=== PATIENT | female | born 1970 | race Caucasian/White ===

== ENCOUNTER → 2016-10-28 | Outpatient (CLI) | payer BC ==
[~2016-10-28] MED LIST: GLC500 PO; RIZA10TA18 PO; SUMA100T16 PO; TOPI50TA16 PO
== END | disposition home or self-care (01) ==
LOC: C.PAPS 09:52
PROVIDERS: ATTEND Physician Assistant
DX: Z01.419 Encounter for gynecological examination (general) (routine) without abnormal findings (principal)

== ENCOUNTER 2018-03-24 22:08 | Emergency (ER) | payer BC ==
[~2018-03-24] VITALS: Ht 157.5 cm; Wt 76.6 kg
[2018-03-24 22:13] VITALS: TEMP 37; Ht 157.5 cm; Wt 76.6 kg
[2018-03-24] MEDS ORDERED: KETOROLAC TROMETHAMINE 30 MG/ML VIAL IV STA (22:35)
--- NOTE | 2018-03-24 23:03 | DIAGNOSTIC IMAGING REPORT ---
L PELVIS/UNILATERAL HIP 2-3VIEWS CLINICAL HISTORY: 48 years-old Female presenting with severe left hip pain. TECHNIQUE: Single frontal view of the pelvis and frontal and frog-leg lateral views of the left hip were obtained. COMPARISON: None. FINDINGS: Sacroiliac joints, pubic symphysis, and hip joints congruent. Bony pelvis intact. No acute fracture or malalignment. No advanced degenerative change. The left femoral head is normal-appearing and symmetric. IMPRESSION: No acute osseous injury. Electronically signed by: Bk Billingsley M.D. 03/24/2018 11:02 PM Dictated Date/Time: 03/24/2018 11:00 PM
[2018-03-24 23:05] LABS: BASO % 0.6 %; BASO ABS # 0.07 K/uL (0-0.2); EOS % 5.1 %; HEMATOCRIT 43.8 % (37-47); HEMOGLOBIN 14.3 g/dL (12.0-16.0); IG# 0.04 K/uL (0.00-0.02); LYMPH % 27.2 %; LYMPH ABS # 3.19 K/uL (1.2-3.4); MEAN CELL VOLUME 84.6 fL (80-100); MEAN CORPUSCULAR HEMOGLOBIN 27.6 pg (25-34); MEAN CORPUSCULAR HGB CONC 32.6 g/dl (32-36); MEAN PLATELET VOLUME 10.5 fL (7.4-10.4); MONO % 9.5 %; MONO ABS # 1.12 K/uL (0.11-0.59); NEUT % 57.3 %; NEUT ABS # 6.71 K/uL (1.4-6.5); PLATELET COUNT 379 K/uL (130-400); RED CELL DISTRIBUTION WIDTH CV 13.5 % (11.5-14.5); RED CELL DISTRIBUTION WIDTH SD 41.1 fL (36.4-46.3); WHITE BLOOD COUNT 11.73 K/uL (4.8-10.8)
[2018-03-24 23:24] LABS: CALCIUM 9.1 mg/dl (8.5-10.1); CREATININE 0.91 mg/dl (0.60-1.20)
[2018-03-24 23:29] LABS: POTASSIUM 3.8 mmol/L (3.5-5.1)
[2018-03-24] MEDS ORDERED: PANT40TA PO (23:34)
[2018-03-24] MEDS ORDERED: SUCR1TAB29 PO (23:39)
[2018-03-24] MEDS ORDERED: DICY10CA55 PO (23:41)
[2018-03-25] MEDS ORDERED: OPTIRAY 320 IV PRN
[2018-03-25] MEDS ORDERED: MoRPHine SULFATE 4 MG/ML 1 ML CARP\\VIAL IV STA (01:12)
[2018-03-25] MEDS ORDERED: ONDANSETRON INJ 2 MG/ML 2 ML VIAL IV STA (01:12)
[2018-03-25] MEDS ORDERED: OXYCODONE IR HOME PACK PO ONE (01:15)
[2018-03-25] MEDS ORDERED: ONDANSETRON HOME PACK 4MG OD TAB PO ONE (01:15)
[2018-03-25 01:38] VITALS: BP 145/90; PULSE 78; O2SAT 98
--- NOTE | 2018-03-25 04:19 | EMERGENCY ROOM VISIT NOTE ---
History First contact with patient: 22:21 Chief Complaint: HIP PAIN Stated Complaint: LEFT HIP PAIN History of Present Illness The patient is a 48 year old female who presents to the Emergency Room with complaints of severe left hip pain getting progressively worse over the past 4 days. She states she feels like it might be swollen. No injury to the area. Pain described as aching, ranging in severity 6 out of 10 worse with movement and better with rest. It does not radiate. Patient denies chest pain, dyspnea , fever, chills, nausea, vomiting, diarrhea, back pain, urinary symptoms, numbness, tingling, localized weakness. Review of Systems An 10 system review of systems was completed with positives and pertinent negatives listed in the HPI. Past Medical/Surgical History IBS, PCO S, GERD, migraines Social History Smoking Status: Never Smoker Alcohol Use: none Drug Use: none Marital Status: Housing Status: lives with family Current/Historical Medications Scheduled Pantoprazole (Protonix), 40 MG PO DAILY Rizatriptan Benzoate (Maxalt), 10 MG PO PRN Sucralfate (Carafate), 1 GM PO QID Sumatriptan Succinate (Imitrex), 100 MG PO PRN Scheduled PRN Dicyclomine Hcl (Bentyl), 10 MG PO TID PRN for CRAMPING Physical Exam Vital Signs Date Time Temp Pulse Resp B/P (MAP) Pulse Ox O2 Delivery O2 Flow Rate FiO2 03/25/18 01:38 78 20 145/90 98 Room Air 03/25/18 00:17 82 22 136/85 98 Room Air 03/24/18 22:13 37.0 106 20 163/96 97 Room Air Physical Exam VITALS: Vitals are noted on the nurse's note and reviewed by myself. Vital signs reviewed. GENERAL: Pleasant female, in no acute distress, nondiaphoretic, well-developed well-nourished. SKIN: The skin was without rashes, erythema, edema, or bruising. There is no tenting of the skin. Capillary reflex less than 2 seconds. HEAD: Normocephalic atraumatic. EARS: External auditory canals clear, tympanic membranes pearly rodriguez without erythema or effusion bilaterally. EYES: Pupils equal round and reactive to light and accommodation. Conjunctivae without injection, sclerae without icterus. Extraocular movements intact. NOSE: Patent, turbinates without inflammation or discharge. MOUTH: Mucous membranes moist. Pharynx without erythema or exudate. Uvula midline. Airway patent. Tongue does not deviate. NECK: Supple without nuchal rigidity. No lymphadenopathy. No thyromegaly. Cervical spine is nontender. No JVD. HEART: Regular rate and rhythm without murmurs gallops or rubs. LUNGS: Clear to auscultation bilaterally without wheezes, rales or rhonchi. No retractions or accessory muscle use. ABDOMEN: Positive bowel sounds x 4. Normal tympanic percussion. Soft, nontender, without masses or organomegaly. Mcbride sign negative. No guarding or rebound tenderness. No CVA tenderness MUSCULOSKELETAL: No muscle atrophy, erythema, or edema noted. Pelvis stable. Left hip tender to palpation with increased pain with range of motion, right hip nontender to palpation. No thoracic or lumbar tenderness on exam. Patient can ambulate. She can plantarflex and dorsiflex. Patellar reflexes +2 equal and present bilaterally. NEURO: Patient was alert and oriented to person place and time. Normal sensation to light and sharp touch. No focal neurological deficits. Medical Decision & Procedures Laboratory Results 03/24/18 22:50 Red Blood Count 5.18, Mean Corpuscular Volume 84.6, Mean Corpuscular Hemoglobin 27.6, Mean Corpuscular Hemoglobin Concent 32.6, Mean Platelet Volume 10.5, Neutrophils (%) (Auto) 57.3, Lymphocytes (%) (Auto) 27.2, Monocytes (%) (Auto) 9.5, Eosinophils (%) (Auto) 5.1, Basophils (%) (Auto) 0.6, Neutrophils # (Auto) 6.71, Lymphocytes # (Auto) 3.19, Monocytes # (Auto) 1.12, Eosinophils # (Auto) 0.60, Basophils # (Auto) 0.07 03/24/18 22:50 Test 03/24/18 22:50 White Blood Count 11.73 K/uL (4.8-10.8) Red Blood Count 5.18 M/uL (4.2-5.4) Hemoglobin 14.3 g/dL (12.0-16.0) Hematocrit 43.8 % (37-47) Mean Corpuscular Volume 84.6 fL (80-100) Mean Corpuscular Hemoglobin 27.6 pg (25-34) Mean Corpuscular Hemoglobin Concent 32.6 g/dl (32-36) Platelet Count 379 K/uL (130-400) Mean Platelet Volume 10.5 fL (7.4-10.4) Neutrophils (%) (Auto) 57.3 % Lymphocytes (%) (Auto) 27.2 % Monocytes (%) (Auto) 9.5 % Eosinophils (%) (Auto) 5.1 % Basophils (%) (Auto) 0.6 % Neutrophils # (Auto) 6.71 K/uL (1.4-6.5) Lymphocytes # (Auto) 3.19 K/uL (1.2-3.4) Monocytes # (Auto) 1.12 K/uL (0.11-0.59) Eosinophils # (Auto) 0.60 K/uL (0-0.5) Basophils # (Auto) 0.07 K/uL (0-0.2) RDW Standard Deviation 41.1 fL (36.4-46.3) RDW Coefficient of Variation 13.5 % (11.5-14.5) Immature Granulocyte % (Auto) 0.3 % Immature Granulocyte # (Auto) 0.04 K/uL (0.00-0.02) Erythrocyte Sedimentation Rate 36 mm/hr (0-21) Anion Gap 8.0 mmol/L (3-11) Est Creatinine Clear Calc Drug Dose 72.5 ml/min Estimated GFR () 86.5 Estimated GFR (Non- 74.6 BUN/Creatinine Ratio 12.2 (10-20) Calcium Level 9.1 mg/dl (8.5-10.1) C-Reactive Protein 0.63 mg/dl (0-0.29) Lyme Disease IgG Antibody NEG (NEG) Lyme Disease IgM Antibody NEG (NEG) Medications Administered Medications (Trade) Dose Ordered Sig/Steven Route Start Time Stop Time Status Last Admin Dose Admin Ketorolac Tromethamine (Toradol Inj) 10 mg NOW STAT IV 03/24/18 22:35 03/24/18 22:41 DC 03/24/18 22:35 10 MG Morphine Sulfate (MoRPHine SULFATE INJ) 4 mg NOW STAT IV 03/25/18 01:12 03/25/18 01:14 DC 03/25/18 01:32 4 MG Ondansetron HCl (Zofran Inj) 4 mg NOW STAT IV 03/25/18 01:12 03/25/18 01:14 DC 03/25/18 01:32 4 MG Ondansetron HCl (ZOFRAN ODT 4MG Home Pack) 1 homepack UD ONCE PO 03/25/18 01:15 03/25/18 01:16 DC 03/25/18 01:32 1 HOMEPACK Oxycodone HCl (Roxicodone Immediate Rel 5MG Home Pack) 1 homepack UD ONCE PO 03/25/18 01:15 03/25/18 01:16 DC 03/25/18 01:32 1 HOMEPACK ED Course Prior records/ancillary studies reviewed. Triage Nursing notes reviewed. Additional history obtained from family The patient's history was concerning for left hip pain. Differential diagnosis: Etiologies such as musculoskeletal, disc herniation, fracture, aortic disease, metastatic disease, cord compression, discitis, infection, renal colic, gastrointestinal, acute exacerbation of chronic hip pain, sciatica, cauda equina , as well as others were entertained. Physical findings: As above. No focal neurologic findings noted. ER treatment provided: Toradol On reassessment the patient felt better. Diagnostics interpreted by me: The labs revealed mild leukocytosis. Patient states her white blood count normally hovers around here. Slightly elevated inflammatory markers. Imaging studies: CT LEFT HIP: Prior from 07/06/2009 CT abdomen and pelvis. No acute fracture or dislocation. No significant soft tissue abnormality visualized Radiologist: Mariposa Prajapati M.D. This appears to be consistent with left hip pain most likely muscle skeletal in nature. Patient had no signs of a septic hip. She was able to ambulate. She had full range of motion with minimal pain. She chronically states she has a white count 11,000 and no acute findings on CT imaging. She is advised to stretch the area around follow-up with orthopedics in a few days or here in the ER sooner for severe pain, numbness, tingling, fevers, worsening signs or symptoms or as needed. By the evaluation outlined above emergent etiologies such as fracture, aortic disease, metastatic disease, infection, renal colic, gastrointestinal, cord compression, cauda equina, as well as others were deemed relatively unlikely. The pt informed about the findings as listed above. All questions were answered and pleased with the treatment. Return instructions were outlined and the patient was discharged in stable condition. Referral: The patient was referred back to orthopedics and primary care physician for follow-up in 2 to 3 days for a recheck of the current condition. Medical Decision As above Medication Reconcilliation Current Medication List: was personally reviewed by me Blood Pressure Screening Patient's blood pressure: Elevated blood pressure Blood pressure disposition: Elevated BP felt to be situational Impression Primary Impression: Left hip pain Departure Information Dispostion Home / Self-Care Condition GOOD Referrals Bishop Cueto MD Forms WORK / SCHOOL INSTRUCTIONS, HOME CARE DOCUMENTATION FORM, IMPORTANT VISIT INFORMATION Patient Instructions My [facility] Additional Instructions DO NOT drive, drink alcohol, operate machinery, or perform dangerous activities today. You were given medications in the ER that can affect your ability to safely function or operate a vehicle. Oxycodone (OxyIR) 5mg: Take 1-2 pills every four hours for breakthrough pain. Avoid alcohol, operating machinery or dangerous equipment, working on ladders or roofs, DRIVING, or situations where being under the influence may be dangerous. It is recommended to use an [id number] stool softener such as Colace, 100mg twice daily while taking this medication to avoid constipation. Ibuprofen(Motrin, Advil) may be used for fever or pain. Use 600mg every six hours as needed. Take with food. Avoid using more than 2400mg in a 24 hour period. Do not use 2400mg per day for more than three consecutive days without physician direction. Prolonged inappropriate use can lead to stomach upset or ulcers. This medication can be taken if you need to drive, work, or perform activities which may be dangerous when taking narcotic pain medication. (AND/OR) Acetaminophen(Tylenol) may be used for fever or pain. Use 1000mg every six hours as needed. Avoid using more than 3000mg in a 24 hour period. This medication can be taken if you need to drive, work, or perform activities which may be dangerous when taking narcotic pain medication. Continue current medications. Return to the ER immediately for any numbness, tingling, severe pain, extreme swelling in the extremity or as needed. Call Orthopedics tomorrow to arrange follow up for your ongoing hip problem.
--- NOTE | 2018-03-25 08:02 | DIAGNOSTIC IMAGING REPORT ---
CT OF THE LEFT HIP WITH CONTRAST CLINICAL HISTORY: Severe left hip pain. No recent trauma. Evaluate for fluid collection or infectious process. COMPARISON STUDY: CT of the abdomen and pelvis July 06, 2009 and pelvis and left hip radiograph March 24, 2018. TECHNIQUE: Axial images of the left hip were obtained following intravenous injection of 93 cc Optiray 320 IV. Sagittal and coronal reconstructions were reviewed. FINDINGS: Visualized portions of the left hemipelvis are within normal limits. There is no left inguinal lymphadenopathy. No mass or fluid collection is identified by CT. Alignment of the left hip is anatomic. There is no fracture or osseous lesion. There is no evidence for avascular necrosis. Left hip joint space is preserved. Sacroiliac joints are intact. IMPRESSION: Unremarkable CT of the left hip. Electronically signed by: José Miguel Wallace M.D. 03/25/2018 8:01 AM Dictated Date/Time: 03/25/2018 7:57 AM
== END 2018-03-25 01:52 | disposition home or self-care (01) ==
LOC: C.EDB 22:09 → C.EDA 03-25 01:52
DX: M25.552 Pain in left hip (principal); K58.9 Irritable bowel syndrome, unspecified; K21.9 Gastro-esophageal reflux disease without esophagitis; E28.2 Polycystic ovarian syndrome; Z79.899 Other long term (current) drug therapy

== ENCOUNTER 2021-02-24 18:25 | Observation (INO) ==
[2021-02-24 20:34] LABS: Basophils # (auto) 0.06 K/uL (0-0.2); Basophils % (auto) 0.5 %; Eosinophils # (auto) 0.35 K/uL (0-0.5); Eosinophils % (auto) 2.7 %; Hematocrit (blood only) 39.9 % (37-47); Hemoglobin 12.8 g/dL (12.0-16.0); Immature Granulocytes # (auto) 0.11 K/uL (0.00-0.02); Immature Granulocytes % (auto) 0.8 %; Lymphocytes # (auto) 3.12 K/uL (1.2-3.4); Lymphocytes % (auto) 23.8 %; Mean Corpuscular Hemoglobin 26.8 pg (25-34); Mean Corpuscular Hgb Conc 32.1 g/dL (32-36); Mean Corpuscular Volume 83.5 fL (80-100); Mean Platelet Volume 10.2 fL (7.4-10.4); Monocytes # (auto) 1.24 K/uL (0.11-0.59); Monocytes % (auto) 9.5 %; Neutrophils # (auto) 8.22 K/uL (1.4-6.5); Neutrophils % (auto) 62.7 %; Platelet Count 411 K/uL (130-400); RDW Coefficient of Variation 16.4 % (11.5-14.5); RDW Standard Deviation 47.6 fL (36.4-46.3); Red Blood Count 4.78 M/uL (4.2-5.4)
[2021-02-24 20:44] LABS: Partial Thromboplastin Ratio 0.9; Partial Thromboplastin Time 23.9 Seconds (21.0-31.0); Prothrombin Time 9.8 Seconds (9.0-12.0)
[2021-02-24 20:51] LABS: BUN Creatinine Ratio 18.7 (10-20); Blood Urea Nitrogen 10 mg/dl (7-18); Calcium 9.2 mg/dl (8.5-10.1); Carbon Dioxide 27 mmol/L (21-32); Chloride 107 mmol/L (98-107); Creatinine Clr Calc Pharmacy 118.4 ml/min; Est GFR (African American) 125.1 ml/min; Glucose 110 mg/dl (70-99); Lipase 226 U/L (73-393); Magnesium 2.1 mg/dl (1.8-2.4); Potassium 3.9 mmol/L (3.5-5.1); Sodium 138 mmol/L (136-145)
[2021-02-24 20:55] LABS: Troponin I < 0.015 ng/ml (0-0.045)
[2021-02-24 21:34] LABS: Alanine Aminotransferase 73 U/L (12-78); Albumin Level 3.5 gm/dl (3.4-5.0); Alkaline Phosphatase 109 U/L (45-117); Aspartate Aminotransferase 35 U/L (15-37); Bilirubin Direct < 0.1 mg/dl (0-0.2); Bilirubin,Total 0.1 mg/dl (0.2-1); Total Protein 8.2 gm/dl (6.4-8.2)
--- NOTE | 2021-02-24 22:03 | Emergency Department Note ---
History of Present Illness General Chief Complaint: Illness Stated Complaint: DIZZY, NAUSEA, VERTIGO Time Seen by Provider: 02/24/21 19:42 History of Present Illness Provider Complaint: + palpitations Onset (ago): week(s) (1) Duration: + Intermittent Severity: moderate Maximum Pain Intensity: 5 Context: + occurred during rest Associated symptoms: + shortness of breath, + near-syncope and + nausea; no chest pain, no vomiting, no cough, no paresthesias or no muscle cramps Home Medications Medication Instructions Recorded Confirmed Type dicyclomine 10 mg capsule 10 mg PO TID PRN 07/17/18 02/24/21 History multivitamin 1 tab PO QAM 07/17/18 02/24/21 History rizatriptan 10 mg tablet (Maxalt) 1 tab PO UD PRN 07/17/18 02/24/21 History sumatriptan succinate 100 mg 1 tab PO UD PRN 07/17/18 02/24/21 History tablet (Imitrex) omeprazole 40 mg capsule,delayed 40 mg PO QAM cap 04/03/19 02/24/21 History release diclofenac sodium 1 % topical gel 2 g TOPICAL QID 03/20/20 02/24/21 History (Voltaren) meloxicam 7.5 mg tablet 7.5 mg PO DAILY PRN 11/05/20 02/24/21 History metoprolol succinate 50 mg 50 mg PO BID 11/05/20 02/24/21 History tablet,extended release 24 hr sucralfate 1 gram tablet 1 g PO QID tab 01/26/21 02/24/21 History cholecalciferol (vitamin D3) 50 50 mcg PO QAM 02/01/21 02/24/21 History mcg (2,000 unit) capsule acetaminophen 500 mg tablet 1,000 mg PO QID PRN 02/22/21 02/24/21 History (Tylenol Extra Strength) ascorbic acid (vitamin C) 500 mg 500 mg PO QAM 02/22/21 02/24/21 History tablet (Vitamin C) ibuprofen 200 mg tablet (Advil) 400 mg PO Q6H PRN 02/22/21 02/24/21 History ibuprofen-diphenhydramine citrate 1 cap PO HS PRN 02/22/21 02/24/21 History 200 mg-38 mg tablet (Advil PM) Allergies Allergy/AdvReac Type Severity Reaction Status Date / Time erythromycin base Allergy Intermediate VOMITTING Verified 02/24/21 22:55 lamotrigine [From Lamictal] Allergy Mild Rash Verified 02/24/21 22:55 Penicillins Allergy Mild Rash Verified 02/24/21 22:55 nitrofurantoin Allergy hives Verified 02/24/21 22:55 [From Macrobid] Past Med/Surg History Medical History GERD (gastroesophageal reflux disease) Hiatal hernia History of IBS Hyperlipidemia BORDERLINE HIGH Migraine Nephrolithiasis Polycystic ovarian syndrome Proteinuria Temporomandibular joint disorder Surgical History History of colonoscopy History of cystoscopy History of esophagogastroduodenoscopy (EGD) History of tooth extraction Hx of laparoscopy Diagnostic with normal findings 07/26/2018. Nausea and vomiting after administration of anesthetic agent S/P hemorrhoidectomy S/P wrist surgery RT WRIST SURGERY Family History Mother Suicide Depression Aunt Uterine cancer great aunt Father Dyslipidemia Heart disease Denies family history of Ovarian cancer Prostate cancer Breast cancer FH: pancreatic cancer Colorectal cancer Social History Smoking Status: Never smoker Second Hand Exposure: No; Hx Alcohol Use: Yes Alcohol type: wine Hx Substance Use: No Preferred Language: Haitian Communication Ability: Effective Visual Impairment: No Limitations Hearing Ability: Normal Copyman Required: No Beliefs That Will Affect Care: None Current Living Situation: Spouse current occupational status: employed 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 Feels Safe at Home: Yes Assistive Devices: Contacts and Glasses Review of Systems A total of 10 systems reviewed and were otherwise negative Physical Exam Vital Signs: Vital Signs - 24 hr 02/24/21 18:27 02/24/21 20:21 02/24/21 20:30 Temperature 37.2 C Temperature Source Temporal Artery Sc an Pulse Rate 109 H 100 H Pulse Rate [Apical ] 108 H Pulse Rate from Sp O2 Sensor Respiratory Rate 18 22 26 H Respiratory Effort / Characteristics Non-Labored Sponta neous Respiratory Depth Normal Blood Pressure 150/88 H 112/66 Blood Pressure [Le ft Arm] 128/77 Blood Pressure Heather n 108 81 Blood Pressure Heather n [Left Arm] 94 Blood Pressure Pos ition Sitting Pulse Oximetry 100 100 Oxygen Delivery Me thod Room Air Room Air Sepsis Recent Feve r Within 48 Hours No Sepsis New/Unexpla ined Change in Men leah Status N/A Sepsis Action Take n by Nursing No Action Required 02/24/21 21:01 02/24/21 21:30 02/24/21 22:00 Temperature Temperature Source Pulse Rate 98 H 98 H Pulse Rate [Apical ] Pulse Rate from Sp O2 Sensor 97 H 98 H Respiratory Rate 20 24 Respiratory Effort / Characteristics Respiratory Depth Blood Pressure 132/81 119/86 127/83 Blood Pressure [Le ft Arm] Blood Pressure Heather n 98 97 97 Blood Pressure Heather n [Left Arm] Blood Pressure Pos ition Pulse Oximetry 94 98 Oxygen Delivery Me thod Room Air Room Air Sepsis Recent Feve r Within 48 Hours Sepsis New/Unexpla ined Change in Men leah Status Sepsis Action Take n by Nursing 02/24/21 22:30 02/24/21 23:00 02/24/21 23:30 Temperature Temperature Source Pulse Rate 92 H 86 91 H Pulse Rate [Apical ] Pulse Rate from Sp O2 Sensor 95 H 86 Respiratory Rate 17 15 16 Respiratory Effort / Characteristics Respiratory Depth Blood Pressure 126/76 131/96 109/78 Blood Pressure [Le ft Arm] Blood Pressure Heather n 92 107 88 Blood Pressure Heather n [Left Arm] Blood Pressure Pos ition Pulse Oximetry 99 99 98 Oxygen Delivery Me thod Room Air Sepsis Recent Feve r Within 48 Hours Sepsis New/Unexpla ined Change in Men leah Status Sepsis Action Take n by Nursing 02/25/21 00:00 02/25/21 00:30 Temperature Temperature Source Pulse Rate 88 90 Pulse Rate [Apical ] Pulse Rate from Sp O2 Sensor 90 92 H Respiratory Rate 20 22 Respiratory Effort / Characteristics Respiratory Depth Blood Pressure 119/74 136/92 Blood Pressure [Le ft Arm] Blood Pressure Heather n 89 106 Blood Pressure Heather n [Left Arm] Blood Pressure Pos ition Pulse Oximetry 96 99 Oxygen Delivery Me thod Sepsis Recent Feve r Within 48 Hours Sepsis New/Unexpla ined Change in Men leah Status Sepsis Action Take n by Nursing Physical Exam: Physical Exam GENERAL: She is oriented to person, place, and time. She appears well-developed and well-nourished. She does not appear distressed. Patient is stammering. Patient states she has a history of stammering over the last 3 months and is scheduled to see a specialist at [facility] because she states her doctors thinks it is a combination between a neurological and psychiatric problem in addition to her polypharmacy. HENT: Exam performed. -Head: Normocephalic and atraumatic. -Right Ear: External ear normal. No mastoid tenderness. -Left Ear: External ear normal. No mastoid tenderness. -Mouth/Throat: The oropharynx is clear and moist. No trismus in the jaw. No dental abscesses or uvula swelling. No oropharyngeal exudate or tonsillar abscesses. EYES: Conjunctivae and EOM are normal. Pupils are equal, round, and reactive to light. Right eye exhibits no discharge. Left eye exhibits no discharge. No scleral icterus. NECK: Normal range of motion. Neck supple. No JVD present. No spinous process tenderness present. No carotid bruit present. No rigidity. No tracheal deviation and normal range of motion present. No Brudzinski's sign and no Kernig's sign noted. CV: Normal rate, regular rhythm, normal heart sounds and intact distal pulses. There is no peripheral edema. Palpable radial pulses bue. PULM/CHEST: Effort normal and breath sounds normal. No respiratory distress. No stridor. She has no wheezes. She has no rales. -Chest Wall: She exhibits no tenderness. ABD: The abdomen is soft. Bowel sounds are normal. She has no distension. No mass is present. There is no tenderness. There is no rebound, no guarding, no Mcbride's sign and no tenderness at McBurney's point. Rovsig negative MUSC/SKEL: Normal range of motion. There is no peripheral edema, tenderness or deformity. LYMPH: No cervical adenopathy. NEURO: She is alert and oriented to person, place, and time. She has normal strength. No cranial nerve deficit or sensory deficit. Coordination and gait normal. GCS eye subscore is 4. GCS verbal subscore is 5. GCS motor subscore is 6. Cerebellar tests wnl. SKIN: Skin is warm and dry. She is not diaphoretic. PSYCH: She has a normal mood and affect. Behavior is normal. Judgment and thought content normal. Course Course 1941: The patient was evaluated in room B12. A complete history and physical exam was performed Cardiac monitoring: An order was placed for continuous cardiac monitoring. The monitor shows a rate of 90 with sinus rhythm EMR reviewed. Patient was seen in the emergency department 2 days ago on February 22, 2021. At that time she had blood work done which showed an elevated white blood cell count of 16 and elevated liver enzymes. Patient had an elevated D- dimer and a CTA of the chest which was negative for PE. Patient was discharged with follow-up PCP. 2200: Vital signs stable. Labs within normal limits with the exception of an improving white blood cell count of 13. Liver enzymes have normalized. Troponin negative. I did discuss these results with the patient. Both the patient and her at bedside state they did not feel comfortable leaving and they state they feel like something is wrong with her given her continuing palpitations and exertional dyspnea. Patient was offered inpatient observation which she exuberantly accepted. [facility] hospitalist Dr. Weeks will be notified. Administered Medications Discontinued Medications Acetaminophen (Acetaminophen 325 Mg Tab) 650 mg PO NOW STA Stop: 02/24/21 23:53 Last Admin: 02/24/21 23:57 Dose: 650 mg Documented by: [id number] Medical Decision Making Laboratory Data Result diagrams: 02/24/21 20:23 02/24/21 20:23 Lab Results 02/24/21 02/24/21 02/24/21 Range/Units 20:23 20:23 20:23 WBC 13.10 H (4.8-10.8) K/uL RBC 4.78 (4.2-5.4) M/uL Hgb 12.8 (12.0-16.0) g/dL Hct 39.9 (37-47) % MCV 83.5 (80-100) fL MCH 26.8 (25-34) pg MCHC 32.1 (32-36) g/dL RDW Std Deviation 47.6 H (36.4-46.3) fL RDW Coeff of Alba 16.4 H (11.5-14.5) % Plt Count 411 H (130-400) K/uL MPV 10.2 (7.4-10.4) fL Immature Gran % (Auto) 0.8 % Neut % (Auto) 62.7 % Lymph % (Auto) 23.8 % Luce % (Auto) 9.5 % Eos % (Auto) 2.7 % Baso % (Auto) 0.5 % Neut # (Auto) 8.22 H (1.4-6.5) K/uL Lymph # (Auto) 3.12 (1.2-3.4) K/uL Luce # (Auto) 1.24 H (0.11-0.59) K/uL Eos # (Auto) 0.35 (0-0.5) K/uL Baso # (Auto) 0.06 (0-0.2) K/uL Immature Gran # (Auto) 0.11 H (0.00-0.02) K/uL PT 9.8 (9.0-12.0) Seconds INR 1.0 (0.9-1.1) APTT 23.9 (21.0-31.0) Seconds PTT Ratio 0.9 Sodium 138 (136-145) mmol/L Potassium 3.9 (3.5-5.1) mmol/L Chloride 107 (98-107) mmol/L Carbon Dioxide 27 (21-32) mmol/L Anion Gap 5.0 (3-11) BUN 10 (7-18) mg/dl Creatinine 0.56 L (0.6-1.2) mg/dl Est Cr Clr Drug Dosing 118.4 ml/min Est GFR ( Amer) 125.1 ml/min Est GFR (Non-Af Amer) 108.0 ml/min BUN/Creatinine Ratio 18.7 (10-20) Glucose 110 H (70-99) mg/dl Calcium 9.2 (8.5-10.1) mg/dl Magnesium 2.1 (1.8-2.4) mg/dl Total Bilirubin 0.1 L (0.2-1) mg/dl Direct Bilirubin < 0.1 (0-0.2) mg/dl AST 35 (15-37) U/L ALT 73 (12-78) U/L Alkaline Phosphatase 109 (45-117) U/L Troponin I < 0.015 (0-0.045) ng/ml Total Protein 8.2 (6.4-8.2) gm/dl Albumin 3.5 (3.4-5.0) gm/dl Lipase 226 (73-393) U/L COVID-19 Eval Order SARS-CoV-2 (PCR) (Negative) 07/21/21 07/21/21 Range/Units 22:07 22:07 WBC (4.8-10.8) K/uL RBC (4.2-5.4) M/uL Hgb (12.0-16.0) g/dL Hct (37-47) % MCV (80-100) fL MCH (25-34) pg MCHC (32-36) g/dL RDW Std Deviation (36.4-46.3) fL RDW Coeff of Alba (11.5-14.5) % Plt Count (130-400) K/uL MPV (7.4-10.4) fL Immature Gran % (Auto) % Neut % (Auto) % Lymph % (Auto) % Luce % (Auto) % Eos % (Auto) % Baso % (Auto) % Neut # (Auto) (1.4-6.5) K/uL Lymph # (Auto) (1.2-3.4) K/uL Luce # (Auto) (0.11-0.59) K/uL Eos # (Auto) (0-0.5) K/uL Baso # (Auto) (0-0.2) K/uL Immature Gran # (Auto) (0.00-0.02) K/uL PT (9.0-12.0) Seconds INR (0.9-1.1) APTT (21.0-31.0) Seconds PTT Ratio Sodium (136-145) mmol/L Potassium (3.5-5.1) mmol/L Chloride (98-107) mmol/L Carbon Dioxide (21-32) mmol/L Anion Gap (3-11) BUN (7-18) mg/dl Creatinine (0.6-1.2) mg/dl Est Cr Clr Drug Dosing ml/min Est GFR ( Amer) ml/min Est GFR (Non-Af Amer) ml/min BUN/Creatinine Ratio (10-20) Glucose (70-99) mg/dl Calcium (8.5-10.1) mg/dl Magnesium (1.8-2.4) mg/dl Total Bilirubin (0.2-1) mg/dl Direct Bilirubin (0-0.2) mg/dl AST (15-37) U/L ALT (12-78) U/L Alkaline Phosphatase (45-117) U/L Troponin I (0-0.045) ng/ml Total Protein (6.4-8.2) gm/dl Albumin (3.4-5.0) gm/dl Lipase (73-393) U/L COVID-19 Eval Order Cov[address] [facility] SARS-CoV-2 (PCR) NEGATIVE (Negative) Imaging Data My Impression: Chest x-ray: No significant change from the chest x-ray done 2 days ago. ECG Data Indication: palpitations and SOB/dyspnea Rate (beats per minute): 96 Rhythm: normal sinus Findings: no ST depression, no ST elevation or no prolonged QT Additional Comments: QRS 62 MDM Narrative 1941: The patient was evaluated in room B12. A complete history and physical e xam was performed Cardiac monitoring: An order was placed for continuous cardiac monitoring. The monitor shows a rate of 90 with sinus rhythm EMR reviewed. Patient was seen in the emergency department 2 days ago on February 22, 2021. At that time she had blood work done which showed an elevated white blood cell count of 16 and elevated liver enzymes. Patient had an elevated D- dimer and a CTA of the chest which was negative for PE. Patient was discharged with follow-up PCP. 2200: Vital signs stable. Labs within normal limits with the exception of an improving white blood cell count of 13. Liver enzymes have normalized. Troponin negative. I did discuss these results with the patient. Both the patient and her at bedside state they did not feel comfortable leaving and they state they feel like something is wrong with her given her continuing palpitations and exertional dyspnea. Patient was offered inpatient observation which she exuberantly accepted. [facility] hospitalist Dr. Weeks will be notified. Impression & Plan Palpitations, Exertional dyspnea Discharge Plan Visit Data Chief Complaint: Illness Stated Complaint: DIZZY, NAUSEA, VERTIGO ED Provider: Teodoro Mendieta Discharge Problem: Palpitations, Exertional dyspnea Patient Disposition: Being Evaluated by Hospitalist Forms Stand Alone Forms: My [facility] Prescriptions Prescriptions: No Action diclofenac sodium [Voltaren] 1 % gel 2 g topical QID RF: 0 cholecalciferol (vitamin D3) 50 mcg (2,000 unit) capsule 50 mcg PO QAM RF: 0 sucralfate 1 gram tablet 1 g PO QID RF: 0 metoprolol succinate 50 mg tablet extended release 24 hr 50 mg PO BID RF: 0 meloxicam 7.5 mg tablet 7.5 mg PO DAILY PRN (Reason: Pain) RF: 0 multivitamin Tablet 1 tab PO QAM RF: 0 sumatriptan succinate [Imitrex] 100 mg Tablet 1 tab PO UD PRN (Reason: Migraine Headache) RF: 0 rizatriptan [Maxalt] 10 mg Tablet 1 tab PO UD PRN (Reason: Migraine Headache) RF: 0 dicyclomine 10 mg Capsule 10 mg PO TID PRN (Reason: NEEDED) RF: 0 omeprazole 40 mg capsule,delayed release(DR/EC) 40 mg PO QAM RF: 0 acetaminophen [Tylenol Extra Strength] 500 mg Tablet 1,000 mg PO QID PRN (Reason: Pain) RF: 0 ascorbic acid (vitamin C) [Vitamin C] 500 mg Tablet 500 mg PO QAM RF: 0 ibuprofen [Advil] 200 mg Tablet 400 mg PO Q6H PRN (Reason: Pain) RF: 0 Advil PM 200-38 mg Tablet 1 cap PO HS PRN (Reason: Sleep) RF: 0 Referrals Referrals: Sarmad Ashley DO [Primary Care Provider] -
[2021-02-24] MEDS ORDERED: ACETAMINOPHEN 325 MG TAB PO STA (23:52)
--- NOTE | 2021-02-25 01:46 | History & Physical Report ---
Date of Service February 25, 2021 Assessment & Plan (1) Right upper quadrant abdominal pain: Plan: Right upper quadrant abdominal pain/previously abnormal LFTs- She reports having had a normal ultrasound at another facility, and was told that she would need a HIDA scan, which is scheduled for 2 weeks Order HIDA scan. NPO Famotidine 20 mg IV every 12 hours Zofran 4 mg IV every 6 hours as needed Repeat laboratories in a.m. (2) Abnormal LFTs: Plan: Repeat laboratories in a.m. (3) GERD (gastroesophageal reflux disease): Plan: Famotidine IV as noted above (4) Migraine: Plan: Continue with usual migraine treatments (5) Palpitations: (6) Heart palpitations: Plan: Continue metoprolol succinate History of Present Illness Chief Complaint: The patient presents to the emergency department with complaint of epigastric discomfort, nausea, dizziness, blurred vision and vertigo, along with several other of her chronic somatic complaints Primary Care Provider: Sarmad Ashley DO The patient is a 51-year-old female with a past medical history including abnormal LFTs, dizziness, palpitations, exertional dyspnea, proteinuria, dysfunctional uterine bleeding, myelopathy, ilioinguinal neuralgia of left side, hyperlipidemia, migraine, TMJ, GERD, IBS, hiatal hernia, and PCOS. Her main concern today is that regarding epigastric discomfort and recently abnormal LFTs, and a discussion with her outpatient physician about possibly getting a HIDA scan which is scheduled for 2 weeks. Allergies Allergy/AdvReac Type Severity Reaction Status Date / Time erythromycin base Allergy Intermediate VOMITTING Verified 02/24/21 22:55 lamotrigine [From Lamictal] Allergy Mild Rash Verified 02/24/21 22:55 Penicillins Allergy Mild Rash Verified 02/24/21 22:55 nitrofurantoin Allergy hives Verified 02/24/21 22:55 [From Macrobid] Home Medications Medication Instructions Recorded Confirmed Type dicyclomine 10 mg capsule 10 mg PO TID PRN 07/17/18 02/24/21 History multivitamin 1 tab PO QAM 07/17/18 02/24/21 History rizatriptan 10 mg tablet (Maxalt) 1 tab PO UD PRN 07/17/18 02/24/21 History sumatriptan succinate 100 mg 1 tab PO UD PRN 07/17/18 02/24/21 History tablet (Imitrex) omeprazole 40 mg capsule,delayed 40 mg PO QAM cap 04/03/19 02/24/21 History release diclofenac sodium 1 % topical gel 2 g TOPICAL QID 03/20/20 02/24/21 History (Voltaren) meloxicam 7.5 mg tablet 7.5 mg PO DAILY PRN 11/05/20 02/24/21 History metoprolol succinate 50 mg 50 mg PO BID 11/05/20 02/24/21 History tablet,extended release 24 hr sucralfate 1 gram tablet 1 g PO QID tab 01/26/21 02/24/21 History cholecalciferol (vitamin D3) 50 50 mcg PO QAM 02/01/21 02/24/21 History mcg (2,000 unit) capsule acetaminophen 500 mg tablet 1,000 mg PO QID PRN 02/22/21 02/24/21 History (Tylenol Extra Strength) ascorbic acid (vitamin C) 500 mg 500 mg PO QAM 02/22/21 02/24/21 History tablet (Vitamin C) ibuprofen 200 mg tablet (Advil) 400 mg PO Q6H PRN 02/22/21 02/24/21 History ibuprofen-diphenhydramine citrate 1 cap PO HS PRN 02/22/21 02/24/21 History 200 mg-38 mg tablet (Advil PM) Past Med/Surg History Medical History GERD (gastroesophageal reflux disease) Hiatal hernia History of IBS Hyperlipidemia BORDERLINE HIGH Migraine Nephrolithiasis Polycystic ovarian syndrome Proteinuria Temporomandibular joint disorder Surgical History History of colonoscopy History of cystoscopy History of esophagogastroduodenoscopy (EGD) History of tooth extraction Hx of laparoscopy Diagnostic with normal findings 07/26/2018. 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 Beliefs That Will Affect Care: None Current Living Situation: Spouse current occupational status: employed 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 The review of systems is otherwise negative other than for that already noted above, and at least 10 systems have been reviewed. Physical Exam Physical Exam: The patient is awake, alert and oriented 3, well developed and well nourished, normocephalic and atraumatic, lying in bed and in no acute distress. HEENT--PERRL, EOMI, mucous membranes and oropharynx normal. Neck--supple. No JVD. No bruits. Thyroid normal, trachea midline, no adenopathy. Heart--normal S1 and S2. No murmurs, rubs or gallops. Lungs--clear bilaterally, no respiratory distress, no accessory muscle use. Abdomen--normal bowel sounds and soft. Mild tenderness epigastric and right upper quadrant Extremities--no cyanosis or clubbing. No edema. Dermatologic--normal skin turgor, normal color, no abnormal lymph nodes, no rash. Neurologic--cranial nerves II through XII grossly intact. Rheumatologic--normal range of motion. Psychiatric--normal affect. Results & Data Results & Data ([facility]) Vital Signs (Past 12 Hours) Vital Signs Temp Pulse Pulse Resp BP BP Pulse Ox 02/25/21 01:01 95 H 10 L 134/81 97 02/25/21 00:30 90 22 136/92 99 02/25/21 00:00 88 20 119/74 96 02/24/21 23:30 91 H 16 109/78 98 02/24/21 23:00 86 15 131/96 99 02/24/21 22:30 92 H 17 126/76 99 02/24/21 22:00 127/83 02/24/21 21:30 98 H 24 119/86 98 02/24/21 21:01 98 H 20 132/81 94 02/24/21 20:30 100 H 26 H 112/66 02/24/21 20:21 108 H 22 128/77 100 02/24/21 18:27 99.0 F 109 H 18 150/88 H 100 Laboratory Results Laboratory Results WBC 13.10 K/uL (4.8-10.8) H 02/24/21 20:23 RBC 4.78 M/uL (4.2-5.4) 02/24/21 20:23 Hgb 12.8 g/dL (12.0-16.0) 02/24/21 20:23 Hct 39.9 % (37-47) 02/24/21 20:23 MCV 83.5 fL (80-100) 02/24/21 20:23 MCH 26.8 pg (25-34) 02/24/21 20:23 MCHC 32.1 g/dL (32-36) 02/24/21 20:23 RDW Std Deviation 47.6 fL (36.4-46.3) H 02/24/21 20:23 RDW Coeff of Alba 16.4 % (11.5-14.5) H 02/24/21 20:23 Plt Count 411 K/uL (130-400) H 02/24/21 20:23 MPV 10.2 fL (7.4-10.4) 02/24/21 20:23 Immature Gran % (Auto) 0.8 % 02/24/21 20:23 Neut % (Auto) 62.7 % 02/24/21 20:23 Lymph % (Auto) 23.8 % 02/24/21 20:23 Dickens % (Auto) 9.5 % 02/24/21 20:23 Eos % (Auto) 2.7 % 02/24/21 20:23 Baso % (Auto) 0.5 % 02/24/21 20:23 Neut # (Auto) 8.22 K/uL (1.4-6.5) H 02/24/21 20:23 Lymph # (Auto) 3.12 K/uL (1.2-3.4) 02/24/21 20:23 Dickens # (Auto) 1.24 K/uL (0.11-0.59) H 02/24/21 20:23 Eos # (Auto) 0.35 K/uL (0-0.5) 02/24/21 20:23 Baso # (Auto) 0.06 K/uL (0-0.2) 02/24/21 20:23 Immature Gran # (Auto) 0.11 K/uL (0.00-0.02) H 02/24/21 20:23 PT 9.8 Seconds (9.0-12.0) 02/24/21 20: INR 1.0 (0.9-1.1) 02/24/21 20:23 APTT 23.9 Seconds (21.0-31.0) 02/24/21 20: PTT Ratio 0.9 02/24/21 20:23 Sodium 138 mmol/L (136-145) 02/24/21 20:23 Potassium 3.9 mmol/L (3.5-5.1) 02/24/21 20:23 Chloride 107 mmol/L (98-107) 02/24/21 20:23 Carbon Dioxide 27 mmol/L (21-32) 02/24/21 20: Anion Gap 5.0 (3-11) 02/24/21 20:23 BUN 10 mg/dl (7-18) 02/24/21 20: Creatinine 0.56 mg/dl (0.6-1.2) L 02/24/21 20: Est Cr Clr Drug Dosing 118.4 ml/min 02/24/21 20:23 Est GFR ( Amer) 125.1 ml/min 02/24/21 20:23 Est GFR (Non-Af Amer) 108.0 ml/min 02/24/21 20:23 BUN/Creatinine Ratio 18.7 (10-20) 02/24/21 20: Glucose 110 mg/dl (70-99) H 02/24/21 20:23 Calcium 9.2 mg/dl (8.5-10.1) 02/24/21 20: Magnesium 2.1 mg/dl (1.8-2.4) 02/24/21 20:23 Total Bilirubin 0.1 mg/dl (0.2-1) L 02/24/21 20:23 Direct Bilirubin < 0.1 mg/dl (0-0.2) 02/24/21 20:23 AST 35 U/L (15-37) 02/24/21 20:23 ALT 73 U/L (12-78) 02/24/21 20:23 Alkaline Phosphatase 109 U/L (45-117) 02/24/21 20:23 Troponin I < 0.015 ng/ml (0-0.045) 02/24/21 20:23 Total Protein 8.2 gm/dl (6.4-8.2) 02/24/21 20:23 Albumin 3.5 gm/dl (3.4-5.0) 02/24/21 20:23 Lipase 226 U/L (73-393) 02/24/21 20:23 COVID-19 Eval Order Covid19 at [facility] 02/24/21 22:07 SARS-CoV-2 (PCR) NEGATIVE (Negative) 02/24/21 22:07 Code Status & VTE Plan Code Status Full code PG Care Time/CCT Total # of Minutes Spent Total Time Spent with Patient: Total time spent is greater than 50% in coordination of care (as documented) at patient's floor/unit and/or counseling patient: Coding Level of Care Code INT OBSERVATION CARE 70M LVL 3 Diagnoses Abnormal LFTs R94.5 Right upper quadrant abdominal pain R10.11 GERD (gastroesophageal reflux disease) K21.9 Migraine G43.909 Palpitations R00.2 Heart palpitations R00.2
[2021-02-25] MEDS ORDERED: MELOXICAM 7.5 MG TAB PO PRN (03:00)
[2021-02-25] MEDS ORDERED: RIZATRIPTAN BENZOATE 10 MG TAB PO PRN (03:00)
[2021-02-25] MEDS ORDERED: DICYCLOMINE HCL 10 MG CAP PO PRN (03:00)
[2021-02-25] MEDS ORDERED: SUMAtriptan succinate 100 MG TAB PO PRN (03:00)
[2021-02-25] MEDS ORDERED: ACETAMINOPHEN 500 MG TAB PO PRN (03:15)
[2021-02-25] MEDS ORDERED: NSS + 20MEQ KCL 20 MEQ/1,000 ML BAG IV SCH (03:30)
[2021-02-25] MEDS ORDERED: FAMOTIDINE 20 MG in SYRINGE 3 ML IV SCH (04:00)
--- NOTE | 2021-02-25 06:36 | XRay Report ---
XR chest 2V PA/lateral CLINICAL HISTORY: Chest Pain COMPARISON STUDY: Chest radiograph and chest CT February 22, 2021. FINDINGS: Lung volumes are at the lower limits of normal. Lungs are clear. There is no pneumothorax o r pleural effusion. Cardiac size is normal. Mediastinal contours are normal. There is no evidence for pulmonary edema. IMPRESSION: No acute cardiopulmonary findings. ACT 112: Negative or not required by law. Electronically signed by: José Miguel Wallace M.D. 02/25/2021 6:35 AM
[2021-02-25 07:15] LABS: Basophils # (auto) 0.08 K/uL (0-0.2); Basophils % (auto) 0.6 %; Eosinophils # (auto) 0.31 K/uL (0-0.5); Eosinophils % (auto) 2.4 %; Hematocrit (blood only) 40.4 % (37-47); Hemoglobin 12.9 g/dL (12.0-16.0); Immature Granulocytes # (auto) 0.12 K/uL (0.00-0.02); Immature Granulocytes % (auto) 0.9 %; Lymphocytes # (auto) 2.66 K/uL (1.2-3.4); Lymphocytes % (auto) 20.6 %; Mean Corpuscular Hemoglobin 26.3 pg (25-34); Mean Corpuscular Hgb Conc 31.9 g/dL (32-36); Mean Corpuscular Volume 82.4 fL (80-100); Mean Platelet Volume 10.2 fL (7.4-10.4); Monocytes # (auto) 0.98 K/uL (0.11-0.59); Monocytes % (auto) 7.6 %; Neutrophils # (auto) 8.78 K/uL (1.4-6.5); Neutrophils % (auto) 67.9 %; Platelet Count 397 K/uL (130-400); RDW Coefficient of Variation 16.6 % (11.5-14.5); RDW Standard Deviation 47.3 fL (36.4-46.3); White Blood Count 12.93 K/uL (4.8-10.8)
[2021-02-25 07:56] LABS: Albumin Level 3.8 gm/dl (3.4-5.0); BUN Creatinine Ratio 14.7 (10-20); Calcium 9.1 mg/dl (8.5-10.1); Creatinine Clr Calc Pharmacy 112.2 ml/min; Est GFR (Non-African American) 106.1 ml/min; Potassium 3.9 mmol/L (3.5-5.1)
[2021-02-25 07:59] LABS: Albumin Globulin Ratio 0.8 (0.9-2); Bilirubin,Total 0.4 mg/dl (0.2-1); Globulin 4.8 gm/dl (2.5-4.0); Total Protein 8.6 gm/dl (6.4-8.2)
[2021-02-25] MEDS: METOPROLOL SUCC 50MG EXT REL TAB PO SCH ×2 (08:45→22:10)
[2021-02-25] MEDS: ASCORBIC ACID 500 MG TAB PO SCH (08:45)
[2021-02-25] MEDS: MULTIVITAMIN TAB PO SCH (08:45)
[2021-02-25] MEDS: CHOLECALCIFEROL 1,000 UNITS 25 MCG TAB PO SCH (08:45)
[2021-02-25] MEDS: PANTOprazole 40 MG TAB PO SCH (08:46)
[2021-02-25] MEDS: SUCRALFATE 1 GM TAB PO SCH ×4 (08:46→22:07)
[2021-02-25] MEDS: DICLOFENAC SOD 1% GEL 100 GM TUBE EXT SCH ×4 (08:47→22:10)
--- NOTE | 2021-02-25 08:49 | Electrocardiogram Report ---
Test Reason : Blood Pressure : / mmHG Vent. Rate : 096 BPM Atrial Rate : 096 BPM P-R Int : 114 ms QRS Dur : 062 ms QT Int : 340 ms P-R-T Axes : 025 002 011 degrees QTc Int : 429 ms Poor data quality, interpretation may be adversely affected Normal sinus rhythm Nonspecific T wave abnormality Abnormal ECG When compared with ECG of 22-FEB-2021 16:16, No significant change was found Confirmed by Bryan Carolina ([id number]) on 02/25/2021 8:48:48 AM Referred By: REFERRED SELF Confirmed By:Bryan Carolina
[2021-02-25] MEDS: ONDANSETRON INJ 2 MG/ML 2 ML VIAL IV PRN ×2 (11:04→16:54)
[2021-02-25] MEDS: MECLIZINE 12.5 MG TAB PO PRN ×2 (13:09→22:08)
--- NOTE | 2021-02-25 14:35 | History & Physical Bridge Note ---
Date of Service February 25, 2021 History & Physical Bridge Note I have examined the patient, reviewed the History & Physical and in the interval since the performance of the History & Physical I have noted the following changes of clinical significance: spoke with nuc med, cannot do the HIDA scan today, will get it done tomorrow pt c/o dizziness, will try Meclizine
[2021-02-25] MEDS: FAMOTIDINE 20 MG TAB PO SCH (22:08)
[2021-02-26 07:29] LABS: Basophils # (auto) 0.06 K/uL (0-0.2); Basophils % (auto) 0.5 %; Eosinophils # (auto) 0.38 K/uL (0-0.5); Eosinophils % (auto) 2.9 %; Hematocrit (blood only) 40.4 % (37-47); Hemoglobin 12.7 g/dL (12.0-16.0); Immature Granulocytes # (auto) 0.08 K/uL (0.00-0.02); Immature Granulocytes % (auto) 0.6 %; Lymphocytes # (auto) 3.26 K/uL (1.2-3.4); Lymphocytes % (auto) 25.1 %; Mean Corpuscular Hemoglobin 26.3 pg (25-34); Mean Corpuscular Hgb Conc 31.4 g/dL (32-36); Mean Corpuscular Volume 83.8 fL (80-100); Mean Platelet Volume 10.2 fL (7.4-10.4); Monocytes # (auto) 1.05 K/uL (0.11-0.59); Monocytes % (auto) 8.1 %; Neutrophils # (auto) 8.15 K/uL (1.4-6.5); Neutrophils % (auto) 62.8 %; Platelet Count 369 K/uL (130-400); RDW Coefficient of Variation 17.2 % (11.5-14.5); RDW Standard Deviation 50.6 fL (36.4-46.3); Red Blood Count 4.82 M/uL (4.2-5.4); White Blood Count 12.98 K/uL (4.8-10.8)
[2021-02-26 07:52] LABS: Albumin Level 3.3 gm/dl (3.4-5.0); BUN Creatinine Ratio 18.6 (10-20); Calcium 8.6 mg/dl (8.5-10.1); Creatinine Clr Calc Pharmacy 102.7 ml/min; Est GFR (African American) 119.1 ml/min; Est GFR (Non-African American) 102.8 ml/min; Magnesium 2.1 mg/dl (1.8-2.4); Potassium 3.7 mmol/L (3.5-5.1)
[2021-02-26 07:54] LABS: Albumin Globulin Ratio 0.7 (0.9-2); Bilirubin,Total 0.4 mg/dl (0.2-1); Globulin 4.4 gm/dl (2.5-4.0); Total Protein 7.7 gm/dl (6.4-8.2)
[2021-02-26] MEDS: DICLOFENAC SOD 1% GEL 100 GM TUBE EXT SCH ×2 (09:25→15:10)
[2021-02-26 11:40] VITALS: TEMP 99.1; O2SAT 99
[2021-02-26] MEDS ORDERED: SINCALIDE 1.6 MCG in 0.9 % SODIUM CHLORIDE 100 ML IV SCH (13:00)
--- NOTE | 2021-02-26 14:45 | Nuclear Medicine Report ---
NM hepatobiliary EF CLINICAL HISTORY: N/V, abdominal pain, diarrhea COMPARISON STUDY: CT of the abdomen and pelvis July 06, 2009. TECHNIQUE: 5.4 uCi of technetium 99m Choletec was injected IV at 12:30 PM on February 26, 2021. Following injection, imaging of the abdomen was carried out in the anterior projection for 60 minutes. At this time, 1.6 mcg of sincalide was injected IV as per protocol and imaging was carried out for an additi onal 50 minutes to estimate gallbladder ejection fraction. FINDINGS: Hepatic uptake of radiotracer is prompt and homogeneous. Activity is identified within the common bile duct and small bowel at 10 minutes. Gallbladder activity is noted at 15 minutes. Followin g injection of sincalide, there was normal gallbladder emptying with an ejection fraction of 84%. Nor mal is greater than 30-35%. IMPRESSION: 1. Normal hepatobiliary scan. No evidence for acute or chronic cholecystitis. 2. Normal gallbladder ejection fraction of 84%. ACT 112: Negative or not required by law. Electronically signed by: José Miguel Wallace M.D. 02/26/2021 2:44 PM
[2021-02-26] MEDS: PANTOprazole 40 MG TAB PO SCH (15:09)
[2021-02-26] MEDS: FAMOTIDINE 20 MG TAB PO SCH (15:09)
[2021-02-26] MEDS: SUCRALFATE 1 GM TAB PO SCH ×2 (15:10)
[2021-02-26] MEDS: METOPROLOL SUCC 50MG EXT REL TAB PO SCH (15:10)
[2021-02-26] MEDS: ASCORBIC ACID 500 MG TAB PO SCH (15:11)
[2021-02-26] MEDS: CHOLECALCIFEROL 1,000 UNITS 25 MCG TAB PO SCH (15:11)
[2021-02-26] MEDS: MULTIVITAMIN TAB PO SCH (15:11)
--- NOTE | 2021-02-26 15:19 | Discharge Summary ---
Date of Service February 26, 2021 Admission HPI Per Admitting Provider The patient is a 51-year-old female with a past medical history including abnormal LFTs, dizziness, palpitations, exertional dyspnea, proteinuria, dysfunctional uterine bleeding, myelopathy, ilioinguinal neuralgia of left side, hyperlipidemia, migraine, TMJ, GERD, IBS, hiatal hernia, and PCOS. Her main concern today is that regarding epigastric discomfort and recently abnormal LFTs, and a discussion with her outpatient physician about possibly getting a HIDA scan which is scheduled for 2 weeks. Principal Diagnosis RUQ pain Vertigo Discharge Exam Constitutional WD/WN, vitals as above + obese Neck trachea midline, no thyromegaly Respiratory normal respiratory effort, lungs clear to auscultation Cardiovascular RRR, no murmur, no edema Gastrointestinal (Abdomen) normal bowel sounds, soft, nontender, no hepatosplenomegaly Musculoskeletal no cyanosis or clubbing, extremities motor strength 5/5 Skin no rashes, warm and dry Discharge Data Allergies Allergy/AdvReac Type Severity Reaction Status Date / Time erythromycin base Allergy Intermediate VOMITTING Verified 02/24/21 22:55 lamotrigine [From Lamictal] Allergy Mild Rash Verified 02/24/21 22:55 Penicillins Allergy Mild Rash Verified 02/24/21 22:55 nitrofurantoin Allergy hives Verified 02/24/21 22:55 [From Macrobid] Consultations 02/24/21 21:59 ED Decision to Admit Stat Hospital Course (1) Right upper quadrant abdominal pain: Right upper quadrant abdominal pain/previously abnormal LFTs- She reports having had a normal ultrasound at another facility LFT normal here, WBC slightly high at 12k but PMN 65% HIDA: normal filling time, normal EF suspect pain is muscular, more pain over ribs follow up with PCP (2) Abnormal LFTs: normal (3) GERD (gastroesophageal reflux disease): Famotidine IV as noted above (4) Migraine: Continue with usual migraine treatments (5) Palpitations: (6) Vertigo: good response to Meclizine give 12.5mg q8 PRN Total Time Total Time Spent Total Time Spent (In Minutes): 20 Discharge Plan Discharge Items Patient Disposition: Home - Self-Care Reason For Visit: DIZZYNESS, BLURRED VISION, NAUSEA, DIARRHEA Discharge Diagnosis: Epigastric pain Vertigo Condition on Discharge: Good Goals: follow up with PCP about pain Activity: Resume your previous activity Driving/Machine Use: No limitations Weightbearing: Full weightbearing Non-emergency contact: Primary Care Provider Call non-emergency contact if: you have any medication questions Follow-up/Referrals: Sarmad Ashley DO [Primary Care Provider] - (one week) Diet: Regular Addtl Attending Provider Instructions: Medications: - MECLIZINE: 12.5mg every 8 hours as needed for dizziness RUQ pain, prior elevation in liver enzymes HIDA scan is completely normal normal liver enzymes here pain seems to be on ribs follow up with PCP Pending Studies at Discharge: No Stand-Alone Forms: My [facility] [employer], Smoking Cessation Medications and DC Order Prescriptions: New meclizine 12.5 mg Tablet 12.5 mg PO Q8 PRN (Reason: dizziness) 10 Days Qty: 30 RF: 0 Continued diclofenac sodium [Voltaren] 1 % gel 2 g topical QID RF: 0 cholecalciferol (vitamin D3) 50 mcg (2,000 unit) capsule 50 mcg PO QAM RF: 0 sucralfate 1 gram tablet 1 g PO QID RF: 0 metoprolol succinate 50 mg tablet extended release 24 hr 50 mg PO BID RF: 0 meloxicam 7.5 mg tablet 7.5 mg PO DAILY PRN (Reason: Pain) RF: 0 multivitamin Tablet 1 tab PO QAM RF: 0 sumatriptan succinate [Imitrex] 100 mg Tablet 1 tab PO UD PRN (Reason: Migraine Headache) RF: 0 rizatriptan [Maxalt] 10 mg Tablet 1 tab PO UD PRN (Reason: Migraine Headache) RF: 0 dicyclomine 10 mg Capsule 10 mg PO TID PRN (Reason: NEEDED) RF: 0 omeprazole 40 mg capsule,delayed release(DR/EC) 40 mg PO QAM RF: 0 acetaminophen [Tylenol Extra Strength] 500 mg Tablet 1,000 mg PO QID PRN (Reason: Pain) RF: 0 ascorbic acid (vitamin C) [Vitamin C] 500 mg Tablet 500 mg PO QAM RF: 0 ibuprofen [Advil] 200 mg Tablet 400 mg PO Q6H PRN (Reason: Pain) RF: 0 Advil PM 200-38 mg Tablet 1 cap PO HS PRN (Reason: Sleep) RF: 0 Discharge Orders: Discharge Order (Routine); Ordered 02/26/21 Ordered By: Mark Hamilton Admission Data Admit Date/Time: 02/25/21 01:45 Attending Provider: Mark Hamilton Admit Provider: Kar Aceves Primary Care Provider: Sarmad Ashley Other Providers: Kar Aceves Other Interventions: Discharge Summary Assessment (RN) Last Done: 02/26/21 15:51 Coding Level of Care Code 88552 OBS Care - Discharge Diagnoses Right upper quadrant abdominal pain R10.11 Abnormal LFTs R94.5 GERD (gastroesophageal reflux disease) K21.9 Migraine G43.909 Palpitations R00.2 Vertigo R42
[2021-02-26 15:53] VITALS: BP 99/69
[2021-02-26 16:02] VITALS: PULSE 76
== END 2021-02-26 16:12 | disposition home or self-care (01) ==
LOC: 2S 18:25 → ED 18:25 → SUATTDRO 02-25 01:45 → 2S 02-25 02:41 → 2E 02-25 03:39

== ENCOUNTER 2021-10-29 14:57 | Inpatient (IN) ==
[2021-10-29] MEDS ORDERED: ONDANSETRON INJ 2 MG/ML 2 ML VIAL IV STA (15:18)
[2021-10-29] MEDS ORDERED: SODIUM CHLORIDE 0.9% 500 ML IV STA (15:18)
[2021-10-29] MEDS ORDERED: MoRPHine SULFATE 4 MG/ML 1 ML CARP\\VIAL IV STA (15:18)
[2021-10-29] MEDS ORDERED: KETOROLAC TROMETHAMINE 15 MG/ML VIAL IV STA (15:18)
--- NOTE | 2021-10-29 15:23 | Emergency Department Note ---
Impression & Plan Kidney stone on right side, Nausea & vomiting ED Provider Note Provider: Antonio Hicks MD DATE OF SERVICE: 10/29/2021 CHIEF COMPLAINT: Right flank pain HISTORY OF PRESENT ILLNESS: Patient is a 51-year-old female past medical history of fibromyalgia grains, GERD, IBS, kidney stones presenting here today complaining of significant worsened right flank and right low back pain developing overnight. She was seen here on the and diagnosed with a small right-sided kidney stone. Did see urology outpatient setting. Has been using some [id number]'s at home as well as Zofran, Flomax, oxycodone. Yesterday she states she was actually feeling fairly good and thought things would move along. Does report she had a little bit of spotting a few days earlier than normal I significant cramping. Patient [place] any radiation of pain down the legs or the left side of the abdomen or to the chest. States this afternoon even taking home medications she did start vomiting and felt so much worse and thus came here. No trauma reported or syncope. REVIEW OF SYSTEMS: A total of 10 review of systems was obtained and negative except as stated above in the HPI. PAST MEDICAL HISTORY: As noted above MEDICATIONS: Reviewed home medication list SOCIAL HISTORY: , lives at home PHYSICAL EXAM: GENERAL: alert and oriented seated on the stretcher appears somewhat uncomfortable and fatigued Head: normocephalic and atraumatic EYES: No injection, discharge or icterus. NECK: Trachea midline. LUNGS: Airway patent. No retractions. Breath sounds clear HEART: Regular rate and rhythm. No chest wall tenderness ABDOMEN: Soft and non-tender, without guarding or rebound. BACK: Minimal right flank and lower back tenderness. No midline tenderness. SKIN: Acyanotic, warm, dry, without rashes EXTREMITIES: Without swelling, tenderness or deformity NEUROLOGICAL: No focal deficits. No aphasia. No facial droop or slurred speech. Ambulatory. EK beats. Normal sinus rhythm. No PVC or PAC. No acute ST segment elevation or depression with inferior T wave changes. QTc 431. CONTINUOUS CARDIAC MONITORING: was ordered and showed a heart rate of 60s-90s bpm in normal sinus rhythm Patient's laboratory studies and imaging reviewed. Differential includes Renal colic, UTI, appendicitis, diverticulitis, mesenteric ischemia, aortic pathology, infections, inflammatory bowel disease, PUD, biliary pathology, as well as other pathologies. IMPRESSION/MEDICAL DECISION MAKING: Patient with recent kidney stone but improvement of symptoms. Has seen urology. Still significant symptoms with the stone. Now reports significant worsening pain as well as nausea and vomiting. Given some additional Zofran and pain medicine Toradol here. Stable slight leukocytosis. No evidence of significant renal dysfunction. No concerning findings for acute hepatitis or pancreatitis. Negative . Lower suspicion is gynecological. CT made given the worsening of her symptoms to make sure no further stones have changed. CT report indicates continued 3 mm calculus with slightly increased swelling and perinephric stranding of the kidney. Trial some Zofran or Reglan to help with nausea symptoms. Pain is being improved but had difficulty with his at home with oxycodone. EKG and troponin are reassuring and I doubt this is cardiac. Lower suspicion for pulmonary complications. UA appears significantly contaminated but some nitrates are present; do not feel she septic at this point and lower suspicion for infection. Patient afebrile here not hypotensive or tachycardic. Patient given Phenergan with her refractory nausea and had improvement with this. Oral trial was initiated with water and while it stayed down, little bit nauseous and having some slight increase of dull pain in the right flank. Renal function is a bit worse than previous although still within normal limits. Given IV fluid again. Discussed options of trial of therapy at home but she decision making given her significant fatigue and nausea and symptoms we feel further observation should be pursued. Hospitalist was contacted. DIAGNOSIS: Right-sided kidney stone, nausea and vomiting DISPOSITION: Hospitalist will evaluate Patient was agreeable with this plan. 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 Nausea and vomiting after administration of anesthetic agent S/P hemorrhoidectomy S/P wrist surgery RT WRIST SURGERY Family History Mother Suicide Depression Aunt Uterine cancer great aunt Father Dyslipidemia Heart disease Grandmother (Maternal) Kidney disease, Onset Age: 13 diagnosed with CKD as age 13 secondary to glomerulonephritis, at age 23 from renal failure and uremia Denies family history of Ovarian cancer Prostate cancer Breast cancer FH: pancreatic cancer Colorectal cancer Social History Smoking Status: Never smoker Second Hand Exposure: No; Hx Alcohol Use: No Hx Substance Use: No Preferred Language: Arabic Communication Ability: Effective Visual Impairment: No Limitations Hearing Ability: Normal Promos Executive Producer Required: No Beliefs That Will Affect Care: None Current Living Situation: Spouse current occupational status: employed 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 Feels Safe at Home: Yes Assistive Devices: Glasses Allergies Allergies Allergy/AdvReac Type Severity Reaction Status Date / Time erythromycin base Allergy Intermediate VOMITTING Verified 10/29/21 15:37 lamotrigine [From Lamictal] Allergy Intermediate Rash Verified 10/29/21 15:37 nitrofurantoin Allergy Intermediate hives Verified 10/29/21 15:37 [From Macrobid] Home Meds Home Medications Medication Instructions Recorded Confirmed dicyclomine 10 mg capsule 10 mg PO TID PRN 07/17/18 10/29/21 multivitamin 1 tab PO QAM 07/17/18 10/29/21 rizatriptan 10 mg tablet (Maxalt) 1 tab PO UD PRN 07/17/18 10/29/21 sumatriptan succinate 100 mg 1 tab PO UD PRN 07/17/18 10/29/21 tablet (Imitrex) omeprazole 40 mg capsule,delayed 40 mg PO QAM cap 04/03/19 10/29/21 release meloxicam 7.5 mg tablet 7.5 mg PO DAILY PRN 11/05/20 10/29/21 metoprolol succinate 50 mg 50 mg PO HS 11/05/20 10/29/21 tablet,extended release 24 hr sucralfate 1 gram tablet 1 g PO QID tab 01/26/21 10/29/21 cholecalciferol (vitamin D3) 50 50 mcg PO QAM 02/01/21 10/29/21 mcg (2,000 unit) capsule acetaminophen 500 mg tablet 1,000 mg PO QID PRN 02/22/21 10/29/21 (Tylenol Extra Strength) ascorbic acid (vitamin C) 500 mg 500 mg PO QAM 02/22/21 10/29/21 tablet (Vitamin C) ibuprofen 200 mg tablet (Advil) 400 mg PO Q6H PRN 02/22/21 10/29/21 ibuprofen-diphenhydramine citrate 1 cap PO HS PRN 02/22/21 10/29/21 200 mg-38 mg tablet (Advil PM) atorvastatin 40 mg tablet (Lipitor) 40 mg PO DAILY 03/12/21 10/29/21 diclofenac sodium 1 % topical gel 2 g TOPICAL QID PRN 04/06/21 10/29/21 oxycodone 5 mg tablet 5 mg PO Q6H PRN 10/29/21 10/29/21 Previous Rx's Medication Instructions Recorded ondansetron 4 mg disintegrating 4 mg PO Q6H PRN #12 tab 10/21/21 tablet tamsulosin 0.4 mg capsule (Flomax) 0.4 mg PO DAILY #7 cap 10/21/21 Results & Data (ED) Vital Signs Vital Signs - 24 hr 10/29/21 15:02 10/29/21 15:30 10/29/21 15:34 Temperature 36.3 C L Temperature Source Temporal Artery Scan Pulse Rate 94 H 83 Pulse Rate [Right Finger] 86 Pulse Rhythm Regular Regular Pulse Rhythm [Right Finger] Pulse Strength Normal Respiratory Rate 20 16 24 Respiratory Effort / Characteristics Non-Labored Spontaneous Non-Labored Respiratory Depth Normal Normal Respiratory Pattern Regular Blood Pressure 148/86 H Blood Pressure [Right Arm] 120/85 Blood Pressure Mean 106 Blood Pressure Mean [Right Arm] 96 Blood Pressure Position Sitting Blood Pressure Position [Right Arm] Pulse Oximetry 96 100 95 Oxygen Delivery Method Room Air Room Air Room Air Sepsis Recent Fever Within 48 Hours No Sepsis New/Unexplained Change in Mental Status No Sepsis Action Taken by Nursing No Action Required 10/29/21 16:30 10/29/21 19:29 Temperature 36.2 C L Temperature Source Oral Pulse Rate Pulse Rate [Right Finger] 69 73 Pulse Rhythm Pulse Rhythm [Right Finger] Regular Pulse Strength Respiratory Rate 23 18 Respiratory Effort / Characteristics Non-Labored Respiratory Depth Normal Respiratory Pattern Regular Blood Pressure Blood Pressure [Right Arm] 149/97 H 156/76 H Blood Pressure Mean Blood Pressure Mean [Right Arm] 114 102 Blood Pressure Position Blood Pressure Position [Right Arm] Lying Sitting Pulse Oximetry 96 98 Oxygen Delivery Method Room Air Sepsis Recent Fever Within 48 Hours Sepsis New/Unexplained Change in Mental Status Sepsis Action Taken by Nursing Laboratory Data Result diagrams: 10/29/21 15:33 10/29/21 15:33 Lab Results 10/29/21 10/29/21 10/29/21 Range/Units 15:33 15:33 15:33 WBC 13.14 H (4.8-10.8) K/uL RBC 4.68 (4.2-5.4) M/uL Hgb 13.8 (12.0-16.0) g/dL Hct 40.5 (37-47) % MCV 86.5 (80-100) fL MCH 29.5 (25-34) pg MCHC 34.1 (32-36) g/dL RDW Std Deviation 42.2 (36.4-46.3) fL RDW Coeff of Alba 13.3 (11.5-14.5) % Plt Count 318 (130-400) K/uL MPV 10.3 (7.4-10.4) fL Immature Gran % (Auto) 0.2 % Neut % (Auto) 76.3 % Lymph % (Auto) 10.7 % [place] % (Auto) 9.8 % Eos % (Auto) 2.6 % Baso % (Auto) 0.4 % Neut # (Auto) 10.03 H (1.4-6.5) K/uL Lymph # (Auto) 1.40 (1.2-3.4) K/uL [place] # (Auto) 1.29 H (0.11-0.59) K/uL Eos # (Auto) 0.34 (0-0.5) K/uL Baso # (Auto) 0.05 (0-0.2) K/uL Immature Gran # (Auto) 0.03 H (0.00-0.02) K/uL Sodium 133 L (136-145) mmol/L Potassium 3.8 (3.5-5.1) mmol/L Chloride 100 (98-107) mmol/L Carbon Dioxide 25 (21-32) mmol/L Anion Gap 8 (3-11) BUN 12 (6-23) mg/dl Creatinine 1.03 (0.6-1.2) mg/dl Est Cr Clr Drug Dosing 64.4 ml/min Est GFR ( Amer) 72.9 ml/min Est GFR (Non-Af Amer) 62.9 ml/min BUN/Creatinine Ratio 11.7 (10-20) Glucose 136 H (70-99(Fasting)) mg/dl Calcium 8.8 (8.5-10.1) mg/dl Total Bilirubin 0.4 (0.2-1.0) mg/dl AST 26 (13-39) U/L ALT 39 (7-52) U/L Alkaline Phosphatase 79 (34-104) U/L Troponin I < 0.03 (0-0.04) ng/ml Total Protein 7.4 (6.0-8.3) gm/dl Albumin 4.1 (3.4-5.0) gm/dl Globulin 3.3 (2.5-4.0) gm/dl Albumin/Globulin Ratio 1.2 (0.9-2) Lipase 27 (11-82) U/L HCG, Qual Negative (Negative) Urine Color Urine Appearance (Clear) Urine pH (4.5-7.5) Ur Specific [place] (1.000-1.030) Urine Protein (Negative) Urine Glucose (UA) (Negative) Urine Ketones (Negative) Urine Blood (Negative) Urine Nitrite (Negative) Urine Bilirubin (Negative) Urine Urobilinogen (Negative) Ur Leukocyte Esterase (Negative) Urine WBC (Auto) (0-5) /hpf Urine RBC (Auto) (0-4) /hpf U Hyaline Cast (Auto) (0-5) /lpf U Epithel Cells (Auto) (0-5) /lpf Urine Bacteria (Auto) (Negative) SARS-CoV-2, RNA, NAAT (NEGATIVE) 10/29/21 10/29/21 Range/Units 17:05 19:40 WBC (4.8-10.8) K/uL RBC (4.2-5.4) M/uL Hgb (12.0-16.0) g/dL Hct (37-47) % MCV (80-100) fL MCH (25-34) pg MCHC (32-36) g/dL RDW Std Deviation (36.4-46.3) fL RDW Coeff of Alba (11.5-14.5) % Plt Count (130-400) K/uL MPV (7.4-10.4) fL Immature Gran % (Auto) % Neut % (Auto) % Lymph % (Auto) % [place] % (Auto) % Eos % (Auto) % Baso % (Auto) % Neut # (Auto) (1.4-6.5) K/uL Lymph # (Auto) (1.2-3.4) K/uL [place] # (Auto) (0.11-0.59) K/uL Eos # (Auto) (0-0.5) K/uL Baso # (Auto) (0-0.2) K/uL Immature Gran # (Auto) (0.00-0.02) K/uL Sodium (136-145) mmol/L Potassium (3.5-5.1) mmol/L Chloride (98-107) mmol/L Carbon Dioxide (21-32) mmol/L Anion Gap (3-11) BUN (6-23) mg/dl Creatinine (0.6-1.2) mg/dl Est Cr Clr Drug Dosing ml/min Est GFR ( Amer) ml/min Est GFR (Non-Af Amer) ml/min BUN/Creatinine Ratio (10-20) Glucose (70-99(Fasting)) mg/dl Calcium (8.5-10.1) mg/dl Total Bilirubin (0.2-1.0) mg/dl AST (13-39) U/L ALT (7-52) U/L Alkaline Phosphatase (34-104) U/L Troponin I (0-0.04) ng/ml Total Protein (6.0-8.3) gm/dl Albumin (3.4-5.0) gm/dl Globulin (2.5-4.0) gm/dl Albumin/Globulin Ratio (0.9-2) Lipase (11-82) U/L HCG, Qual (Negative) Urine Color Dark Yellow Urine Appearance Clear (Clear) Urine pH 8.0 H (4.5-7.5) Ur Specific [place] 1.011 (1.000-1.030) Urine Protein Negative (Negative) Urine Glucose (UA) Negative (Negative) Urine Ketones Negative (Negative) Urine Blood 3+ H (Negative) Urine Nitrite Positive A (Negative) Urine Bilirubin Negative (Negative) Urine Urobilinogen Negative (Negative) Ur Leukocyte Esterase Trace H (Negative) Urine WBC (Auto) 5-10 H (0-5) /hpf Urine RBC (Auto) >30 H (0-4) /hpf U Hyaline Cast (Auto) 1-5 (0-5) /lpf U Epithel Cells (Auto) >30 H (0-5) /lpf Urine Bacteria (Auto) Negative (Negative) SARS-CoV-2, RNA, NAAT NEGATIVE (NEGATIVE) Administered Medications Discontinued Medications Sodium Chloride (Nss) 500 mls @ 999 mls/hr IV .Q31M STA Stop: 10/29/21 15:48 Last Infusion: 10/29/21 16:06 Dose: 0 mls/hr Documented by: [id number] Admin: 10/29/21 15:35 Dose: 999 mls/hr Documented by: [id number] Promethazine HCl (Phenergan) 6.25 mg in 50.25 mls @ 201 mls/hr IV NOW STA Stop: 10/29/21 17:28 Last Infusion: 10/29/21 17:35 Dose: 0 mls/hr Documented by: [id number] Admin: 10/29/21 17:20 Dose: 201 mls/hr Documented by: [id number] Sodium Chloride (Nss 1000ml) 1,000 mls @ 999 mls/hr IV .Q1H1M ONE Stop: 10/29/21 20:23 Last Infusion: 10/29/21 20:44 Dose: 0 mls/hr Documented by: [id number] Admin: 10/29/21 19:43 Dose: 999 mls/hr Documented by: [id number] Ketorolac Tromethamine (Ketorolac Tromethamine 15 Mg/Ml Vial) 10 mg IV NOW STA Stop: 10/29/21 15:19 Last Admin: 10/29/21 15:36 Dose: 10 mg Documented by: [id number] Metoclopramide HCl (Metoclopramide Hcl Inj 5 Mg/Ml 2 Ml Vial) 10 mg IV NOW STA Stop: 10/29/21 16:35 Last Admin: 10/29/21 16:41 Dose: 10 mg Documented by: [id number] Morphine Sulfate (Morphine Sulfate 4 Mg/Ml 1 Ml Carp\Vial) 4 mg IV NOW STA Stop: 03/25/22 15:19 Last Admin: 10/29/21 15:38 Dose: 4 mg Documented by: [id number] Ondansetron HCl (Ondansetron Inj 2 Mg/Ml 2 Ml Vial) 4 mg IV NOW STA Stop: 10/29/21 15:19 Last Admin: 10/29/21 15:35 Dose: 4 mg Documented by: [id number] Imaging Data Radiologist's Impression: Abdomen/Pelvis CT 10/29/21 15:18 CT abd pelvis wo con CLINICAL HISTORY: right flank to low back pain, recent stone COMPARISON STUDY: 10/21/2021 CT DOSE: 949.21 mGycm TECHNIQUE: Standard CT of the Abdomen and Pelvis was performed without IV contrast. The patient did not receive oral contrast. A dose lowering technique was utilized adhering to the principles of ALARA. FINDINGS: Lung base: The lung bases are clear. Minimal chronic scarring is seen involving the right middle lobe. Abdominal cavity: There is no evidence for abdominal mass, adenopathy or ascites. Liver: The liver is homogeneous in attenuation on these limited noncontrast images.. Spleen: The spleen is homogeneous in attenuation on these limited noncontrast images. Pancreas: The pancreas is homogeneous in attenuation on these limited noncontrast images. Gall Bladder: The gallbladder is well distended with no evidence for cholelithiasis, wall thickening or pericholecystic edema.. Adrenal glands: The adrenal glands are normal in size and attenuation on these limited noncontrast images. Kidneys: Compared to previous examination, there is increased swelling and perinephric stranding present involving the right kidney with moderate hydronephrosis and hydroureter again seen to the level of the UVJ. 3 mm calculus is again seen at the UVJ producing the obstruction present. There is again no evidence for left renal calculus or hydronephrosis.. There is no evidence for gross renal mass, calculus or hydronephrosis bilaterally. Bowel: The bowel loops are normally placed within the abdomen and pelvis without evidence for dilatation or obstruction. There is no evidence for mass lesion. There are no inflammatory changes present. There is no evidence for free air. There is a normal appendix in the right lower quadrant. Bladder: There is no evidence for focal bladder wall thickening, calculus or diverticulum. : There is no evidence for pelvic mass or adenopathy. There is evidence for a 2.8 cm left ovarian cyst. Vasculature: There is no evidence for focal aneurysmal dilatation of the abdominal aorta. Osseous structures: There is no acute osseous pathology. IMPRESSION: 1. Compared to the previous examination, 3 mm calculus is again seen at the right UVJ with persistent moderate hydronephrosis and hydroureter on the right. There is increased swelling and perinephric stranding of the right kidney. 2. No other evidence for acute intra-abdominal or pelvic abnormality on these limited noncontrast images. 3. 2.8 cm left ovarian cyst. ACT 112: Negative or not required by law. Electronically signed by: Supa Velez M.D. 10/29/2021 4:32 PM Discharge Plan Visit Data Chief Complaint: Flank Pain Stated Complaint: SEVERE BACK PAIN, VOMITING ED Provider: Antonio Hicks Discharge Problem: Kidney stone on right side, Nausea & vomiting Patient Disposition: Being Evaluated by Hospitalist Forms Stand Alone Forms: [facility] Prescriptions Prescriptions: No Action cholecalciferol (vitamin D3) 50 mcg (2,000 unit) capsule 50 mcg PO QAM RF: 0 sucralfate 1 gram tablet 1 g PO QID RF: 0 metoprolol succinate 50 mg tablet extended release 24 hr 50 mg PO HS RF: 0 meloxicam 7.5 mg tablet 7.5 mg PO DAILY PRN (Reason: Pain) RF: 0 atorvastatin [Lipitor] 40 mg tablet 40 mg PO DAILY RF: 0 multivitamin Tablet 1 tab PO QAM RF: 0 sumatriptan succinate [Imitrex] 100 mg Tablet 1 tab PO UD PRN (Reason: Migraine Headache) RF: 0 rizatriptan [Maxalt] 10 mg Tablet 1 tab PO UD PRN (Reason: Migraine Headache) RF: 0 dicyclomine 10 mg Capsule 10 mg PO TID PRN (Reason: ABD PAIN) RF: 0 omeprazole 40 mg capsule,delayed release(DR/EC) 40 mg PO QAM RF: 0 acetaminophen [Tylenol Extra Strength] 500 mg Tablet 1,000 mg PO QID PRN (Reason: Pain) RF: 0 ascorbic acid (vitamin C) [Vitamin C] 500 mg Tablet 500 mg PO QAM RF: 0 ibuprofen [Advil] 200 mg Tablet 400 mg PO Q6H PRN (Reason: Pain) RF: 0 Advil PM 200-38 mg Tablet 1 cap PO HS PRN (Reason: Sleep) RF: 0 diclofenac sodium [Voltaren] 1 % Gel 2 g TOPICAL QID PRN (Reason: Pain) RF: 0 tamsulosin [Flomax] 0.4 mg capsule 0.4 mg PO DAILY Qty: 7 RF: 0 ondansetron 4 mg tablet,disintegrating 4 mg PO Q6H PRN (Reason: nausea and vomiting) Qty: 12 RF: 0 oxycodone 5 mg tablet 5 mg PO Q6H PRN (Reason: Pain) RF: 0 Referrals Referrals: Sarmad Ashley DO [Primary Care Provider] -
[2021-10-29 16:07] LABS: Basophils # (auto) 0.05 K/uL (0-0.2); Basophils % (auto) 0.4 %; Eosinophils # (auto) 0.34 K/uL (0-0.5); Eosinophils % (auto) 2.6 %; Hematocrit (blood only) 40.5 % (37-47); Hemoglobin 13.8 g/dL (12.0-16.0); Immature Granulocytes # (auto) 0.03 K/uL (0.00-0.02); Immature Granulocytes % (auto) 0.2 %; Lymphocytes % (auto) 10.7 %; Mean Corpuscular Hemoglobin 29.5 pg (25-34); Mean Corpuscular Hgb Conc 34.1 g/dL (32-36); Mean Corpuscular Volume 86.5 fL (80-100); Mean Platelet Volume 10.3 fL (7.4-10.4); Monocytes # (auto) 1.29 K/uL (0.11-0.59); Monocytes % (auto) 9.8 %; Neutrophils # (auto) 10.03 K/uL (1.4-6.5); Neutrophils % (auto) 76.3 %; Platelet Count 318 K/uL (130-400); RDW Coefficient of Variation 13.3 % (11.5-14.5); RDW Standard Deviation 42.2 fL (36.4-46.3); Red Blood Count 4.68 M/uL (4.2-5.4); White Blood Count 13.14 K/uL (4.8-10.8)
[2021-10-29 16:08] LABS: Alanine Aminotransferase 39 U/L (7-52); Albumin Globulin Ratio 1.2 (0.9-2); Albumin Level 4.1 gm/dl (3.4-5.0); Alkaline Phosphatase 79 U/L (34-104); Anion Gap 8 (3-11); Aspartate Aminotransferase 26 U/L (13-39); BUN Creatinine Ratio 11.7 (10-20); Bilirubin,Total 0.4 mg/dl (0.2-1.0); Blood Urea Nitrogen 12 mg/dl (6-23); Calcium 8.8 mg/dl (8.5-10.1); Carbon Dioxide 25 mmol/L (21-32); Chloride 100 mmol/L (98-107); Creatinine Clr Calc Pharmacy 64.4 ml/min; Est GFR (African American) 72.9 ml/min; Est GFR (Non-African American) 62.9 ml/min; Globulin 3.3 gm/dl (2.5-4.0); Glucose 136 mg/dl (70-99(Fasting)); Lipase 27 U/L (11-82); Potassium 3.8 mmol/L (3.5-5.1); Sodium 133 mmol/L (136-145); Total Protein 7.4 gm/dl (6.0-8.3)
[2021-10-29 16:09] LABS: Troponin I < 0.03 ng/ml (0-0.04)
[2021-10-29 16:10] LABS: Pregnancy Test, Serum Negative (Negative)
--- NOTE | 2021-10-29 16:33 | CT Scan Report ---
CT abd pelvis wo con CLINICAL HISTORY: right flank to low back pain, recent stone COMPARISON STUDY: 10/21/2021 CT DOSE: 949.21 mGycm TECHNIQUE: Standard CT of the Abdomen and Pelvis was performed without IV contrast. The patient did not receive oral contrast. A dose lowering technique was utilized adhering to the principles of CHIKA Pearson. FINDINGS: Lung base: The lung bases are clear. Minimal chronic scarring is seen involving the right middle lobe . Abdominal cavity: There is no evidence for abdominal mass, adenopathy or ascites. Liver: The liver is homogeneous in attenuation on these limited noncontrast images.. Spleen: The spleen is homogeneous in attenuation on these limited noncontrast images. Pancreas: The pancreas is homogeneous in attenuation on these limited noncontrast images. Gall Bladder: The gallbladder is well distended with no evidence for cholelithiasis, wall thickening or pericholecystic edema.. Adrenal glands: The adrenal glands are normal in size and attenuation on these limited noncontrast im ages. Kidneys: Compared to previous examination, there is increased swelling and perinephric stranding pres ent involving the right kidney with moderate hydronephrosis and hydroureter again seen to the level o f the UVJ. 3 mm calculus is again seen at the UVJ producing the obstruction present. There is again n o evidence for left renal calculus or hydronephrosis.. There is no evidence for gross renal mass, quyen culus or hydronephrosis bilaterally. Bowel: The bowel loops are normally placed within the abdomen and pelvis without evidence for dilatat ion or obstruction. There is no evidence for mass lesion. There are no inflammatory changes present. There is no evidence for free air. There is a normal appendix in the right lower quadrant. Bladder: There is no evidence for focal bladder wall thickening, calculus or diverticulum. : There is no evidence for pelvic mass or adenopathy. There is evidence for a 2.8 cm left ovarian c yst. Vasculature: There is no evidence for focal aneurysmal dilatation of the abdominal aorta. Osseous structures: There is no acute osseous pathology. IMPRESSION: 1. Compared to the previous examination, 3 mm calculus is again seen at the right UVJ with persistent moderate hydronephrosis and hydroureter on the right. There is increased swelling and perinephric st randing of the right kidney. 2. No other evidence for acute intra-abdominal or pelvic abnormality on these limited noncontrast huber ges. 3. 2.8 cm left ovarian cyst. ACT 112: Negative or not required by law. Electronically signed by: Supa Velez M.D. 10/29/2021 4:32 PM
[2021-10-29] MEDS ORDERED: METOCLOPRAMIDE HCL INJ 5 MG/ML 2 ML VIAL IV STA (16:34)
--- NOTE | 2021-10-29 16:34 | Electrocardiogram Report ---
Test Reason : Blood Pressure : / mmHG Vent. Rate : 079 BPM Atrial Rate : 079 BPM P-R Int : 122 ms QRS Dur : 072 ms QT Int : 376 ms P-R-T Axes : 038 -06 029 degrees QTc Int : 431 ms Poor data quality, interpretation may be adversely affected Normal sinus rhythm Low voltage QRS Poor R wave progression, consider anterior VA vs. lead placement vs. LVH Abnormal ECG Confirmed by Bishop Farias ([id number]) on 10/29/2021 4:34:24 PM Referred By: Confirmed By:Redd Farias
[2021-10-29] MEDS ORDERED: PROMETHAZINE 6.25 MG/50.25 ML BAG IV STA (17:14)
[2021-10-29 17:26] LABS: Appearance Urine Clear (Clear); Bacteria Urine Automated Negative (Negative); Bilirubin Urine Negative (Negative); Blood Urine 3+ (Negative); Color Urine Dark Yellow; Epithelial Cell Urine Auto >30 /lpf (0-5); Glucose Urine UA Negative (Negative); Ketones Urine Negative (Negative); Leukocyte Esterase Urine Trace (Negative); Nitrite Urine Positive (Negative); Protein Urine Negative (Negative); RBC Urine Automated >30 /hpf (0-4); Specific Gravity Urine 1.011 (1.000-1.030); Urobilinogen Urine Negative (Negative)
[2021-10-29] MEDS ORDERED: SODIUM CHLORIDE 0.9% 1000ML 1,000 ML IV ONE (19:23)
--- NOTE | 2021-10-29 20:19 | History & Physical Report ---
Date of Service October 29, 2021 Assessment & Plan (1) Kidney stone on right side: Plan: 51yo female with 3mm nephrolithiasis present at right UVJ initially diagnosed on 10/21/21. Patient has been managing conservatively at home with Flomax, Zofran and pain control. She had some initial relief but had worsening discomfort this AM which prompted her to return to the ER. On exam, she is uncomfortable but nontoxic Labs demonstrate a neutrophil predominant leukocytosis with WBC=13.14. Increase in Cr from 0.59 --> 1.03 UA now with 3+ blood, +Nitrite, trace LE, 5-10 WBC, >30 epi. Alkaline urine with pH 8 CT re-demonstrates 3mm calculus at right UVJ with persistent moderate right sided hydronephrosis and hydroureter. Also with increased swelling and perinephric stranding of the right kidney. -Admit to medical, keep NPO -Strain urine -IVF with LR at 125mL/hr -Continue Flomax -Zofran PRN nausea -Toradol PRN pain -Morphine PRN pain -Ceftriaxone 1gm IV daily - concern for increase in perinephric stranding, nitrites/LE on UA -Continue Vitamin C -Urology consultation appreciated. Will keep patient NPO after midnight in case of procedure (2) Fibromyalgia: Plan: Chronic. Patient reports worsening body pain of late. -Tylenol PRN -Diclofenac PRN -Heating pad PRN (3) GERD (gastroesophageal reflux disease): Plan: Chronic. Well controlled with medications -Pepcid 20mg daily -Continue Sucralfate (4) Hyperlipidemia: Plan: Chronic -Continue Atorvastatin 40mg po daily Plan: F/E/N - LR at 125mL/hr x 2 liters, electrolytes WNL - monitor Na, NPO for now Ppx - Low risk for DVT Code - Full per discussion with patient Dispo - Admission to medical History of Present Illness Chief Complaint: Right flank pain Primary Care Provider: DO Klaudia Stone Toño is a pleasant 51y female with history of GERD, HLP, Fibromya lgia presenting with right flank pain. Patient was initially seen in the ER on 10/21/21 with acute onset of right lower back pain with radiation into her RLQ with nausea and difficulty urinating. CT of the abdomen at that time showed a 3mm stone at the right UVJ with associated hyronephrosis. UA was unremarkable, renal function intact. She was treated with Flomax, Oxycodone, Zofran, Toradol and IVF. She was discharged home with Flomax 0.4mg daily, Zofran 4mg po q 6 hours PRN and Oxycodone 5mg po q 6 hours PRN. She was seen by Urology on 10/22/21. Given size and location of the stone it was discussed that she had a high probability of passing the stone. She was instructed to continue Tylenol, Ibuprofen, Pyridium, Flomax, Zofran and Oxycodone. She was to return to Urology in two weeks to assess for stone passage. Patient felt better for a short time. Did not pass any stone or fragments to her knowledge. She had recurrence of right flank pain/back pain and nausea this AM at 0200. She reports frequent urination and urgency sensation. Denies fever but has had some chills associated with pain. Otherwise, denies fever, chest pain, cough, SOB, abdominal pain, diarrhea. She started menstruating recently - atypical pattern, bleeding/spotting then stopping as well as 5 days earlier than expected. She reports regular menses. Review of Gynecology note from 11/05/20 - patient has dysuria symptoms occasionally near time of her period. Also had DUB in July 2020 - was to have a biopsy but was not performed. Has had kidney stones in the past. Cystopscopy performed years ago Allergies Allergy/AdvReac Type Severity Reaction Status Date / Time erythromycin base Allergy Intermediate VOMITTING Verified 10/29/21 15:37 lamotrigine [From Lamictal] Allergy Intermediate Rash Verified 10/29/21 15:37 nitrofurantoin Allergy Intermediate hives Verified 10/29/21 15:37 [From Macrobid] Home Medications Medication Instructions Recorded Confirmed Type dicyclomine 10 mg capsule 10 mg PO TID PRN 07/17/18 10/29/21 History multivitamin 1 tab PO QAM 07/17/18 10/29/21 History rizatriptan 10 mg tablet (Maxalt) 1 tab PO UD PRN 07/17/18 10/29/21 History sumatriptan succinate 100 mg 1 tab PO UD PRN 07/17/18 10/29/21 History tablet (Imitrex) omeprazole 40 mg capsule,delayed 40 mg PO QAM cap 04/03/19 10/29/21 History release meloxicam 7.5 mg tablet 7.5 mg PO DAILY PRN 11/05/20 10/29/21 History metoprolol succinate 50 mg 50 mg PO HS 11/05/20 10/29/21 History tablet,extended release 24 hr sucralfate 1 gram tablet 1 g PO QID tab 01/26/21 10/29/21 History cholecalciferol (vitamin D3) 50 50 mcg PO QAM 02/01/21 10/29/21 History mcg (2,000 unit) capsule acetaminophen 500 mg tablet 1,000 mg PO QID PRN 02/22/21 10/29/21 History (Tylenol Extra Strength) ascorbic acid (vitamin C) 500 mg 500 mg PO QAM 02/22/21 10/29/21 History tablet (Vitamin C) ibuprofen 200 mg tablet (Advil) 400 mg PO Q6H PRN 02/22/21 10/29/21 History ibuprofen-diphenhydramine citrate 1 cap PO HS PRN 02/22/21 10/29/21 History 200 mg-38 mg tablet (Advil PM) atorvastatin 40 mg tablet (Lipitor) 40 mg PO DAILY 03/12/21 10/29/21 History diclofenac sodium 1 % topical gel 2 g TOPICAL QID PRN 04/06/21 10/29/21 History ondansetron 4 mg disintegrating 4 mg PO Q6H PRN #12 tab 10/21/21 10/29/21 Rx tablet tamsulosin 0.4 mg capsule (Flomax) 0.4 mg PO DAILY #7 cap 10/21/21 10/29/21 Rx oxycodone 5 mg tablet 5 mg PO Q6H PRN 10/29/21 10/29/21 History Past Med/Surg History Medical History Abnormal LFTs 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 Nausea and vomiting after administration of anesthetic agent S/P hemorrhoidectomy S/P wrist surgery RT WRIST SURGERY Family History Mother Suicide Depression Aunt Uterine cancer great aunt Father Dyslipidemia Heart disease Grandmother (Maternal) Kidney disease, Onset Age: 13 diagnosed with CKD as age 13 secondary to glomerulonephritis, at age 23 from renal failure and uremia Denies family history of Ovarian cancer Prostate cancer Breast cancer FH: pancreatic cancer Colorectal cancer Social History Smoking Status: Never smoker Second Hand Exposure: No; Hx Alcohol Use: No Hx Substance Use: No Preferred Language: [place] Communication Ability: Effective Visual Impairment: No Limitations Hearing Ability: Normal Grave Digger Required: No Beliefs That Will Affect Care: None Current Living Situation: Spouse current occupational status: employed 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 Feels Safe at Home: Yes Assistive Devices: Glasses Review of Systems Review of Systems: All systems reviewed & are unremarkable except as noted in HPI & below Physical Exam Physical Exam: General: patient resting comfortably, NAD, non-toxic in appearance, AA&O x 4 Skin: warm, dry, intact, no rashes or lesions HEENT: NC/AT, PERRL, EOMI, anicteric sclera, conjunctiva without injection, external ear normal to inspection and nontender, nares patent, moist mucus memb ranes, dentition intact, no oropharyngeal lesions, neck supple, trachea midline, no LAD, no thyromegaly, no JVD Heart: +S1/S2, regular, no m/r/g Lungs: equal air entry bilaterally, no rales/rhonchi/wheezes Abd: +BS, soft, NT/ND, no masses/organomegaly/ascites, right CVA tenderness present Ext: warm, 2+ pulses in UE/LE bilaterally, no clubbing/cyanosis or edema Neuro: nonfocal, patient AA&O x 4, speech intact, no facial droop, moving all extremities on command with equal strength 5/5 Results & Data Results & Data ([place]) Vital Signs (Past 12 Hours) Vital Signs Temp Pulse Pulse Resp BP BP Pulse Ox 10/29/21 19:29 36.2 C L 73 18 156/76 H 98 10/29/21 16:30 69 23 149/97 H 96 10/29/21 15:34 86 24 120/85 95 10/29/21 15:30 83 16 100 10/29/21 15:02 36.3 C L 94 H 20 148/86 H 96 Laboratory Results Laboratory Results WBC 13.14 K/uL (4.8-10.8) H 10/29/21 15:33 RBC 4.68 M/uL (4.2-5.4) 10/29/21 15:33 Hgb 13.8 g/dL (12.0-16.0) 10/29/21 15:33 Hct 40.5 % (37-47) 10/29/21 15:33 MCV 86.5 fL (80-100) 10/29/21 15:33 MCH 29.5 pg (25-34) 10/29/21 15: MCHC 34.1 g/dL (32-36) 10/29/21 15:33 RDW Std Deviation 42.2 fL (36.4-46.3) 10/29/21 15:33 RDW Coeff of [place] 13.3 % (11.5-14.5) 10/29/21 15:33 Plt Count 318 K/uL (130-400) 10/29/21 15:33 MPV 10.3 fL (7.4-10.4) 10/29/21 15:33 Immature Gran % (Auto) 0.2 % 10/29/21 15:33 Neut % (Auto) 76.3 % 10/29/21 15:33 Lymph % (Auto) 10.7 % 10/29/21 15:33 [place] % (Auto) 9.8 % 10/29/21 15:33 Eos % (Auto) 2.6 % 10/29/21 15:33 Baso % (Auto) 0.4 % 10/29/21 15:33 Neut # (Auto) 10.03 K/uL (1.4-6.5) H 10/29/21 15:33 Lymph # (Auto) 1.40 K/uL (1.2-3.4) 10/29/21 15:33 [place] # (Auto) 1.29 K/uL (0.11-0.59) H 10/29/21 15:33 Eos # (Auto) 0.34 K/uL (0-0.5) 10/29/21 15:33 Baso # (Auto) 0.05 K/uL (0-0.2) 10/29/21 15:33 Immature Gran # (Auto) 0.03 K/uL (0.00-0.02) H 10/29/21 15:33 Sodium 133 mmol/L (136-145) L 10/29/21 15:33 Potassium 3.8 mmol/L (3.5-5.1) 10/29/21 15:33 Chloride 100 mmol/L (98-107) 10/29/21 15:33 Carbon Dioxide 25 mmol/L (21-32) 10/29/21 15:33 Anion Gap 8 (3-11) 10/29/21 15:33 BUN 12 mg/dl (6-23) 10/29/21 15:33 Creatinine 1.03 mg/dl (0.6-1.2) 10/29/21 15:33 Est Cr Clr Drug Dosing 64.4 ml/min 10/29/21 15:33 Est GFR ( Amer) 72.9 ml/min 10/29/21 15:33 Est GFR (Non-Af Amer) 62.9 ml/min 10/29/21 15:33 BUN/Creatinine Ratio 11.7 (10-20) 10/29/21 15:33 Glucose 136 mg/dl (70-99(Fasting)) H 10/29/21 15:33 Calcium 8.8 mg/dl (8.5-10.1) 10/29/21 15:33 Magnesium 1.8 mg/dl (1.7-2.4) 10/29/21 22:42 Total Bilirubin 0.4 mg/dl (0.2-1.0) 10/29/21 15:33 AST 26 U/L (13-39) 10/29/21 15:33 ALT 39 U/L (7-52) 10/29/21 15:33 Alkaline Phosphatase 79 U/L (34-104) 10/29/21 15:33 Troponin I < 0.03 ng/ml (0-0.04) 10/29/21 15:33 Total Protein 7.4 gm/dl (6.0-8.3) 10/29/21 15:33 Albumin 4.1 gm/dl (3.4-5.0) 10/29/21 15: Globulin 3.3 gm/dl (2.5-4.0) 10/29/21 15: Albumin/Globulin Ratio 1.2 (0.9-2) 10/29/21 15: Lipase 27 U/L (11-82) 10/29/21 15:33 HCG, Qual Negative (Negative) 10/29/21 15:33 Urine Color Dark Yellow 10/29/21 17:05 Urine Appearance Clear (Clear) 10/29/21 17: Urine pH 8.0 (4.5-7.5) H 10/29/21 17:05 Ur Specific [place] 1.011 (1.000-1.030) 10/29/21 17:05 Urine Protein Negative (Negative) 10/29/21 17:05 Urine Glucose (UA) Negative (Negative) 10/29/21 17:05 Urine Ketones Negative (Negative) 10/29/21 17:05 Urine Blood 3+ (Negative) H 10/29/21 17:05 Urine Nitrite Positive (Negative) A 10/29/21 17:05 Urine Bilirubin Negative (Negative) 10/29/21 17:05 Urine Urobilinogen Negative (Negative) 10/29/21 17:05 Ur Leukocyte Esterase Trace (Negative) H 10/29/21 17:05 Urine WBC (Auto) 5-10 /hpf (0-5) H 10/29/21 17:05 Urine RBC (Auto) >30 /hpf (0-4) H 10/29/21 17:05 U Hyaline Cast (Auto) 1-5 /lpf (0-5) 10/29/21 17:05 U Epithel Cells (Auto) >30 /lpf (0-5) H 10/29/21 17:05 Urine Bacteria (Auto) Negative (Negative) 10/29/21 17:05 SARS-CoV-2, RNA, NAAT NEGATIVE (NEGATIVE) 10/29/21 19:40 Impressions Abdomen/Pelvis CT 10/29/21 15:18 CT abd pelvis wo con CLINICAL HISTORY: right flank to low back pain, recent stone COMPARISON STUDY: 10/21/2021 CT DOSE: 949.21 mGycm TECHNIQUE: Standard CT of the Abdomen and Pelvis was performed without IV contrast. The patient did not receive oral contrast. A dose lowering technique was utilized adhering to the principles of ALARA. FINDINGS: Lung base: The lung bases are clear. Minimal chronic scarring is seen involving the right middle lobe. Abdominal cavity: There is no evidence for abdominal mass, adenopathy or ascites. Liver: The liver is homogeneous in attenuation on these limited noncontrast images.. Spleen: The spleen is homogeneous in attenuation on these limited noncontrast images. Pancreas: The pancreas is homogeneous in attenuation on these limited nonco ntrast images. Gall Bladder: The gallbladder is well distended with no evidence for cholelithiasis, wall thickening or pericholecystic edema.. Adrenal glands: The adrenal glands are normal in size and attenuation on these limited noncontrast images. Kidneys: Compared to previous examination, there is increased swelling and perinephric stranding present involving the right kidney with moderate hydronephrosis and hydroureter again seen to the level of the UVJ. 3 mm calculus is again seen at the UVJ producing the obstruction present. There is again no evidence for left renal calculus or hydronephrosis.. There is no evidence for gross renal mass, calculus or hydronephrosis bilaterally. Bowel: The bowel loops are normally placed within the abdomen and pelvis without evidence for dilatation or obstruction. There is no evidence for mass lesion. There are no inflammatory changes present. There is no evidence for free air. There is a normal appendix in the right lower quadrant. Bladder: There is no evidence for focal bladder wall thickening, calculus or diverticulum. : There is no evidence for pelvic mass or adenopathy. There is evidence for a 2.8 cm left ovarian cyst. Vasculature: There is no evidence for focal aneurysmal dilatation of the abdominal aorta. Osseous structures: There is no acute osseous pathology. IMPRESSION: 1. Compared to the previous examination, 3 mm calculus is again seen at the right UVJ with persistent moderate hydronephrosis and hydroureter on the right. There is increased swelling and perinephric stranding of the right kidney. 2. No other evidence for acute intra-abdominal or pelvic abnormality on these limited noncontrast images. 3. 2.8 cm left ovarian cyst. ACT 112: Negative or not required by law. Electronically signed by: Supa Velez M.D. 10/29/2021 4:32 PM Code Status & VTE Plan VTE Prophylaxis Plan VTE Prophylaxis will be ordered: Yes PG Care Time/CCT Total # of Minutes Spent Total Time Spent with Patient: Total time spent is greater than 50% in coordination of care (as documented) at patient's floor/unit and/or counseling patient: Coding Level of Care Code 92412 Initial Inpt Care Lvl 2 Diagnoses Kidney stone on right side N20.0 Fibromyalgia M79.7 GERD (gastroesophageal reflux disease) K21.9 Hyperlipidemia E78.5
[2021-10-29] MEDS ORDERED: DICLOFENAC SOD 1% GEL 100 GM TUBE EXT PRN (22:35)
[2021-10-29] MEDS ORDERED: ONDANSETRON INJ 2 MG/ML 2 ML VIAL IV PRN (22:35)
[2021-10-29] MEDS ORDERED: METOPROLOL SUCC 50MG EXT REL TAB PO SCH (22:35)
[2021-10-29] MEDS ORDERED: KETOROLAC TROMETHAMINE 15 MG/ML VIAL IV PRN (22:35)
[2021-10-29] MEDS ORDERED: ACETAMINOPHEN 500 MG TAB PO PRN (22:35)
[2021-10-30] MEDS ORDERED: DICYCLOMINE HCL 10 MG CAP PO PRN (00:18)
[2021-10-30] MEDS ORDERED: cefTRIAXone SODIUM 1,000 MG in DEXTROSE 5% 50 ML IV SCH (00:30)
--- NOTE | 2021-10-30 00:57 | Urology Consultation ---
Date of Consultation October 30, 2021 Assessment & Plan (1) Kidney stone on right side: Patient has been admitted on the hospitalist service. We recommend proceeding as follows: Provide analgesics Provide antiemetics Provide hydration with IV fluids Provide Flomax for expulsive therapy Strain all urine and save any kidney stones that are expelled Maintain patient on antibiotics the form of Rocephin that has already been started. Antibiotics can be tailored based on patient's clinical course as well as cultures as they are available Make the patient n.p.o. This way she will be ready in the event that cystoscopy will be required in the morning. If cystoscopy is not required her diet can be advanced. History of Present Illness Reason for Consultation: Nephrolithiasis Attending Physician: Chelsea Peres DO History of Present Illness 51 year old female came to [facility] ED due to right flank pain. She notes pain has been present x 1.5 weeks. She denies fevers, shakes, chills. She does note N/V. No dysuria or hematuria. She does not a hx. of kidney stone sin the past requiring cystoscopy. In the ED, A CT scan showed a 3mm stone at the Right UVJ with hydronephrosis. CBC showed WBC was 13k. Renal function was normal. UA showed trace leukocyte esterase and (+) for nitrite. 10-30 WBC per HPF noted. COVID test (-) At the time of my exam she was in bed, resting comfortably in no distress. Allergies Allergy/AdvReac Type Severity Reaction Status Date / Time erythromycin base Allergy Intermediate VOMITTING Verified 10/29/21 15:37 lamotrigine [From Lamictal] Allergy Intermediate Rash Verified 10/29/21 15:37 nitrofurantoin Allergy Intermediate hives Verified 10/29/21 15:37 [From Macrobid] Home Medications Medication Instructions Recorded Confirmed Type dicyclomine 10 mg capsule 10 mg PO TID PRN 07/17/18 10/29/21 History multivitamin 1 tab PO QAM 07/17/18 10/29/21 History rizatriptan 10 mg tablet (Maxalt) 1 tab PO UD PRN 07/17/18 10/29/21 History sumatriptan succinate 100 mg 1 tab PO UD PRN 07/17/18 10/29/21 History tablet (Imitrex) omeprazole 40 mg capsule,delayed 40 mg PO QAM cap 04/03/19 10/29/21 History release meloxicam 7.5 mg tablet 7.5 mg PO DAILY PRN 11/05/20 10/29/21 History metoprolol succinate 50 mg 50 mg PO HS 11/05/20 10/29/21 History tablet,extended release 24 hr sucralfate 1 gram tablet 1 g PO QID tab 01/26/21 10/29/21 History cholecalciferol (vitamin D3) 50 50 mcg PO QAM 02/01/21 10/29/21 History mcg (2,000 unit) capsule acetaminophen 500 mg tablet 1,000 mg PO QID PRN 02/22/21 10/29/21 History (Tylenol Extra Strength) ascorbic acid (vitamin C) 500 mg 500 mg PO QAM 02/22/21 10/29/21 History tablet (Vitamin C) ibuprofen 200 mg tablet (Advil) 400 mg PO Q6H PRN 02/22/21 10/29/21 History ibuprofen-diphenhydramine citrate 1 cap PO HS PRN 02/22/21 10/29/21 History 200 mg-38 mg tablet (Advil PM) atorvastatin 40 mg tablet (Lipitor) 40 mg PO DAILY 03/12/21 10/29/21 History diclofenac sodium 1 % topical gel 2 g TOPICAL QID PRN 04/06/21 10/29/21 History ondansetron 4 mg disintegrating 4 mg PO Q6H PRN #12 tab 10/21/21 10/29/21 Rx tablet tamsulosin 0.4 mg capsule (Flomax) 0.4 mg PO DAILY #7 cap 10/21/21 10/29/21 Rx oxycodone 5 mg tablet 5 mg PO Q6H PRN 10/29/21 10/29/21 History Patient History Medical History Abnormal LFTs 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 Nausea and vomiting after administration of anesthetic agent S/P hemorrhoidectomy S/P wrist surgery RT WRIST SURGERY Family History Mother Suicide Depression Aunt Uterine cancer great aunt Father Dyslipidemia Heart disease Grandmother (Maternal) Kidney disease, Onset Age: 13 diagnosed with CKD as age 13 secondary to glomerulonephritis, at age 23 from renal failure and uremia Denies family history of Ovarian cancer Prostate cancer Breast cancer FH: pancreatic cancer Colorectal cancer Social History Smoking Status: Never smoker Second Hand Exposure: No; Do You Dip or Chew Tobacco: No; Hx Alcohol Use: No Hx Substance Use: No Preferred Language: Kyrgyz Communication Ability: Effective Visual Impairment: No Limitations Hearing Ability: Normal Head Of [employer]etics Required: No Beliefs That Will Affect Care: None Current Living Situation: Spouse 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 occupational status: employed 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 Other Information That Helps Us Care for You: No Feels Safe at Home: Yes Safety Concerns: Feels Safe At This Time Assistive Devices: None Review of Systems Constitutional: no fever and no chills Eyes: no diplopia Ear, Nose, Mouth, Throat: no ear pain Respiratory: no cough and no dyspnea Cardiovascular: no chest pain Gastrointestinal: + nausea and + vomiting; no abdominal pain Genitourinary: + flank pain (right ); no dysuria Musculoskeletal: + back pain (right flank ) Integumentary: no rash Neurologic: no generalized weakness Physical Exam Constitutional: WD/WN, vitals as above Eyes: no conjunctival abnormality ENMT: Ears: no hearing impairment and no external ear abnormality Neck: trachea midline Respiratory: normal respiratory effort; no respiratory distress and no labored breathing Cardiovascular: Rate/Rhythm: regular rate and regular rhythm Gastrointestinal (Abdomen): soft, non-tender Musculoskeletal: no calf pain Skin: no rashes Neurologic: moves all extremities Psychiatric: A+Ox3, euthymic affect Results & Data ([facility]) Vital Signs (Past 12 Hours) Vital Signs Temp Pulse Pulse Resp BP BP Pulse Ox 10/29/21 20:17 36.5 C 95 H 18 169/85 H 94 10/29/21 19:29 36.2 C L 73 18 156/76 H 98 10/29/21 16:30 69 23 149/97 H 96 10/29/21 15:34 86 24 120/85 95 10/29/21 15:30 83 16 100 10/29/21 15:02 36.3 C L 94 H 20 148/86 H 96 PG Care Time/CCT Total # of Minutes Spent Total Time Spent with Patient: Total time spent is greater than 50% in coordination of care (as documented) at patient's floor/unit and/or counseling patient: Coding Level of Care Code 64128 Inpt Consult Level 5 Diagnoses Kidney stone on right side N20.0
[2021-10-30] MEDS: LACTATED RINGER'S 1,000 ML IV SCH ×3 (05:59→12:55)
[2021-10-30] MEDS: MoRPHine SULFATE 2 MG/ML CARP IV PRN ×2 (06:10→12:53)
[2021-10-30] MEDS: SUCRALFATE 1 GM TAB PO SCH ×4 (07:49→16:02)
--- NOTE | 2021-10-30 08:18 | Hospitalist Progress Note ---
Date of Service October 30, 2021 Assessment & Plan (1) Kidney stone on right side: Plan: 51yo female with 3mm nephrolithiasis present at right UVJ initially diagnosed on 10/21/21. Patient had been managing conservatively at home with Flomax, Zofran and pain control and had seen Urology as an outpatient in the last week and was to have followup in a week She had some initial relief but had worsening discomfort this AM which prompted her to return to the ER. On exam, she is uncomfortable but nontoxic Labs demonstrated a neutrophil predominant leukocytosis with WBC=13.14 on admission with increase in Cr from 0.59 --> 1.03 UA with 3+ blood, +Nitrite, trace LE, 5-10 WBC, >30 epi. Alkaline urine with pH 8 CT re-demonstrates 3mm calculus at right UVJ with persistent moderate right sided hydronephrosis and hydroureter. Also with increased swelling and perinephric stranding of the right kidney. Urology on consult, appreciate assistance Continue LR @ 125cc/hr NPO for possible intervention today Continue Ceftriaxone IV Daily given concern for increase in perinephric stranding, nitrites/LE on UA Monitor urine cx WBC trending down Cr improved 0.62 and back to baseline KUB pending to monitor for stone passing -- not observed, but denies passing stone Continue flomax, strain urine Pain control : toradol, morphine prn (would cautiously use toradol given Cr 0.59 on 10/21--> 1.03 however can continue given back to baseline) Zofran prn nausea cont Vit C Continue to monitor (2) Fibromyalgia: Plan: Chronic. Patient reports worsening body pain of late. -Tylenol, diclofenac prn, heating pad (3) GERD (gastroesophageal reflux disease): Plan: Chronic. Hx of Barrets. Only on PPI once daily [employer] Placed on pepcid while inpatient but will switch to protonix given hx barretts, continue carafate (4) Hyperlipidemia: Plan: Chronic -Continue Atorvastatin 40mg po daily (5) Palpitations: Plan: Hx of such, denies any at present. Also with HLD, and on atorvastatin 40mg daily Continue metoprolol 50mg daily Also has Hx IBS and utilizes bentyl prn, continued Plan: NPO for possible intervention with urology continued inpatient stay Admission and Anticipated Discharge Date Admission Date: October 29, 2021 Supervising Physician Co-Signing Physician Notes BRAYAN Supervision Note: I did not personally see or examine the patient today, but I verified all finn points of BRAYAN Morris's assessment and plan with the following exceptions/additions: It seems this patient could potentially be discharged later today if dong well post-op Subjective Patient evaluated this morning. States pain much improved. Just got a dose of morphine this morning. States still has low back/flank pain that radiates to groin but much improved. No further nausea or vomiting now that pain controlled. Remains NPO for possible cysto/stent. No fever, chills, chest pain, shortness of breath reported. Review of Systems Review of Systems: All systems reviewed & are unremarkable except as noted in HPI & below Physical Exam Physical Exam: General: WD/WN female resting comfortably in bed HEENT: head normocephalic, atraumatic, eyes anicteric, pupils equal, moist mm Resp: CTAB, diminished in the bases, no w/c/r, on room air CV: RRR, no m/r/g, no edema, pulses palpable GI: +BS throughout, soft, generalized discomfort reported but not overly tender to palpation, no guarding/rigidity : +R CVA tenderness Psych: AOx3, cooperative, calm Neuro: follows commands, no slurred speech , answering questions appropriately Results & Data Results & Data ([facility]) Vital Signs (Past 12 Hours) Vital Signs Temp Pulse Resp BP Pulse Ox 10/30/21 07:20 37 C 90 18 123/76 93 10/29/21 22:35 36.5 C 95 H 18 138/80 94 10/29/21 20:17 36.5 C 95 H 18 169/85 H 94 Laboratory Results 10/29/21 10/29/21 10/29/21 Range/Units 22:42 19:40 17:05 WBC (4.8-10.8) K/uL RBC (4.2-5.4) M/uL Hgb (12.0-16.0) g/dL Hct (37-47) % MCV (80-100) fL MCH (25-34) pg MCHC (32-36) g/dL RDW Std Deviation (36.4-46.3) fL RDW Coeff of [place]ba (11.5-14.5) % Plt Count (130-400) K/uL MPV (7.4-10.4) fL Immature Gran % (Auto) % Neut % (Auto) % Lymph % (Auto) % [place] % (Auto) % Eos % (Auto) % Baso % (Auto) % Neut # (Auto) (1.4-6.5) K/uL Lymph # (Auto) (1.2-3.4) K/uL [place] # (Auto) (0.11-0.59) K/uL Eos # (Auto) (0-0.5) K/uL Baso # (Auto) (0-0.2) K/uL Immature Gran # (Auto) (0.00-0.02) K/uL Sodium (136-145) mmol/L Potassium (3.5-5.1) mmol/L Chloride (98-107) mmol/L Carbon Dioxide (21-32) mmol/L Anion Gap (3-11) BUN (6-23) mg/dl Creatinine (0.6-1.2) mg/dl Est Cr Clr Drug Dosing ml/min Est GFR ( Amer) ml/min Est GFR (Non-Af Amer) ml/min BUN/Creatinine Ratio (10-20) Glucose (70-99(Fasting)) mg/dl Calcium (8.5-10.1) mg/dl Magnesium 1.8 (1.7-2.4) mg/dl Total Bilirubin (0.2-1.0) mg/dl AST (13-39) U/L ALT (7-52) U/L Alkaline Phosphatase (34-104) U/L Troponin I (0-0.04) ng/ml Total Protein (6.0-8.3) gm/dl Albumin (3.4-5.0) gm/dl Globulin (2.5-4.0) gm/dl Albumin/Globulin Ratio (0.9-2) Lipase (11-82) U/L HCG, Qual (Negative) Urine Color Dark Yellow Urine Appearance Clear (Clear) Urine pH 8.0 H (4.5-7.5) Ur Specific [place] 1.011 (1.000-1.030) Urine Protein Negative (Negative) Urine Glucose (UA) Negative (Negative) Urine Ketones Negative (Negative) Urine Blood 3+ H (Negative) Urine Nitrite Positive A (Negative) Urine Bilirubin Negative (Negative) Urine Urobilinogen Negative (Negative) Ur Leukocyte Esterase Trace H (Negative) Urine WBC (Auto) 5-10 H (0-5) /hpf Urine RBC (Auto) >30 H (0-4) /hpf U Hyaline Cast (Auto) 1-5 (0-5) /lpf U Epithel Cells (Auto) >30 H (0-5) /lpf Urine Bacteria (Auto) Negative (Negative) SARS-CoV-2, RNA, NAAT NEGATIVE (NEGATIVE) 10/29/21 10/29/21 10/29/21 Range/Units 15:33 15:33 15:33 WBC 13.14 H (4.8-10.8) K/uL RBC 4.68 (4.2-5.4) M/uL Hgb 13.8 (12.0-16.0) g/dL Hct 40.5 (37-47) % MCV 86.5 (80-100) fL MCH 29.5 (25-34) pg MCHC 34.1 (32-36) g/dL RDW Std Deviation 42.2 (36.4-46.3) fL RDW Coeff of [place] 13.3 (11.5-14.5) % Plt Count 318 (130-400) K/uL MPV 10.3 (7.4-10.4) fL Immature Gran % (Auto) 0.2 % Neut % (Auto) 76.3 % Lymph % (Auto) 10.7 % [place] % (Auto) 9.8 % Eos % (Auto) 2.6 % Baso % (Auto) 0.4 % Neut # (Auto) 10.03 H (1.4-6.5) K/uL Lymph # (Auto) 1.40 (1.2-3.4) K/uL [place] # (Auto) 1.29 H (0.11-0.59) K/uL Eos # (Auto) 0.34 (0-0.5) K/uL Baso # (Auto) 0.05 (0-0.2) K/uL Immature Gran # (Auto) 0.03 H (0.00-0.02) K/uL Sodium 133 L (136-145) mmol/L Potassium 3.8 (3.5-5.1) mmol/L Chloride 100 (98-107) mmol/L Carbon Dioxide 25 (21-32) mmol/L Anion Gap 8 (3-11) BUN 12 (6-23) mg/dl Creatinine 1.03 (0.6-1.2) mg/dl Est Cr Clr Drug Dosing 64.4 ml/min Est GFR ( Amer) 72.9 ml/min Est GFR (Non-Af Amer) 62.9 ml/min BUN/Creatinine Ratio 11.7 (10-20) Glucose 136 H (70-99(Fasting)) mg/dl Calcium 8.8 (8.5-10.1) mg/dl Magnesium (1.7-2.4) mg/dl Total Bilirubin 0.4 (0.2-1.0) mg/dl AST 26 (13-39) U/L ALT 39 (7-52) U/L Alkaline Phosphatase 79 (34-104) U/L Troponin I < 0.03 (0-0.04) ng/ml Total Protein 7.4 (6.0-8.3) gm/dl Albumin 4.1 (3.4-5.0) gm/dl Globulin 3.3 (2.5-4.0) gm/dl Albumin/Globulin Ratio 1.2 (0.9-2) Lipase 27 (11-82) U/L HCG, Qual Negative (Negative) Urine Color Urine Appearance (Clear) Urine pH (4.5-7.5) Ur Specific [place] (1.000-1.030) Urine Protein (Negative) Urine Glucose (UA) (Negative) Urine Ketones (Negative) Urine Blood (Negative) Urine Nitrite (Negative) Urine Bilirubin (Negative) Urine Urobilinogen (Negative) Ur Leukocyte Esterase (Negative) Urine WBC (Auto) (0-5) /hpf Urine RBC (Auto) (0-4) /hpf U Hyaline Cast (Auto) (0-5) /lpf U Epithel Cells (Auto) (0-5) /lpf Urine Bacteria (Auto) (Negative) SARS-CoV-2, RNA, NAAT (NEGATIVE) Diagnostic Findings Abdomen/Pelvis CT 10/29/21 15:18 CT abd pelvis wo con CLINICAL HISTORY: right flank to low back pain, recent stone COMPARISON STUDY: 10/21/2021 CT DOSE: 949.21 mGycm TECHNIQUE: Standard CT of the Abdomen and Pelvis was performed without IV contrast. The patient did not receive oral contrast. A dose lowering technique was utilized adhering to the principles of ALARA. FINDINGS: Lung base: The lung bases are clear. Minimal chronic scarring is seen involving the right middle lobe. Abdominal cavity: There is no evidence for abdominal mass, adenopathy or ascites. Liver: The liver is homogeneous in attenuation on these limited noncontrast images.. Spleen: The spleen is homogeneous in attenuation on these limited noncontrast images. Pancreas: The pancreas is homogeneous in attenuation on these limited noncontrast images. Gall Bladder: The gallbladder is well distended with no evidence for cholelithiasis, wall thickening or pericholecystic edema.. Adrenal glands: The adrenal glands are normal in size and attenuation on these limited noncontrast images. Kidneys: Compared to previous examination, there is increased swelling and perinephric stranding present involving the right kidney with moderate hydronephrosis and hydroureter again seen to the level of the UVJ. 3 mm calculus is again seen at the UVJ producing the obstruction present. There is again no evidence for left renal calculus or hydronephrosis.. There is no evidence for gross renal mass, calculus or hydronephrosis bilaterally. Bowel: The bowel loops are normally placed within the abdomen and pelvis without evidence for dilatation or obstruction. There is no evidence for mass lesion. There are no inflammatory changes present. There is no evidence for free air. There is a normal appendix in the right lower quadrant. Bladder: There is no evidence for focal bladder wall thickening, calculus or diverticulum. : There is no evidence for pelvic mass or adenopathy. There is evidence for a 2.8 cm left ovarian cyst. Vasculature: There is no evidence for focal aneurysmal dilatation of the abdominal aorta. Osseous structures: There is no acute osseous pathology. IMPRESSION: 1. Compared to the previous examination, 3 mm calculus is again seen at the right UVJ with persistent moderate hydronephrosis and hydroureter on the right. There is increased swelling and perinephric stranding of the right kidney. 2. No other evidence for acute intra-abdominal or pelvic abnormality on these limited noncontrast images. 3. 2.8 cm left ovarian cyst. ACT 112: Negative or not required by law. Electronically signed by: Supa Velez M.D. 10/29/2021 4:32 PM PG Care Time/CCT Total # of Minutes Spent Total Time Spent with Patient: Total time spent is greater than 50% in coordination of care (as documented) at patient's floor/unit and/or counseling patient: Coding Level of Care Code 98290 Subseq Hosp Care Lvl 2 Diagnoses Kidney stone on right side N20.0 Fibromyalgia M79.7 GERD (gastroesophageal reflux disease) K21.9 Hyperlipidemia E78.5 Palpitations R00.2
[2021-10-30 08:33] LABS: Basophils # (auto) 0.05 K/uL (0-0.2); Basophils % (auto) 0.5 %; Eosinophils # (auto) 0.28 K/uL (0-0.5); Eosinophils % (auto) 2.6 %; Hematocrit (blood only) 39.3 % (37-47); Hemoglobin 13.1 g/dL (12.0-16.0); Immature Granulocytes # (auto) 0.03 K/uL (0.00-0.02); Immature Granulocytes % (auto) 0.3 %; Lymphocytes % (auto) 23.9 %; Mean Corpuscular Hemoglobin 29.1 pg (25-34); Mean Corpuscular Hgb Conc 33.3 g/dL (32-36); Mean Corpuscular Volume 87.3 fL (80-100); Mean Platelet Volume 10.1 fL (7.4-10.4); Monocytes # (auto) 0.94 K/uL (0.11-0.59); Monocytes % (auto) 8.7 %; Neutrophils # (auto) 6.96 K/uL (1.4-6.5); Platelet Count 316 K/uL (130-400); RDW Coefficient of Variation 13.4 % (11.5-14.5); RDW Standard Deviation 43.3 fL (36.4-46.3); White Blood Count 10.86 K/uL (4.8-10.8)
[2021-10-30] MEDS ORDERED: FAMOTIDINE 20 MG TAB PO SCH (09:00)
[2021-10-30] MEDS ORDERED: ATORVASTATIN 40 MG TAB PO SCH (09:00)
[2021-10-30] MEDS ORDERED: ASCORBIC ACID 500 MG TAB PO SCH (09:00)
[2021-10-30] MEDS ORDERED: PANTOprazole 40 MG TAB PO SCH (09:00)
[2021-10-30] MEDS ORDERED: TAMSULOSIN HCL 0.4 MG CAP PO SCH (09:00)
[2021-10-30 09:02] LABS: BUN Creatinine Ratio 11.3 (10-20); Calcium 8.7 mg/dl (8.5-10.1); Creatinine Clr Calc Pharmacy 91.8 ml/min; Est GFR (Non-African American) 104.4 ml/min; Magnesium 1.9 mg/dl (1.7-2.4); Potassium 3.7 mmol/L (3.5-5.1)
--- NOTE | 2021-10-30 09:26 | XRay Report ---
XR KUB/Abdomen 1 view CLINICAL HISTORY: assess right kidney stone. COMPARISON STUDY: CT of the abdomen and pelvis from 10/29/2021 TECHNIQUE: Single view of the abdomen. FINDINGS: The bowel gas pattern is within normal limits without evidence for dilatation or obstruction. There i s no evidence for organomegaly or gross intra-abdominal mass. The 3 mm right UVJ calculus seen on CT cannot be identified radiographically. No abnormal calcifications are seen along the course of the ur inary tracts bilaterally. No acute osseous pathology. IMPRESSION: 1. No acute intra-abdominal abnormality. ACT 112: Negative or not required by law. Electronically signed by: Supa Velez M.D. 10/30/2021 9:24 AM
[2021-10-30] MEDS ORDERED: fentaNYL citrate 100 MCG/2 ML VIAL IV PRN (10:30)
[2021-10-30] MEDS ORDERED: ePHEDrine sulfate 50 MG/ML AMP IV PRN (10:30)
[2021-10-30] MEDS ORDERED: ONDANSETRON INJ 2 MG/ML 2 ML VIAL IV PRN (10:30)
[2021-10-30] MEDS ORDERED: ATROPINE SULFATE 0.1 MG/ML 10ML SYR IV PRN (10:30)
--- NOTE | 2021-10-30 10:30 | Anesthesiology Consultation ---
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 Surgery Operation Date: 10/30/21 10:25 Proposed Procedures p Cystoscopy - Guille Larson DO s Ureteral Stent Insertion/Removal - Guille Larson DO Height/Weight Height: 5 ft 1 in Weight: 63.7 kg Allergies Allergy/AdvReac Type Severity Reaction Status Date / Time erythromycin base Allergy Intermediate VOMITTING Verified 10/29/21 15:37 lamotrigine [From Lamictal] Allergy Intermediate Rash Verified 10/29/21 15:37 nitrofurantoin Allergy Intermediate hives Verified 10/29/21 15:37 [From Macrobid] Medications Home Medications Medication Instructions Recorded Confirmed Last Taken dicyclomine 10 mg capsule 10 mg PO TID PRN 07/17/18 10/29/21 Unknown multivitamin 1 tab PO QAM 07/17/18 10/29/21 10/29/21 rizatriptan 10 mg tablet (Maxalt) 1 tab PO UD PRN 07/17/18 10/29/21 Unknown sumatriptan succinate 100 mg 1 tab PO UD PRN 07/17/18 10/29/21 02/19/21 tablet (Imitrex) omeprazole 40 mg capsule,delayed 40 mg PO QAM cap 04/03/19 10/29/21 10/29/21 release meloxicam 7.5 mg tablet 7.5 mg PO DAILY PRN 11/05/20 10/29/21 02/19/21 metoprolol succinate 50 mg 50 mg PO HS 11/05/20 10/29/21 10/28/21 tablet,extended release 24 hr sucralfate 1 gram tablet 1 g PO QID tab 01/26/21 10/29/21 10/28/21 08:00 cholecalciferol (vitamin D3) 50 50 mcg PO QAM 02/01/21 10/29/21 10/29/21 mcg (2,000 unit) capsule acetaminophen 500 mg tablet 1,000 mg PO QID PRN 02/22/21 10/29/21 02/21/21 (Tylenol Extra Strength) 1000 mg ascorbic acid (vitamin C) 500 mg 500 mg PO QAM 02/22/21 10/29/21 10/29/21 tablet (Vitamin C) ibuprofen 200 mg tablet (Advil) 400 mg PO Q6H PRN 02/22/21 10/29/21 02/21/21 400 mg ibuprofen-diphenhydramine citrate 1 cap PO HS PRN 02/22/21 10/29/21 02/21/21 200 mg-38 mg tablet (Advil PM) 1 cap atorvastatin 40 mg tablet (Lipitor) 40 mg PO DAILY 03/12/21 10/29/21 10/29/21 diclofenac sodium 1 % topical gel 2 g TOPICAL QID PRN 04/06/21 10/29/21 Unknown ondansetron 4 mg disintegrating 4 mg PO Q6H PRN #12 tab 10/21/21 10/29/21 14:30 tablet tamsulosin 0.4 mg capsule (Flomax) 0.4 mg PO DAILY #7 cap 10/21/21 10/29/21 10/29/21 oxycodone 5 mg tablet 5 mg PO Q6H PRN 10/29/21 10/29/21 10/29/21 09:30 Active Medications Generic Name Dose Route Start Last Admin Trade Name Freq PRN Reason Stop Dose Admin Ascorbic Acid 500 mg 10/30/21 09:00 10/30/21 07:48 Ascorbic Acid 500 Mg Tab PO 11/29/21 08:59 Not Given QAM ZOILA Atorvastatin Calcium 40 mg 10/30/21 09:00 10/30/21 08:35 Atorvastatin 40 Mg Tab PO 11/29/21 08:59 40 mg DAILY ZOILA Administration Lactated Ringer's 1,000 mls @ 125 mls/hr 10/29/21 22:35 10/30/21 05:59 Lr IV 10/30/21 14:34 125 mls/hr .Q8H ZOILA Administration Ceftriaxone Sodium 1,000 mg/ 50 mls @ 100 mls/hr 10/30/21 00:30 10/30/21 04:09 Dextrose IV 11/04/21 00:29 Infused Q24H ZOILA Infusion Protocol Metoprolol Succinate 50 mg 10/29/21 22:35 10/30/21 00:00 Metoprolol Succ 50mg Ext Rel Tab PO 11/28/21 22:34 50 mg HS ZOILA Administration Morphine Sulfate 2 mg 10/29/21 22:35 10/30/21 06:10 Morphine Sulfate 2 Mg/Ml Carp IV 11/12/21 22:34 2 mg Q4H PRN Administration Pain Pantoprazole Sodium 40 mg 10/30/21 09:00 10/30/21 08:36 Pantoprazole 40 Mg Tab PO 11/29/21 08:59 40 mg QAM ZOILA Administration Sucralfate 1 gm 10/29/21 22:35 10/30/21 07:49 Sucralfate 1 Gm Tab PO 11/28/21 22:34 1 gm ACHS ZOILA Administration Tamsulosin HCl 0.4 mg 10/30/21 09:00 10/30/21 07:49 Tamsulosin Hcl 0.4 Mg Cap PO 11/29/21 08:59 0.4 mg DAILY ZOILA Administration Past Medical History Medical History Abnormal LFTs 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 Exertional dyspnea Fatty liver Fibromyalgia GERD (gastroesophageal reflux disease) Heart palpitations Hiatal hernia History of IBS Hyperlipidemia BORDERLINE HIGH Migraine Nephrolithiasis Neuropathy Palpitations Polycystic ovarian syndrome Proteinuria Temporomandibular joint disorder Past Family History Family History Mother Suicide Depression Aunt Uterine cancer great aunt Father Dyslipidemia Heart disease Grandmother (Maternal) Kidney disease, Onset Age: 13 diagnosed with CKD as age 13 secondary to glomerulonephritis, at age 23 from renal failure and uremia Denies family history of Ovarian cancer Prostate cancer Breast cancer FH: pancreatic cancer Colorectal cancer Past Surgical History Surgical History History of colonoscopy History of cystoscopy History of esophagogastroduodenoscopy (EGD) History of tooth extraction Hx of laparoscopy Diagnostic with normal findings 07/26/2018. Nausea and vomiting after administration of anesthetic agent S/P hemorrhoidectomy S/P wrist surgery RT WRIST SURGERY Social History Smoking Status: Never smoker Do You Dip or Chew Tobacco: No Hx Alcohol Use: No Alcohol type: wine alcohol intake frequency: a few times a month Hx Substance Use: No substance use type: does not use Physical Exam Vital Signs Last Vital Signs Temp 98.6 F 10/30/21 07:20 Pulse 90 10/30/21 07:20 Resp 18 10/30/21 07:20 BP 123/76 10/30/21 07:20 Pulse Ox 93 10/30/21 07:20 Testing Laboratory Results 10/30/21 08:18 10/30/21 08:18 Urine Color Dark Yellow 10/29/21 17:05 Urine Appearance Clear (Clear) 10/29/21 17:05 Urine pH 8.0 (4.5-7.5) H 10/29/21 17:05 Ur Specific [place] 1.011 (1.000-1.030) 10/29/21 17:05 Urine Protein Negative (Negative) 10/29/21 17:05 Urine Glucose (UA) Negative (Negative) 10/29/21 17:05 Urine Ketones Negative (Negative) 10/29/21 17:05 Urine Nitrite Positive (Negative) A 10/29/21 17:05 Ur Leukocyte Esterase Trace (Negative) H 10/29/21 17:05 Urine WBC (Auto) 5-10 /hpf (0-5) H 10/29/21 17:05 Urine RBC (Auto) >30 /hpf (0-4) H 10/29/21 17:05 U Hyaline Cast (Auto) 1-5 /lpf (0-5) 10/29/21 17:05 U Epithel Cells (Auto) >30 /lpf (0-5) H 10/29/21 17:05 Urine Bacteria (Auto) Negative (Negative) 10/29/21 17:05 Electrocardiogram Date: 10/29/21 Normal sinus rhythm, rate 79 bpm Low voltage QRS Poor R wave progression, consider anterior [place] vs. lead placement vs. LVH Abnormal ECG Confirmed by Bishop Farias ([id number]) on 10/29/2021 4:34:24 PM
[2021-10-30] MEDS ORDERED: LIDOCAINE 2% 2 ML VIAL/AMP(20MG/ML) INFIL ONE (10:40)
[2021-10-30] MEDS ORDERED: MIDAZOLAM HCL 1 MG/ML 2ML VIAL ONE (10:40)
[2021-10-30] MEDS ORDERED: PROPOFOL IV EMULSION 10 MG/ML 20 ML VIAL IV ONE ×2 (10:40→11:18)
[2021-10-30] MEDS ORDERED: fentaNYL citrate 100 MCG/2 ML VIAL ONE (10:40)
--- NOTE | 2021-10-30 10:53 | History & Physical Bridge Note ---
Date of Service October 30, 2021 History & Physical Bridge Note I have examined the patient, reviewed the History & Physical and in the interval since the performance of the History & Physical I have noted the following changes of clinical significance: no changes noted Cystoscopy with right stent. Possible ureteroscopy
[2021-10-30] MEDS ORDERED: ONDANSETRON INJ 2 MG/ML 2 ML VIAL ONE (11:18)
[2021-10-30] MEDS ORDERED: DIATRIZOATE MEGLUMINE 30% 100ML VIAL INSTIL ONE (11:28)
--- NOTE | 2021-10-30 11:29 | Operative Report ---
PG Post Operative Report Pre & Post Diagnosis Operation Date: 10/30/21 10:25 Pre-Op Diagnosis: Right renal stone Post-Op Diagnosis: Right renal stone I identified the patient and participated in the time-out.: Yes Procedure Operation Date: 10/30/21 10:25 Actual Procedures p Cystoscopy - Guille Larson DO s Right ureteroscopy, right Ureteral Stent Insertion, retrograde pyelogram, and ureteral dilation. - Guille Larson DO Surgeon Guille Larson, II, DO Dog Sitter None Estimated Blood Loss 1 Findings Consistent with Post-Op Diagnosis Stricture of distal ureter dilated. Stent placed. Specimens Stone Fragments Drains 6 Fr x 24 Right Anesthesia Type General Complications none Disposition Disposition: Recovery Room Indications Patient with bothersome stones. Risks and benefits discussed at length. Description of Procedure Patient was consented and brought back to the operating room. Patient was placed under anesthesia in the supine position and moved to the dorsal lithotomy position. Patient was prepped and draped in the regular sterile fashion. A time out was completed. A 30degree Cystoscope was placed into the bladder and the entire bladder was examined. The UO's were identified. The UO was cannulized with a catheter and a retrograde pyelogram was completed. A wire was then placed. The Rigid ureteroscope was taken into the ureter. A severe stricture was noted in the distal end of the distal ureter. This was dilated and bypassed. No stone was identified however the area just proximal to the stricture was extremely inflammed. The scope was advanced to the proximal ureter. The entire area was once again examined. No residual large fragments or areas of concern were noted. The scope was slowly removed with the wire left in place. Contrast was placed through the scope for a pyelogram to assist in stent placement. The entire ureter was examined as the scope was slowly removed. No obstructions or other areas of concern were noted. With the wire in place, a 6 Fr Double J stent was placed. It was confirmed with fluoroscopy. With the stent in place, the bladder was emptied. The scope was removed. The patient was cleaned, aroused from anesthesia, and transferred to the pacu in stable condition having tolerated the procedure well with no complications. I was present and participated in all aspects of the procedure. The patient will be monitored in the PACU until transferred. Plan to maintain stent for approx 2 weeks and repeat imaging vs repeat ureteroscopy. I attest to the content of the Intraoperative Record and any orders documented therein. Any exceptions are noted below.
--- NOTE | 2021-10-30 12:07 | Anesthesiology Progress Note ---
Date of Service October 30, 2021 Anesthesia Post Procedure Vital Signs Vital Signs: Temp Pulse Pulse Resp BP BP Pulse Ox 10/30/21 11:55 99.0 F 85 18 129/75 94 10/30/21 11:45 87 21 133/77 94 10/30/21 11:37 99.3 F 95 H 20 125/78 94 10/30/21 07:20 98.6 F 90 18 123/76 93 10/29/21 22:35 97.7 F 95 H 18 138/80 94 10/29/21 20:17 97.7 F 95 H 18 169/85 H 94 10/29/21 19:29 97.2 F L 73 18 156/76 H 98 10/29/21 16:30 69 23 149/97 H 96 10/29/21 15:34 86 24 120/85 95 10/29/21 15:30 83 16 100 10/29/21 15:02 97.3 F L 94 H 20 148/86 H 96 Pain Intensity Right Flank: Pain Intensity: 2 Transfer of Care Handoff Completed per policy Notes Mental Status: alert / awake / arousable and participated in evaluation Patient Amnestic to Procedure: Yes Nausea / Vomiting: adequately controlled Pain: adequately controlled Airway Patency, RR, SpO2: stable & adequate BP & HR: stable & adequate Hydration State: stable & adequate Anesthetic Complications: no major complications apparent and Pt Satisfied with anesthetic care
--- NOTE | 2021-10-30 14:16 | Fluoroscopy Report ---
FL retrograde includes kub CLINICAL HISTORY: RETROGRADE WITH STENT PLACEMENT COMPARISON STUDY: None FLUOROSCOPY TIME: 20 seconds. FLUOROSCOPIC IMAGES: 3 FINDINGS: Contrast seen within the intrarenal collecting systems on initial image. Subsequently, doub le-J ureteral stent was placed in the right. IMPRESSION: Placement of double-J ureteral stent on the right. ACT 112: Negative or not required by law. Electronically signed by: Supa Velez M.D. 10/30/2021 2:15 PM
[2021-10-30] MEDS ORDERED: PHENAZOPYRIDINE HCL 200 MG TAB PO STA (15:41)
--- NOTE | 2021-10-30 15:43 | Discharge Summary ---
Date of Service October 30, 2021 Admission HPI Per Admitting Provider Klaudia Lundberg is a pleasant 51y female with history of GERD, HLP, Fibromyalgia presenting with right flank pain. Patient was initially seen in the ER on 10/21/21 with acute onset of right lower back pain with radiation into her RLQ with nausea and difficulty urinating. CT of the abdomen at that time showed a 3mm stone at the right UVJ with associated hyronephrosis. UA was unremarkable, renal function intact. She was treated with Flomax, Oxycodone, Zofran, Toradol and IVF. She was discharged home with Flomax 0.4mg daily, Zofran 4mg po q 6 hours PRN and Oxycodone 5mg po q 6 hours PRN. She was seen by Urology on 10/22/21. Given size and location of the stone it was discussed that she had a high probability of passing the stone. She was instructed to continue Tylenol, Ibuprofen, Pyridium, Flomax, Zofran and Oxycodone. She was to return to Urology in two weeks to assess for stone passage. Patient felt better for a short time. Did not pass any stone or fragments to her knowledge. She had recurrence of right flank pain/back pain and nausea this AM at 0200. She reports frequent urination and urgency sensation. Denies fever but has had some chills associated with pain. Otherwise, denies fever, chest pain, cough, SOB, abdominal pain, diarrhea. She started menstruating recently - atypical pattern, bleeding/spotting then stopping as well as 5 days earlier than expected. She reports regular menses. Review of Gynecology note from 11/05/20 - patient has dysuria symptoms occasionally near time of her period. Also had DUB in July 2020 - was to have a biopsy but was not performed. Has had kidney stones in the past. Cystopscopy performed years ago Admission Exam Per Admitting Provider Nephrolithiasis with Obstruction Principal Diagnosis General: patient resting comfortably, NAD, non-toxic in appearance, AA&O x 4 Skin: warm, dry, intact, no rashes or lesions HEENT: NC/AT, PERRL, EOMI, anicteric sclera, conjunctiva without injection, external ear normal to inspection and nontender, nares patent, moist mucus membranes, dentition intact, no oropharyngeal lesions, neck supple, trachea midline, no LAD, no thyromegaly, no JVD Heart: +S1/S2, regular, no m/r/g Lungs: equal air entry bilaterally, no rales/rhonchi/wheezes Abd: +BS, soft, NT/ND, no masses/organomegaly/ascites, right CVA tenderness present Ext: warm, 2+ pulses in UE/LE bilaterally, no clubbing/cyanosis or edema Neuro: nonfocal, patient AA&O x 4, speech intact, no facial droop, moving all extremities on command with equal strength 5/5 Discharge Exam General: WD/WN female resting comfortably in bed HEENT: head normocephalic, atraumatic, eyes anicteric, pupils equal, moist mm Resp: CTAB, diminished in the bases, no w/c/r, on room air CV: RRR, no m/r/g, no edema, pulses palpable GI: +BS throughout, soft, generalized discomfort reported but not overly tender to palpation, no guarding/rigidity : +R CVA tenderness Psych: AOx3, cooperative, calm Neuro: follows commands, no slurred speech , answering questions appropriately Discharge Data Allergies Allergy/AdvReac Type Severity Reaction Status Date / Time erythromycin base Allergy Intermediate VOMITTING Verified 10/29/21 15:37 lamotrigine [From Lamictal] Allergy Intermediate Rash Verified 10/29/21 15:37 nitrofurantoin Allergy Intermediate hives Verified 10/29/21 15:37 [From Macrobid] Consultations 10/29/21 19:38 ED Decision to Admit Stat 10/30/21 00:06 Consult Urology Routine Procedures Performed Operation Date: 10/30/21 10:25 Actual Procedures p Cystoscopy - Guille Larson DO s right ureteral dilation, Right ureteroscopy, right retrograde pyelogram, right Ureteral Stent Insertion(Right) - Guille Larson DO Ordered Studies Abdomen/Pelvis CT 10/29/21 15:18 CT abd pelvis wo con CLINICAL HISTORY: right flank to low back pain, recent stone COMPARISON STUDY: 10/21/2021 CT DOSE: 949.21 mGycm TECHNIQUE: Standard CT of the Abdomen and Pelvis was performed without IV contrast. The patient did not receive oral contrast. A dose lowering technique was utilized adhering to the principles of ALARA. FINDINGS: Lung base: The lung bases are clear. Minimal chronic scarring is seen involving the right middle lobe. Abdominal cavity: There is no evidence for abdominal mass, adenopathy or ascites. Liver: The liver is homogeneous in attenuation on these limited noncontrast images.. Spleen: The spleen is homogeneous in attenuation on these limited noncontrast images. Pancreas: The pancreas is homogeneous in attenuation on these limited noncontrast images. Gall Bladder: The gallbladder is well distended with no evidence for cholelithiasis, wall thickening or pericholecystic edema.. Adrenal glands: The adrenal glands are normal in size and attenuation on these limited noncontrast images. Kidneys: Compared to previous examination, there is increased swelling and maty nephric stranding present involving the right kidney with moderate hydronephrosis and hydroureter again seen to the level of the UVJ. 3 mm calculus is again seen at the UVJ producing the obstruction present. There is again no evidence for left renal calculus or hydronephrosis.. There is no evidence for gross renal mass, calculus or hydronephrosis bilaterally. Bowel: The bowel loops are normally placed within the abdomen and pelvis without evidence for dilatation or obstruction. There is no evidence for mass lesion. There are no inflammatory changes present. There is no evidence for free air. There is a normal appendix in the right lower quadrant. Bladder: There is no evidence for focal bladder wall thickening, calculus or diverticulum. : There is no evidence for pelvic mass or adenopathy. There is evidence for a 2.8 cm left ovarian cyst. Vasculature: There is no evidence for focal aneurysmal dilatation of the abdominal aorta. Osseous structures: There is no acute osseous pathology. IMPRESSION: 1. Compared to the previous examination, 3 mm calculus is again seen at the right UVJ with persistent moderate hydronephrosis and hydroureter on the right. There is increased swelling and perinephric stranding of the right kidney. 2. No other evidence for acute intra-abdominal or pelvic abnormality on these limited noncontrast images. 3. 2.8 cm left ovarian cyst. ACT 112: Negative or not required by law. Electronically signed by: Supa Velez M.D. 10/29/2021 4:32 PM Retrograde Pyelogram 10/30/21 00:00 FL retrograde includes kub CLINICAL HISTORY: RETROGRADE WITH STENT PLACEMENT COMPARISON STUDY: None FLUOROSCOPY TIME: 20 seconds. FLUOROSCOPIC IMAGES: 3 FINDINGS: Contrast seen within the intrarenal collecting systems on initial image. Subsequently, double-J ureteral stent was placed in the right. IMPRESSION: Placement of double-J ureteral stent on the right. ACT 112: Negative or not required by law. Electronically signed by: Supa Velez M.D. 10/30/2021 2:15 PM KUB X-Ray 10/30/21 07:00 XR KUB/Abdomen 1 view CLINICAL HISTORY: assess right kidney stone. COMPARISON STUDY: CT of the abdomen and pelvis from 10/29/2021 TECHNIQUE: Single view of the abdomen. FINDINGS: The bowel gas pattern is within normal limits without evidence for dilatation or obstruction. There is no evidence for organomegaly or gross intra-abdominal mass. The 3 mm right UVJ calculus seen on CT cannot be identified radiographically. No abnormal calcifications are seen along the course of the urinary tracts bilaterally. No acute osseous pathology. IMPRESSION: 1. No acute intra-abdominal abnormality. ACT 112: Negative or not required by law. Electronically signed by: Supa Velez M.D. 10/30/2021 9:24 AM Hospital Course (1) Kidney stone on right side: 51yo female with 3mm nephrolithiasis present at right UVJ initially diagnosed on 10/21/21. Patient had been managing conservatively at home with Flomax, Zofran and pain control and had seen Urology as an outpatient in the last week and was to have followup in a week She had some initial relief but had worsening discomfort this AM which prompted her to return to the ER. Labs demonstrated a neutrophil predominant leukocytosis with WBC=13.14 on admission with increase in Cr from 0.59 --> 1.03, repeat wnl UA with 3+ blood, +Nitrite, trace LE, 5-10 WBC, >30 epi. Alkaline urine with pH 8. Urine culture NEGATIVE CT re-demonstrates 3mm calculus at right UVJ with persistent moderate right sided hydronephrosis and hydroureter. Also with increased swelling and perinephric stranding of the right kidney. Urology on consult Antiemetics, pain control, supportive care provided s/p cyto and stent 10/30 Ceftriaxone IV given while inpatient, no abx at discharge given negative urine culture WBC trended down, suspect could have also been elevated due to n/v prior to admission Cr 0.62 Continue flomax/strain urine and follow up with Urology in next 1-2 weeks for stent removal Sent rx for pain control, Pyridium prn bladder spasm, and oxybutynin for ureteral spasms prn (2) Fibromyalgia: Chronic. Patient reports worsening body pain of late. Tylenol, diclofenac prn, heating pad used while inpatient (3) GERD (gastroesophageal reflux disease): Chronic. Hx of Barrets. Only on PPI once daily GALLEY STRIPPER Placed on pepcid while inpatient switched to protonix given barretts and continued carafate while inpatient Output f/u GI routine (4) Hyperlipidemia: Chronic Continued Atorvastatin 40mg po daily (5) Palpitations: Hx of such, denies any at present. Also with HLD, and on atorvastatin 40mg daily Continued metoprolol 50mg daily Also has Hx IBS and utilizes bentyl prn, continued Total Time Total Time Spent Total Time Spent (In Minutes): 45 Discharge Plan Discharge Items Patient Disposition: Home - Self-Care Reason For Visit: RIGHT RENAL STONE Discharge Diagnosis: Nephrolithiasis with obstruction Goals: You have been hospitalized for an urgent problem which required surgery. During your stay at [facility], we have made an effort to correct the problem that brought you to the hospital while keeping you as comfortable as possible. Surgery and medications were used to bring your condition under control and your discharge instructions will include directions for any medications you should take after leaving the hospital. Please make sure to follow the advice of your surgeon regarding follow up with the surgeon and with your primary care provider. Activity: Resume your previous activity Non-emergency contact: Primary Care Provider and Urologist Call non-emergency contact if: you have any medication questions, your symptoms worsen and your pain is not controlled Follow-up/Referrals: Guille Larson DO [Physician] - (1-2 weeks, office will call) Sarmad Ashley DO [Primary Care Provider] - Diet: Heart Healthy Addtl Attending Provider Instructions: You have been hospitalized for worsening abdominal pain and found to have obstructing kidney stone. You were treated with antibiotics for suspected UTI, however urine culture was negative. Urology was consulted and you underwent cystoscopy and stent placement. No stone was visualized but you can continue flomax, and strain urine. If collected, this can be sent for analysis in the future. You are being sent with a couple days of Cipro to cover for infection despite negative culture, just because you had instrumentation to prevent infection. You are being sent with pain medication to use for breakthrough pain but can use Tylenol/ibuprofen for non-severe pain. Be cautious as pain medication can cause constipation and you can use over the counter stool softeners. You have also been sent some Pyridium as needed for bladder spasm/stent irritation. Please note this can cause your urine to appear orange as discussed. You can also utilize oxybutynin 5mg for spasm discomfort. You will need follow up with Urology and per Dr Larson, their office will call you with an appointment. If you don't hear from them early this week please call their office at [phone] Please follow up with your PCP in the next 7-10 days to monitor your progress. Please return to the emergency department with any fevers, increased pain, inability to keep up with oral intake, or for any other symptoms concerning for you. It has been a pleasure being a part of the medical team providing for you while you have been in the hospital. Take care! Pending Studies at Discharge: No Stand-Alone Forms: My [facility], Opioid Pain Management Medications and DC Order Prescriptions: New phenazopyridine [Pyridium] 100 mg tablet 100 mg PO Q8H PRN (Reason: pain) Qty: 10 RF: 0 oxycodone 5 mg tablet 5 mg PO Q8H PRN (Reason: pain) Qty: 12 RF: 0 ciprofloxacin HCl 500 mg tablet 500 mg PO BID Qty: 6 RF: 0 oxybutynin chloride 5 mg tablet 5 mg PO TID PRN (Reason: bladder spasms) Qty: 10 RF: 0 Continued cholecalciferol (vitamin D3) 50 mcg (2,000 unit) capsule 50 mcg PO QAM RF: 0 sucralfate 1 gram tablet 1 g PO QID RF: 0 metoprolol succinate 50 mg tablet extended release 24 hr 50 mg PO HS RF: 0 meloxicam 7.5 mg tablet 7.5 mg PO DAILY PRN (Reason: Pain) RF: 0 atorvastatin [Lipitor] 40 mg tablet 40 mg PO DAILY RF: 0 multivitamin Tablet 1 tab PO QAM RF: 0 sumatriptan succinate [Imitrex] 100 mg Tablet 1 tab PO UD PRN (Reason: Migraine Headache) RF: 0 rizatriptan [Maxalt] 10 mg Tablet 1 tab PO UD PRN (Reason: Migraine Headache) RF: 0 dicyclomine 10 mg Capsule 10 mg PO TID PRN (Reason: ABD PAIN) RF: 0 omeprazole 40 mg capsule,delayed release(DR/EC) 40 mg PO QAM RF: 0 acetaminophen [Tylenol Extra Strength] 500 mg Tablet 1,000 mg PO QID PRN (Reason: Pain) RF: 0 ascorbic acid (vitamin C) [Vitamin C] 500 mg Tablet 500 mg PO QAM RF: 0 ibuprofen [Advil] 200 mg Tablet 400 mg PO Q6H PRN (Reason: Pain) RF: 0 Advil PM 200-38 mg Tablet 1 cap PO HS PRN (Reason: Sleep) RF: 0 diclofenac sodium 1 % Gel 2 g TOPICAL QID PRN (Reason: Pain) RF: 0 tamsulosin [Flomax] 0.4 mg capsule 0.4 mg PO DAILY Qty: 7 RF: 0 ondansetron 4 mg tablet,disintegrating 4 mg PO Q6H PRN (Reason: nausea and vomiting) Qty: 12 RF: 0 oxycodone 5 mg tablet 5 mg PO Q6H PRN (Reason: Pain) RF: 0 Discharge Orders: Discharge Order (Routine); Ordered 10/30/21 Ordered By: Diana Morris Admission Data Admit Date/Time: 10/29/21 20:18 Attending Provider: Gabriella Nguyen Admit Provider: Chelsea Peres Primary Care Provider: Sarmad Ashley Other Providers: Chelsea Peres ; Guille Larson Other Interventions: Discharge Summary Assessment (RN) Last Done: 10/30/21 15:44 Supervising Physician Co-Signing Physician Notes PA Supervision Note: I did not personally see or examine the patient today, but I verified all finn points of BRAYAN Morris's assessment and plan with the following exceptions/additions: It seems this patient could potentially be discharged later today if dong well post-op Coding Level of Care Code D/C DAY MANAGEMENT >30 MINS Diagnoses Kidney stone on right side N20.0 Fibromyalgia M79.7 GERD (gastroesophageal reflux disease) K21.9 Hyperlipidemia E78.5 Palpitations R00.2
[2021-10-30] MEDS ORDERED: OXYBUTYNIN CHLORIDE 5 MG TAB PO ONE (17:00)
== END 2021-10-30 18:17 | disposition home or self-care (01) | DRG 661 ==
LOC: ED 14:57 → SUATTDRO 20:18 → 3W 20:18

== ENCOUNTER 2025-04-02 12:03 | Inpatient (IN) ==
--- NOTE | 2025-04-02 13:08 | XRay Report ---
XR chest 1V not portable HISTORY: 55 years-old Female Weakness COMPARISON: 02/24/2021 TECHNIQUE: PA view of the chest FINDINGS: Cardiac mediastinal and hilar silhouettes are within normal limits. No pneumothorax, pleural effusion , airspace consolidation or pulmonary edema. Bones of the chest appear grossly intact. IMPRESSION: No acute process. ACT 112: Negative or not required by law. The above report was generated using voice recognition software. It may contain grammatical, syntax o r spelling errors. Electronically signed by: Ar Sparks M.D. 04/02/2025 1:06 PM
[2025-04-02 13:12] LABS: Hematocrit (blood only) 40.9 % (37.0-47.0); Hemoglobin 13.6 g/dl (12.0-16.0); Immature Granulocytes # (auto) 0.04 K/uL (0.01-0.20); Immature Granulocytes % (auto) 0.5 %; Mean Corpuscular Hemoglobin 28.6 pg (25.0-34.0); Mean Corpuscular Volume 85.9 fL (80.0-100.0); Platelet Count 313 K/uL (130-400); RDW Standard Deviation 41.7 fL (36.4-46.3); Red Blood Count 4.76 M/uL (4.20-5.40); White Blood Count 8.24 K/ul (4.8-10.8)
[2025-04-02 13:18] LABS: Appearance Urine Clear (Clear); Bacteria Urine Automated None Seen (None Seen); Cast Urine Automated 0-2 /lpf (0-2); Glucose Urine UA Negative (Negative); RBC Urine Automated 0-2 /hpf (0-2); WBC Urine Automated 0-5 /hpf (0-5)
[2025-04-02 13:33] LABS: Alanine Aminotransferase 46 U/L (7-52); Albumin Globulin Ratio 1.3 (0.9-2); Alkaline Phosphatase 75 U/L (34-104); Anion Gap 9 (3-11); Bilirubin,Total 0.4 mg/dl (0.2-1.0); Blood Urea Nitrogen 9 mg/dl (6-23); Calcium 9.0 mg/dl (8.6-10.3); Carbon Dioxide 28 mmol/L (21-32); Chloride 103 mmol/L (98-107); Creatinine Clr Calc Pharmacy 119.6 ml/min; Globulin 3.3 gm/dl (2.5-4.0); Glucose 98 mg/dl (70-99(Fasting)); Magnesium 2.0 mg/dl (1.7-2.4); Potassium 3.6 mmol/L (3.5-5.1); Sodium 140 mmol/L (136-145); Total Protein 7.6 gm/dl (6.0-8.3)
[2025-04-02 13:38] LABS: INR 0.9 (0.9-1.1); Partial Thromboplastin Time 26 Seconds (21-31); Prothrombin Time 10.3 Seconds (9.0-12.0)
[2025-04-02 13:47] LABS: Thyroid Stimulating Hormone 1.679 uIu/ml (0.300-4.500)
--- NOTE | 2025-04-02 14:59 | Emergency Department Note ---
Impression & Plan Numbness on right side, Paresthesias ED Provider Note HISTORY OF PRESENT ILLNESS: Patient is a 55-year-old female presenting with paresthesias. Patient reports that she has a history of peripheral neuropathy. She states that last night at 9 PM she was working at her computer when she developed a pins and needle sensation in her bilateral hands. Reports that it progressed up her arms bilaterally but seem to be worse on the right. She states that at 9:30 PM, she had stood up from the computer and went to walk into another room when she started noticing some numbness and tingling down the right side of her body, into her genital region and down her right leg. She states that she did not sleep well last night secondary to these pins and needle sensation lasting for few hours. She states that when she woke up this morning she was symptom-free, but when she got up to get around for the day she had significant pins and needle sensation from her right shoulder down her right side and into her right leg and toes. She states that this pins and needle sensation does not feel like her typical neuropathy. She states that 5 days ago she started having episodes of incontinence after having an episode of right low back pain. She states that she will feel like she needs to void but when she goes to the bathroom she is unable to and then will "have an accident." Denies any recent falls or head injury or back trauma. She denies any recent fevers. She states no medication changes other than her Lyrica dose was increased by her neurologist this morning. She states that her neurologist thought that she might just have some inflammation, but given her persistent pins and needle sensation on her right side, she decided to be evaluated. Denies any headache or changes in vision. Reports that her right arm feels slightly weaker than her left secondary to these paresthesias. Denies any chest pain or shortness of breath. She states that when she is up and walking around, "both my calves feel very crampy and weak." She states that she walked up a few stairs in her house today and had significant cramping of her bilateral calves. She denies any recent steroid use. ROS: as above PHYSICAL EXAM: Constitutional: Patient appears in no acute distress. HENT: Head: Normocephalic and atraumatic. Eyes: EOMI, PERRL Mouth/Throat: Mucous membranes moist. Neck: Trachea midline. Neck supple. Cardiovascular: RRR, No murmurs, rubs or gallops. Intact distal pulses. Pulmonary/Chest: No respiratory distress. Breath sounds clear and equal bilaterally. No wheezes or rales Abdominal: Abdomen soft, no tenderness, rebound or guarding. Musculoskeletal: No edema, tenderness or deformity noted. Skin: Warm and dry. No rash, erythema, pallor or cyanosis Psychiatric: Appropriate mood and affect for situation. Neurological: Alert and keenly responsive. Facies symmetric. Able to raise eyebrows, close eyes, smile, puff mouth, stick out tongue, move tongue left and right and raise palate symmetrically. Able to shrug shoulders. PERRLA. SILT to forehead below eye and at jawline. Can hear soft noise bilaterally. Good finger to nose. Strength 5/5 in bilateral upper and lower extremities. Patient reports decrease sensation to the right upper and right lower extremity as compared to the left. She describes the decrease sensation as "lywj-mwi-aiglxqf worse on the right." MDM: - Vitals signs showed hypertension and tachycardia. - History obtained via patient. History as above. - Chronic conditions affecting care: PCOS; GERD; HLD; DM-2; peripheral neuropathy - Differential diagnoses include, but are not limited to: CVA; intracranial hemorrhage; electrolyte abnormality; neuropathy; multiple sclerosis - Order placed for continuous cardiac monitoring. At this time, monitor showed rate of 87 bpm with normal sinus rhythm, per my interpretation. - External medical records reviewed. Neurology office visit note from today was reviewed. She was instructed to change her Lyrica dosing to spread throughout the day given her increasingly escalating symptoms. - EKG image interpreted by myself showed normal sinus rhythm. Rate tachycardic at 103 bpm. QT 328. No acute ischemic changes. - Laboratory workup interpreted by myself showed normal WBC; normal PT/INR; stable electrolytes; normal troponin; normal TSH; normal magnesium - UA negative for infection - CXR reviewed interpreted myself is negative for pneumonia, per my interpretation. - CT thoracic spine wo contrast negative for acute pathology - CT head wo contrast negative for acute pathology - CTA head/neck negative for acute pathology - Unclear etiology for the patient's paresthesias at this time. She is having persistent numbness and tingling most notably on the right side of her body. However, she has had intermittent episodes on the left side of her body. Patient reports she has had previous MRI imaging that was negative for multiple sclerosis. She has never had a lumbar puncture to rule this etiology out. Will discuss case with hospitalist service to see about further MRI imaging versus potential LP for further workup of her paresthesias. - Discussion was had with insurance case manager about patient's case and need for admission - Hospitalist consulted for admission - Patient admitted to [facility] hospitalist service for further evaluation and management. ASSESSMENT AND PLAN: Diagnosis: right sided numbness; paresthesias Plan: admit Past Med/Surg History Problem List Paresthesias (Acute) Numbness on right side (Acute) Peripheral neuropathy Lumbosacral radiculopathy Vitamin D deficiency Weight gain Type 2 diabetes mellitus with hyperglycemia Migraine without aura and without status migrainosus, not intractable Numbness and tingling of both feet Small fiber neuropathy Leg length discrepancy Night sweats Menopausal symptoms Myofascial pain Vulvitis Lumbosacral radiculopathy at S1 Vaginal discharge Atrophic vaginitis Fatigue Obesity Diabetes type 2, uncontrolled PCOS (polycystic ovarian syndrome) Left hip pain (Chronic) Encounter for pre-operative examination (Chronic) Left groin pain (Chronic) Genitofemoral neuralgia of left side (Chronic) Myelopathy (Chronic) Paresthesia (Chronic) Headache (Chronic) Dysfunctional uterine bleeding Vulvar burning Vertigo Kvuxrjnnyy-rhbtqiq-zhgjnradu (DTP) vaccination (Acute) Kidney stone on right side (Acute) Nausea & vomiting (Acute) Ureteral stricture Nephrolithiasis Neuropathy Fibromyalgia Fatty liver 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 has since resolved. Proteinuria Hyperlipidemia (Chronic) BORDERLINE HIGH Migraine (Chronic) hx Temporomandibular joint disorder (Chronic) clicks and pops, never locked. GERD (gastroesophageal reflux disease) (Chronic) History of IBS (Chronic) Hiatal hernia (Chronic) Polycystic ovarian syndrome (Chronic) Nausea and vomiting after administration of anesthetic agent (Chronic) Medical History Pre-diabetes Chronic pain Chronic back pain Sleep apnea Right upper quadrant abdominal pain Exertional dyspnea Palpitations Heart palpitations Nephrolithiasis Surgical History S/P ureteral stent placement S/P tendon repair History of repair of rotator cuff (07/12/22) S/P hemorrhoidectomy Hx of laparoscopy S/P wrist surgery History of cystoscopy History of colonoscopy History of esophagogastroduodenoscopy (EGD) History of tooth extraction Family History Mother Suicide Depression Aunt Uterine cancer Father Dyslipidemia Heart disease Grandmother (Maternal) Kidney disease, Onset Age: 13 Denies family history of Ovarian cancer Prostate cancer Myocardial infarction Breast cancer FH: pancreatic cancer Colorectal cancer Social History Smoking Status: Never smoker Second Hand Exposure: No; Do You Dip or Chew Tobacco: No; Hx Alcohol Use: No Hx Substance Use: No Preferred Language: Libyan Communication Ability: Effective Visual Impairment: No Limitations Hearing Ability: Normal Research Compliance Specialist Required: No Beliefs That Will Affect Care: None Current Living Situation: Spouse current occupational status: employed 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 Feels Safe at Home: Yes Assistive Devices: CPAP and Glasses Allergies Allergies Allergy/AdvReac Type Severity Reaction Status Date / Time erythromycin base Allergy Intermediate VOMITTING Verified 04/02/25 16:01 lamotrigine [From Lamictal] Allergy Intermediate Rash Verified 04/02/25 16:01 nitrofurantoin Allergy Intermediate hives Verified 04/02/25 16:01 [From Macrobid] chlorhexidine Allergy Mild Rash Verified 04/02/25 16:01 Home Meds Home Medications Medication Instructions Recorded Confirmed omeprazole 40 mg capsule,delayed 40 mg PO BID 04/03/19 04/02/25 release sucralfate 1 gram tablet 1 g PO BID 01/26/21 04/02/25 cholecalciferol (vitamin D3) 50 50 mcg PO QAM 02/01/21 04/02/25 mcg (2,000 unit) capsule acetaminophen 500 mg tablet 1,000 mg PO QID PRN Pain 02/22/21 04/02/25 (Tylenol Extra Strength) atorvastatin 40 mg tablet (Lipitor) 40 mg PO QPM 03/12/21 04/02/25 glycopyrrolate 2 mg tablet 2 mg PO BID PRN IBS symptoms 09/05/22 04/02/25 magnesium 200 mg tablet 200 mg PO DAILY 12/03/24 04/02/25 meloxicam 15 mg tablet 15 mg PO DAILY 12/17/24 04/02/25 amitriptyline 25 mg tablet 25 mg PO HS 02/18/25 04/02/25 duloxetine 30 mg capsule,delayed 30 mg PO DAILY 04/02/25 04/02/25 release estradiol 0.01% (0.1 mg/gram) 1 appful vaginal 2XWK 04/02/25 04/02/25 vaginal cream metformin 500 mg tablet,extended 500 mg PO ACHS 04/02/25 04/02/25 release 24 hr rimegepant 75 mg disintegrating 75 mg PO DIRECTED PRN migraine 04/02/25 04/02/25 tablet (Nurtec ODT) headache sumatriptan succinate 100 mg 1 tab PO DIRECTED PRN Migraine 04/02/25 04/02/25 tablet (Imitrex) Headache Previous Rx's Medication Instructions Recorded fremanezumab-vfrm 225 mg/1.5 mL 225 mg (1.5 mL) subcut MONTHLY 01/31/25 subcutaneous auto-injector (Ajovsaige) #1.5 mL tirzepatide 2.5 mg/0.5 mL 2.5 mg (0.5 mL) subcut .weekly #2 02/24/25 subcutaneous pen injector mL (Catherine) pregabalin 200 mg capsule 200 mg PO TID #90 caps 04/02/25 Results & Data (ED) Vital Signs Vital Signs - 24 hr 04/02/25 12:11 04/02/25 14:05 04/02/25 14:13 Temperature 36.6 C Temperature Source Temporal Artery Scan Pulse Rate 103 H 98 H Pulse Rate from SpO2 Sensor Pulse Rhythm Regular Pulse Strength Normal Respiratory Rate 18 Respiratory Effort / Characteristics Non-Labored Spontaneous Respiratory Depth Normal Respiratory Pattern Regular Blood Pressure 163/79 H Blood Pressure Mean 107 Pulse Oximetry 98 Oxygen Delivery Method Room Air Room Air Sepsis Recent Fever Within 48 Hours No Sepsis New/Unexplained Change in Mental Status N/A Sepsis Action Taken by Nursing No Action Required 04/02/25 14:13 04/02/25 14:30 04/02/25 15:00 Temperature Temperature Source Pulse Rate 98 H 96 H Pulse Rate from SpO2 Sensor 99 H 96 H Pulse Rhythm Pulse Strength Respiratory Rate 14 Respiratory Effort / Characteristics Respiratory Depth Respiratory Pattern Blood Pressure 146/86 H 153/92 H Blood Pressure Mean 101 123 Pulse Oximetry 96 99 98 Oxygen Delivery Method Room Air Sepsis Recent Fever Within 48 Hours Sepsis New/Unexplained Change in Mental Status Sepsis Action Taken by Nursing 04/02/25 15:30 04/02/25 16:00 Temperature Temperature Source Pulse Rate 87 87 Pulse Rate from SpO2 Sensor 87 87 Pulse Rhythm Pulse Strength Respiratory Rate 16 Respiratory Effort / Characteristics Respiratory Depth Respiratory Pattern Blood Pressure 149/106 H 156/99 H Blood Pressure Mean 117 118 Pulse Oximetry 95 96 Oxygen Delivery Method Sepsis Recent Fever Within 48 Hours Sepsis New/Unexplained Change in Mental Status Sepsis Action Taken by Nursing Laboratory Data 04/02/25 12:45 04/02/25 12:45 Lab Results 04/02/25 04/02/25 Range/Units 12:45 12:49 WBC 8.24 (4.8-10.8) K/ul RBC 4.76 (4.20-5.40) M/uL Hgb 13.6 (12.0-16.0) g/dl Hct 40.9 (37.0-47.0) % MCV 85.9 (80.0-100.0) fL MCH 28.6 (25.0-34.0) pg MCHC 33.3 (32.0-36.0) g/dL RDW Std Deviation 41.7 (36.4-46.3) fL RDW Coeff of [place] 13.4 (11.5-14.5) % Plt Count 313 (130-400) K/uL MPV 10.4 (9.4-12.4) fL Immature Gran % (Auto) 0.5 % Neut % (Auto) 60.1 % Lymph % (Auto) 27.1 % [place] % (Auto) 7.8 % Eos % (Auto) 3.8 % Baso % (Auto) 0.7 % Neut # (Auto) 4.96 (1.40-6.50) K/uL Lymph # (Auto) 2.23 (1.20-3.40) K/uL [place]mer # (Auto) 0.64 H (0.11-0.59) K/uL Eos # (Auto) 0.31 (0.00-0.50) K/uL Baso # (Auto) 0.06 (0.00-0.20) K/uL Immature Gran # (Auto) 0.04 (0.01-0.20) K/uL PT 10.3 (9.0-12.0) Seconds INR 0.9 (0.9-1.1) APTT 26 (21-31) Seconds PTT Ratio 1.0 Sodium 140 (136-145) mmol/L Potassium 3.6 (3.5-5.1) mmol/L Chloride 103 (98-107) mmol/L Carbon Dioxide 28 (21-32) mmol/L Anion Gap 9 (3-11) BUN 9 (6-23) mg/dl Creatinine 0.52 L (0.6-1.2) mg/dl Est Cr Clr Drug Dosing 119.6 ml/min eGFR 109.65 BUN/Creatinine Ratio 17.3 (10-20) Glucose 98 (70-99(Fasting)) mg/dl Calcium 9.0 (8.6-10.3) mg/dl Magnesium 2.0 (1.7-2.4) mg/dl Total Bilirubin 0.4 (0.2-1.0) mg/dl AST 34 (13-39) U/L ALT 46 (7-52) U/L Alkaline Phosphatase 75 (34-104) U/L Troponin I High Sens < 2.3 (0-14) pg/ml Total Protein 7.6 (6.0-8.3) gm/dl Albumin 4.3 (3.4-5.0) gm/dl Globulin 3.3 (2.5-4.0) gm/dl Albumin/Globulin Ratio 1.3 (0.9-2) TSH 1.679 (0.300-4.500) uIu/ml Urine Color Dark Yellow Urine Appearance Clear (Clear) Urine pH 6.0 (4.5-7.5) Ur Specific [place] 1.017 (1.000-1.030) Urine Protein 1+ H (Negative) Urine Glucose (UA) Negative (Negative) Urine Ketones Trace H (Negative) Urine Blood Negative (Negative) Urine Nitrite Negative (Negative) Urine Bilirubin Negative (Negative) Urine Urobilinogen Negative (Negative) Ur Leukocyte Esterase Negative (Negative) Urine WBC (Auto) 0-5 (0-5) /hpf Urine RBC (Auto) 0-2 (0-2) /hpf U Hyaline Cast (Auto) 0-2 (0-2) /lpf U Epithel Cells (Auto) 3-5 H (0-2) /hpf Urine Bacteria (Auto) None Seen (None Seen) Urine Comment Administered Medications Discontinued Medications Ioversol (Optiray 320 125ml) 119 ml IV ONCE ONE Stop: 04/02/25 15:14 Last Admin: 04/02/25 15:13 Dose: 119 ml Documented By: JACINTA Imaging Data Radiologist's Impression: Chest X-Ray 04/02/25 12:19 XR chest 1V not portable HISTORY: 55 years-old Female Weakness COMPARISON: 02/24/2021 TECHNIQUE: PA view of the chest FINDINGS: Cardiac mediastinal and hilar silhouettes are within normal limits. No pneumothorax, pleural effusion, airspace consolidation or pulmonary edema. Bones of the chest appear grossly intact. IMPRESSION: No acute process. ACT 112: Negative or not required by law. The above report was generated using voice recognition software. It may contain grammatical, syntax or spelling errors. Electronically signed by: Ar Sparks M.D. 04/02/2025 1:[address] 04/02/25 14:54 CT SCAN OF THE BRAIN WITHOUT IV CONTRAST CLINICAL HISTORY: Right sided numbness. COMPARISON STUDY: MRI of the brain June 07, 2019. Head CT February 22, 2021. TECHNIQUE: Unenhanced axial CT scan of the brain was performed from the vertex to the skull base. A dose lowering technique was utilized adhering to the principles of ALARA. FINDINGS: Brain parenchyma: No acute intracranial hemorrhage, midline shift or mass effect is present. Andrade-white matter differentiation is preserved. There are no extra- axial fluid collections. There are no findings to suggest acute dural sinus thrombosis or acute territorial infarct. Ventricles, sulci, cisterns: There is no hydrocephalus. The basal cisterns are patent. Calvarium: Unremarkable. Sinuses and mastoids: The visualized paranasal sinuses are clear. The mastoid air cells are well pneumatized. Orbits: The bony orbits are grossly intact. IMPRESSION: No acute intracranial findings. ACT 112: Negative or not required by law. Electronically signed by: José Miguel Wallace M.D. 04/02/2025 3:30 PM Head CTA 04/02/25 14:54 CT ANGIOGRAM OF THE BRAIN CLINICAL HISTORY: Right-sided numbness COMPARISON STUDY: Unenhanced CT scans of the brain dated 02/22/2021 and 04/02/2025 TECHNIQUE: Following the IV administration of 119 cc of Optiray 320, CT angiogram of the brain was performed from the skull base to the vertex. Images are reviewed in the axial, sagittal, and coronal planes. 3-D MIPS images are created and assessed. IV contrast was administered without complication. A dose lowering technique was utilized adhering to the principles of ALARA. CT DOSE: 2473.14 mGy.cm FINDINGS: Brain parenchyma: There is no evidence of hemorrhage or mass effect noting angiographic phase technique. There is no evidence of enhancing mass lesion on the angiogram phase images. No extra-axial fluid collection is seen. Andrade-white matter differentiation is preserved. Ventricles, sulci, and cisterns: Normal in configuration. CT angiogram of the brain: The internal carotid arteries at the skull base are patent, as are the anterior and middle cerebral arteries. The vertebrobasilar system and posterior cerebral arteries are patent. The left vertebral artery is dominant. The basilar artery is diminutive. There is origin of the left posterior cerebral artery, and a large posterior communicating artery is seen on the right. There is no aneurysm, high-grade stenosis, or focal vessel cutoff identified throughout the intracranial circulation. Dural sinuses: Clear as visualized. Orbits: The bony orbits are intact. The orbital contents are normal as visualized. Sinuses and mastoids: The visualized paranasal sinuses are clear. The mastoid air cells are well pneumatized. Calvarium: Unremarkable. IMPRESSION: 1. There is no evidence of hemorrhage or mass effect noting angiographic phase technique. 2. Unremarkable CT angiogram of the brain. ACT 112: Negative or not required by law. Electronically signed by: Gaetano Camejo M.D. 04/02/2025 3:34 PM Neck CTA 04/02/25 14:54 CT ANGIOGRAPHY OF THE NECK WITH CONTRAST CLINICAL HISTORY: Right-sided numbness. COMPARISON STUDY: Cervical spine MRI June 28, 2019. Technique: CT angiography of the carotid and vertebral arteries was obtained using Optiray and 3D reconstruction on an independent workstation. NASCET criteria was utilized. Automated exposure control was utilized for the study. A dose lowering technique was utilized adhering to the principles of ALARA. Findings: Visualized portions of the lung apices are unremarkable. There is reversal of the cervical lordosis. There are no cervical spine fractures. There is no cervical lymphadenopathy. The bilateral common carotid, cervical internal carotid and vertebral arteries are patent. There is no stenosis, or dissection within the major vasculature of the neck. IMPRESSION: Unremarkable CTA of the neck. ACT 112: Negative or not required by law. Electronically signed by: José Miguel Wallace M.D. 04/02/2025 3:[address] 04/02/25 14:54 CT SCAN OF THE THORACIC SPINE WITHOUT IV CONTRAST CLINICAL HISTORY: Right-sided numbness. COMPARISON STUDY: Chest CT dated 04/22/2022. MRI of the lumbar spine dated 06/28/2019. TECHNIQUE: CT scan of the thoracic spine is performed from the lower cervical spine and the upper lumbar spine. Images are reviewed in the axial, sagittal, and coronal planes. IV contrast was not administered for this examination. A dose lowering technique was utilized adhering to the principles of ALARA. FINDINGS: The skeletal structures are well-mineralized. There is no evidence of fracture or malalignment involving the thoracic spine. Vertebral body height and alignment are maintained. There is minimal apparent dextrocurvature centered at T6. Tiny anterior osteophytes are seen throughout. No lytic or blastic lesion is seen. The transverse and spinous processes are intact. There is only minimal degenerative disc space narrowing throughout the thoracic region. There is no CT evidence of large disc herniation or high-grade central canal stenosis throughout the thoracic spine. The paraspinous soft tissues are within normal limits. The imaged posterior ribs appear intact. A 5 mm left lower lobe pulmonary nodule seen on image #266 is unchanged from the 04/22/[address] and of low suspicion. The imaged lung parenchyma is otherwise clear as visualized. IMPRESSION: No acute bony abnormality is seen involving the thoracic spine. ACT 112: Negative or not required by law. Electronically signed by: Gaetano Camejo M.D. 04/02/2025 3:46 PM Discharge Plan Visit Data Chief Complaint: Neuro Symptoms/Deficit Stated Complaint: PINS AND NEEDLES ENTIRE RT SIDE, MILD INCONTIENCE ED Provider: Amira Frausto Discharge Problem: Numbness on right side, Paresthesias Condition: Fair Forms Stand Alone Forms: [email or web address] Prescriptions Prescriptions: No Action Ajovy Autoinjector 225 mg/1.5 mL auto-injector 225 mg subcut MONTHLY Qty: 1.5 6RF Rx Instructions: USUALLY THE 1ST OF THE MONTH Mounjaro 2.5 mg/0.5 mL pen injector 2.5 mg subcut .weekly Qty: 2 3RF Rx Instructions: PER PT "NOT STARTED YET". inc to 5 mg after 4 weeks cholecalciferol (vitamin D3) 50 mcg (2,000 unit) capsule 50 mcg PO QAM sucralfate 1 gram tablet 1 g PO BID atorvastatin [Lipitor] 40 mg tablet 40 mg PO QPM magnesium 200 mg tablet 200 mg PO DAILY amitriptyline 25 mg tablet 25 mg PO HS pregabalin 200 mg capsule 200 mg PO TID Qty: 90 5RF meloxicam 15 mg tablet 15 mg PO DAILY omeprazole 40 mg capsule,delayed release(DR/EC) 40 mg PO BID glycopyrrolate 2 mg Tablet 2 mg PO BID PRN (Reason: IBS symptoms) acetaminophen [Tylenol Extra Strength] 500 mg Tablet 1,000 mg PO QID PRN (Reason: Pain) duloxetine 30 mg capsule,delayed release(DR/EC) 30 mg PO DAILY sumatriptan succinate [Imitrex] 100 mg tablet 1 tab PO DIRECTED PRN (Reason: Migraine Headache) estradiol 0.01 % (0.1 mg/gram) cream 1 appful vaginal 2XWK metformin 500 mg tablet extended release 24 hr 500 mg PO ACHS Nurtec ODT 75 mg tablet,disintegrating 75 mg PO DIRECTED PRN (Reason: migraine headache) Referrals Referrals: Sarmad Ashley DO [Primary Care Provider] -
[2025-04-02] MEDS: OPTIRAY 320 125ml IV ONE (15:13)
--- NOTE | 2025-04-02 15:31 | CT Scan Report ---
CT SCAN OF THE BRAIN WITHOUT IV CONTRAST CLINICAL HISTORY: Right sided numbness. COMPARISON STUDY: MRI of the brain June 07, 2019. Head CT February 22, 2021. TECHNIQUE: Unenhanced axial CT scan of the brain was performed from the vertex to the skull base. A dose lowering technique was utilized adhering to the principles of ALARA. FINDINGS: Brain parenchyma: No acute intracranial hemorrhage, midline shift or mass effect is present. Andrade-whi te matter differentiation is preserved. There are no extra-axial fluid collections. There are no find ings to suggest acute dural sinus thrombosis or acute territorial infarct. Ventricles, sulci, cisterns: There is no hydrocephalus. The basal cisterns are patent. Calvarium: Unremarkable. Sinuses and mastoids: The visualized paranasal sinuses are clear. The mastoid air cells are well pneu matized. Orbits: The bony orbits are grossly intact. IMPRESSION: No acute intracranial findings. ACT 112: Negative or not required by law. Electronically signed by: José Miguel Wallace M.D. 04/02/2025 3:30 PM
--- NOTE | 2025-04-02 15:36 | CT Scan Report ---
CT ANGIOGRAM OF THE BRAIN CLINICAL HISTORY: Right-sided numbness COMPARISON STUDY: Unenhanced CT scans of the brain dated 02/22/2021 and 04/02/2025 TECHNIQUE: Following the IV administration of 119 cc of Optiray 320, CT angiogram of the brain was pe rformed from the skull base to the vertex. Images are reviewed in the axial, sagittal, and coronal pl anes. 3-D MIPS images are created and assessed. IV contrast was administered without complication. A dose lowering technique was utilized adhering to the principles of ALARA. CT DOSE: 2473.14 mGy.cm FINDINGS: Brain parenchyma: There is no evidence of hemorrhage or mass effect noting angiographic phase techniq ue. There is no evidence of enhancing mass lesion on the angiogram phase images. No extra-axial fluid collection is seen. Andrade-white matter differentiation is preserved. Ventricles, sulci, and cisterns: Normal in configuration. CT angiogram of the brain: The internal carotid arteries at the skull base are patent, as are the ant erior and middle cerebral arteries. The vertebrobasilar system and posterior cerebral arteries are pa tent. The left vertebral artery is dominant. The basilar artery is diminutive. There is origin of the left posterior cerebral artery, and a large posterior communicating artery is seen on the righ t. There is no aneurysm, high-grade stenosis, or focal vessel cutoff identified throughout the intrac ranial circulation. Dural sinuses: Clear as visualized. Orbits: The bony orbits are intact. The orbital contents are normal as visualized. Sinuses and mastoids: The visualized paranasal sinuses are clear. The mastoid air cells are well pneu matized. Calvarium: Unremarkable. IMPRESSION: 1. There is no evidence of hemorrhage or mass effect noting angiographic phase technique. 2. Unremarkable CT angiogram of the brain. ACT 112: Negative or not required by law. Electronically signed by: Gaetano Camejo M.D. 04/02/2025 3:34 PM
--- NOTE | 2025-04-02 15:36 | CT Scan Report ---
CT ANGIOGRAPHY OF THE NECK WITH CONTRAST CLINICAL HISTORY: Right-sided numbness. COMPARISON STUDY: Cervical spine MRI June 28, 2019. Technique: CT angiography of the carotid and vertebral arteries was obtained using Optiray and 3D rec onstruction on an independent workstation. NASCET criteria was utilized. Automated exposure control was utilized for the study. A dose lowering technique was utilized adhering to the principles of ALA RA. Findings: Visualized portions of the lung apices are unremarkable. There is reversal of the cervical lordosis. There are no cervical spine fractures. There is no cervical lymphadenopathy. The bilateral common carotid, cervical internal carotid and vertebral arteries are patent. There is no stenosis, or dissection within the major vasculature of the neck. IMPRESSION: Unremarkable CTA of the neck. ACT 112: Negative or not required by law. Electronically signed by: José Miguel Wallace M.D. 04/02/2025 3:33 PM
--- NOTE | 2025-04-02 15:47 | CT Scan Report ---
CT SCAN OF THE THORACIC SPINE WITHOUT IV CONTRAST CLINICAL HISTORY: Right-sided numbness. COMPARISON STUDY: Chest CT dated 04/22/2022. MRI of the lumbar spine dated 06/28/2019. TECHNIQUE: CT scan of the thoracic spine is performed from the lower cervical spine and the upper maritza mbar spine. Images are reviewed in the axial, sagittal, and coronal planes. IV contrast was not admin istered for this examination. A dose lowering technique was utilized adhering to the principles of A MASON. FINDINGS: The skeletal structures are well-mineralized. There is no evidence of fracture or malalignm ent involving the thoracic spine. Vertebral body height and alignment are maintained. There is minima l apparent dextrocurvature centered at T6. Tiny anterior osteophytes are seen throughout. No lytic or blastic lesion is seen. The transverse and spinous processes are intact. There is only minimal degen erative disc space narrowing throughout the thoracic region. There is no CT evidence of large disc he rniation or high-grade central canal stenosis throughout the thoracic spine. The paraspinous soft tis sues are within normal limits. The imaged posterior ribs appear intact. A 5 mm left lower lobe pulmon kaushal nodule seen on image #266 is unchanged from the 04/22/[address] and of low suspicion. The imag ed lung parenchyma is otherwise clear as visualized. IMPRESSION: No acute bony abnormality is seen involving the thoracic spine. ACT 112: Negative or not required by law. Electronically signed by: Gaetano Camejo M.D. 04/02/2025 3:46 PM
--- NOTE | 2025-04-02 19:52 | History & Physical Report ---
Date of Service April 02, 2025 Assessment & Plan (1) Paresthesia of right arm and leg: (2) Small fiber neuropathy: (3) Proteinuria: (4) Type 2 diabetes mellitus with hyperglycemia: Plan In summary this is a 55-year-old female presenting with waxing and waning symptoms of right upper and lower extremity paresthesia in the setting of an established unspecified small fiber polyneuropathy Paresthesia // Chronic, unspecified, small fiber polyneuropathy Patient was initially called for admission to rule out TIA/CVA however the patient has no symptoms consistent with a central neurologic pathology nor is the waxing waning nature of their symptoms and their onset consistent with a vascular phenomenon; nonetheless, patient will be observed for minimum 24 hours to further assess their developing symptoms; though unlikely to be TIA/CVA, MRI will be pursued as discussed below; clinically this is most consistent with an autoimmune pathology with clinical assessment, and review of previous diagnostic testing performed at outside hospital system; the patient has previously been informed that their diabetes is a likely cause of their polyneuropathy, while this is a common condition the pattern or onset of their symptomatology and the lack of a significantly uncontrolled A1c (the patient's hemoglobin A1c has never been higher than 7.0%, after review of available charts), this is very unlikely to be the source of the polyneuropathy, especially considering the recent well- controlled state and progression of the symptoms;the patient has recently been seen by service observer chief in the local area who did obtain vasculitis testing with a positive ANCA marker, though the patient has no stigmata of vasculitides nor is their degree of illness consistent with that of a patient presenting with acute/subacute vasculitis; the patient does have a family history of autoimmune disease, they have not personally been previously diagnosed with a condition like this; at this time there is no clear indication for lumbar puncture for further diagnostic testing however pending the patient's MRI, this may be necessary for definitive diagnostic testing Pending MRI brain without contrast Every 4 hour neurochecks Continue home neuropathic pain management Admission and Anticipated Discharge Date Admission Date: 04/02/2025 Anticipated date of discharge: 04/03/25 History of Present Illness Chief Complaint: Right upper and lower extremity edema Primary Care Provider: Sarmad Ashley DO Ms. 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 The patient describes over the past 5 to 6 days they have had recurrent episodes of right upper and lower extremity "[id number]" beginning in the right hand extending proximally to involve the shoulder and extending along the right flank to eventually involve the entire right lower extremity. there are no alleviating or exacerbating factors per the patient's report. She is established with a local neurologist who primarily manages her symptomatology. She denies any focal weakness associated with her current symptom flare. They have a complicated neurologic history with previous assessment performed by [facility] and [facility] which led to a diagnosis of unspecified small fiber polyneuropathy. There has been no biopsy previously done for definitive diagnosis. Allergies Allergy/AdvReac Type Severity Reaction Status Date / Time lamotrigine [From Lamictal] Allergy Intermediate Rash Verified 04/02/25 19:33 nitrofurantoin Allergy Intermediate hives Verified 04/02/25 19:33 [From Macrobid] chlorhexidine Allergy Mild Rash Verified 04/02/25 19:33 erythromycin base AdvReac Mild Vomiting Verified 04/02/25 19:33 Home Medications Medication Instructions Recorded Confirmed Type omeprazole 40 mg capsule,delayed 40 mg PO BID 04/03/19 04/02/25 History release sucralfate 1 gram tablet 1 g PO BID 01/26/21 04/02/25 History cholecalciferol (vitamin D3) 50 50 mcg PO QAM 02/01/21 04/02/25 History mcg (2,000 unit) capsule acetaminophen 500 mg tablet 1,000 mg PO QID PRN Pain 02/22/21 04/02/25 History (Tylenol Extra Strength) atorvastatin 40 mg tablet (Lipitor) 40 mg PO QPM 03/12/21 04/02/25 History glycopyrrolate 2 mg tablet 2 mg PO BID PRN IBS symptoms 09/05/22 04/02/25 History magnesium 200 mg tablet 200 mg PO DAILY 12/03/24 04/02/25 History meloxicam 15 mg tablet 15 mg PO DAILY 12/17/24 04/02/25 History fremanezumab-vfrm 225 mg/1.5 mL 225 mg (1.5 mL) subcut MONTHLY 01/31/25 04/02/25 Rx subcutaneous auto-injector (Ajovy) #1.5 mL amitriptyline 25 mg tablet 25 mg PO HS 02/18/25 04/02/25 History tirzepatide 2.5 mg/0.5 mL 2.5 mg (0.5 mL) subcut .weekly #2 02/24/25 04/02/25 Rx subcutaneous pen injector mL (Mounjaro) duloxetine 30 mg capsule,delayed 30 mg PO DAILY 04/02/25 04/02/25 History release estradiol 0.01% (0.1 mg/gram) 1 appful vaginal 2XWK 04/02/25 04/02/25 History vaginal cream metformin 500 mg tablet,extended 500 mg PO ACHS 04/02/25 04/02/25 History release 24 hr pregabalin 200 mg capsule 200 mg PO TID #90 caps 04/02/25 04/02/25 Rx rimegepant 75 mg disintegrating 75 mg PO DIRECTED PRN migraine 04/02/25 04/02/25 History tablet (Nurtec ODT) headache sumatriptan succinate 100 mg 1 tab PO DIRECTED PRN Migraine 04/02/25 04/02/25 History tablet (Imitrex) Headache Past Med/Surg History Problem List (Updated 04/02/25 @ 19:46 by Mark Talamantes DO) Sleep apnea (Chronic) Paresthesia of right arm and leg 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 dysfunction-associated steatotic liver disease (MASLD) (Chronic) Polycystic ovarian syndrome (Chronic) Lumbar radiculopathy (Chronic) Irritable bowel syndrome (Chronic) Vitamin D deficiency (Chronic) Type 2 diabetes mellitus with hyperglycemia (Chronic) Migraine without aura and without status migrainosus, not intractable (Chronic) Small fiber neuropathy (Chronic) Leg length discrepancy (Chronic) Ureteral stricture (Chronic) Fibromyalgia (Chronic) Proteinuria (Chronic) Hyperlipidemia (Chronic) Temporomandibular joint disorder (Chronic) Medical History Vaginitis and vulvovaginitis Urinary tract infection Ulnar neuropathy of right upper extremity Right upper quadrant abdominal pain Exertional dyspnea Heart palpitations sinus tachycardia - reason for metoprolol Nephrolithiasis Surgical History S/P ureteral stent placement S/P tendon repair small finger right hand s/p dog bite + tendon repair with a graft repair History of repair of rotator cuff (07/12/22) left shoulder S/P hemorrhoidectomy Hx of laparoscopy Diagnostic with normal findings 07/26/2018. S/P wrist surgery RT WRIST SURGERY History of cystoscopy History of colonoscopy History of esophagogastroduodenoscopy (EGD) History of tooth extraction Family History Mother Suicide Depression Aunt Uterine cancer great aunt Father Dyslipidemia Heart disease Grandmother (Maternal) Kidney disease, Onset Age: 13 diagnosed with CKD as age 13 secondary to glomerulonephritis, at age 23 from renal failure and uremia Denies family history of Ovarian cancer Prostate cancer Myocardial infarction Breast cancer FH: pancreatic cancer Colorectal cancer Social History Smoking Status: Never smoker Second Hand Exposure: No; Do You Dip or Chew Tobacco: No; Hx Alcohol Use: No Hx Substance Use: No Preferred Language: Ukrainian Communication Ability: Effective Visual Impairment: No Limitations Hearing Ability: Normal Kiln Mechanic Required: No Beliefs That Will Affect Care: None Current Living Situation: Spouse current occupational status: employed 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 Physical Exam Physical Exam: General: Adult female in no acute distress Vital Signs: reviewed HEENT: pupils equally round reactive to light; extraocular motion intact without nystagmus Pulmonary: unrestricted symmetric chest wall excursion; clear to auscultation bilaterally Cardiovascular: regular rate and rhythm without murmurs, rubs, gallops; S1 and S2 normal; bilateral radial and posterior tibial pulse 2+ without associated lower extremity edema Gastrointestinal: soft, nontender Neurologic: CN II-XII intact; bilateral upper and lower extremity strength 5/5; chronically diminished sensation of the left lower extremity is persistent, there is noted blunted sensation of the right lower extremity that crosses dermatomes and myotomes; bilateral triceps, brachioradialis, and left lower extremity patellar and Achilles reflex +2/4; right lower extremity patellar and Achilles reflex +1/4; finger-nose and [id number]-dg-[id number] assessment was unremarkable; no noted bradykinesia Results & Data Results & Data Vital Signs (Past 12 Hours) Vital Signs Temp Pulse Pulse Resp BP BP Pulse Ox 04/02/25 18:15 92 H 04/02/25 18:00 89 16 136/96 98 04/02/25 16:00 87 16 156/99 H 96 04/02/25 15:30 87 149/106 H 95 04/02/25 15:00 96 H 153/92 H 98 04/02/25 14:30 98 H 14 146/86 H 99 04/02/25 14:13 96 04/02/25 14:13 04/02/25 14:05 98 H 04/02/25 12:11 36.6 C 103 H 18 163/79 H 98 O2 Del Method 04/02/25 18:15 04/02/25 18:00 Room Air 04/02/25 16:00 04/02/25 15:30 04/02/25 15:00 04/02/25 14:30 04/02/25 14:13 Room Air 04/02/25 14:13 Room Air 04/02/25 14:05 04/02/25 12:11 Room Air Laboratory Results noted 1+ protein on patient's urinalysis though did have 3-5 epithelial cells; TSH is within normal range of 1.679 Diagnostic Findings portable chest film, CT head, CTA head and neck, and CT thoracic spine were without acute abnormalities Code Status & VTE Plan Code Status Full Code VTE Prophylaxis Plan VTE Prophylaxis will be ordered: No Reason for no VTE drug order: Treatment not indicated PG Care Time/CCT Total # of Minutes Spent Total Time Spent with Patient: Total time spent is greater than 50% in coordination of care (as documented) at patient's floor/unit and/or counseling patient: Coding Level of Care Code 60104 INT INP/OBS CARE 2/55MIN Diagnoses Paresthesia of right arm and leg R20.2 Small fiber neuropathy G62.9 Proteinuria, unspecified type R80.9 Proteinuria type: unspecified Type 2 diabetes mellitus with hyperglycemia, without long-term current use of insulin E11.65 Diabetes mellitus manager long term care insulin use: without jail use (3) Proteinuria Proteinuria type: unspecified Qualified Code(s): R80.9 - Proteinuria, unspecified (4) Type 2 diabetes mellitus with hyperglycemia Diabetes mellitus manager long term care insulin use: without jail use Qualified Co de(s): E11.65 - Type 2 diabetes mellitus with hyperglycemia
[2025-04-02] MEDS: LORazepam 0.5 MG TAB PO STA (23:20)
[2025-04-03] MEDS: PREGABALIN 100 MG CAP PO SCH (00:32)
[2025-04-03] MEDS: ATORVASTATIN 40 MG TAB PO SCH (00:32)
[2025-04-03] MEDS: SUCRALFATE 1 GM TAB PO SCH (00:32)
[2025-04-03] MEDS: AMITRIPTYLINE HCL 25 MG TAB PO SCH (00:33)
--- NOTE | 2025-04-03 01:29 | Magnetic Resonance Report ---
EXAM: MR brain wo con CLINICAL HISTORY: TIA/CVA; right hemiparesis TECHNIQUE: MRI of the brain was performed without contrast with multiplanar sequences obtained. COMPARISON: 02/22/2021, CT and 06/07/2019 MR. FINDINGS: Brain Parenchyma: Thin altered signal pf periventricular white matter is noted (especialy at the occipital horns) suggesting of mild microvscaular ischemic changes. No evidence of acute infarction or hemorrhage. Normal rodriguez-white matter differentiation. No mass lesions or focal cortical abnormalities identified. Ventricles and Sulci: Normal size and configuration of the lateral ventricles, third ventricle, and fourth ventricle. No evidence of hydrocephalus or ventriculomegaly. Sylvian fissures, sulci, and cisterns are within normal limits. Posterior Fossa: Cerebellum and brainstem appear normal without evidence of mass lesions or signal abnormalities. Cranial Nerves: Normal course and appearance of cranial nerves identified. Vessels: No evidence of vascular malformations or aneurysms. Intracranial arteries and veins appear normal without evidence of stenosis or occlusion. Orbits and Skull Base: Orbits and skull base structures are normal without evidence of abnormalities. IMPRESSION: 1. No acute intracranial abnormality identified. 2. Mild microvascular ischemic changes (unchanged). Electronically signed by Connor Tovar 04-03-2025 01:28 AM
--- NOTE | 2025-04-03 05:25 | Electrocardiogram Report ---
Test Reason : Blood Pressure : */* mmHG Vent. Rate : 103 BPM Atrial Rate : 103 BPM P-R Int : 134 ms QRS Dur : 62 ms QT Int : 328 ms P-R-T Axes : 45 10 62 degrees QTcB Int : 429 ms Sinus tachycardia Possible Left atrial enlargement Anterior infarct (cited on or before 29-Oct-2021) Nonspecific T wave abnormality Abnormal ECG When compared with ECG of 29-Oct-2021 15:24, Questionable change in initial forces of Anterolateral leads Confirmed by Rodrigo Goins ([id number]) on 04/03/2025 5:24:47 AM Referred By: Confirmed By: Rodrigo Goins
[2025-04-03 07:11] LABS: Cholesterol 161 mg/dl (0-200); HDL Cholesterol 40 mg/dl; Triglycerides 109 mg/dl (0-150)
[2025-04-03 07:22] LABS: Hemoglobin A1C 5.6 % (4.5-5.6)
--- NOTE | 2025-04-03 08:01 | Hospitalist Progress Note ---
Date of Service April 03, 2025 Assessment & Plan (1) Progressive segmental demyelinating peripheral neuropathy: (2) Paresthesia of right arm and leg: (3) Small fiber neuropathy: (4) Proteinuria: (5) Type II diabetes mellitus, well controlled: Plan In summary this is a 55-year-old female presenting with waxing and waning symptoms of right upper and lower extremity paresthesia in the setting of an established unspecified small fiber polyneuropathy Paresthesia // Chronic, unspecified, small fiber polyneuropathy Patient initially presented with concern of possible TIA/CVA however there waxing waning symptomatology and the pattern of their neurologic findings are not consistent with a central neurologic pathology; they do a previous diagnosis of a chronic, unspecified small fiber polyneuropathy, with previous diagnostic testing performed at both [facility] and [facility]. Most recently an EMG was performed in 12/2024 which revealed left and right sural sensory nerve distal peak latency prolongation; there is no evidence of motor neuropathy nor myopathy. Given their symptoms of sensory loss, hyperreflexia, EMG with a demyelinating physiology without cavitary features, we will pursue additional laboratory assessment as detailed below. The patient's MRI brain was unremarkable for any acute pathology nor stigmata of multiple sclerosis, additional MRI of the cervical, thoracic spine may be warranted however not during an acute hospitalization pending SPEP, 24-hour UPEP, hepatitis B and C screening, HIV screening Will consult interventional radiology for lumbar puncture Outpatient testing for anti-MAG antibodies may be warranted if this assessment is unremarkable Continue home neuropathic pain management Admission and Anticipated Discharge Date Admission Date: April 02, 2025 Anticipated date of discharge: 04/04/25 Subjective Ms. 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 Results & Data Results & Data Vital Signs (Past 12 Hours) Vital Signs Temp Pulse Pulse Resp BP BP Pulse Ox 04/03/25 07:23 36.9 C 90 20 113/72 94 04/03/25 03:22 36.6 C 90 20 111/83 95 04/02/25 23:48 36.7 C 93 H 20 137/84 96 04/02/25 23:15 99 H 04/02/25 22:38 93 H 16 147/86 H 96 04/02/25 22:00 92 H 16 126/96 94 04/02/25 21:00 94 H 17 155/94 H 93 O2 Del Method 04/03/25 07:23 Room Air 04/03/25 03:22 Room Air 04/02/25 23:48 Room Air 04/02/25 23:15 04/02/25 22:38 Room Air 04/02/25 22:00 Room Air 04/02/25 21:00 Room Air Laboratory Results hemoglobin A1c of 5.6%; lipid panel overall unremarkable, well-controlled with current medical management Diagnostic Findings MRI brain without contrast is without any evidence of acute ischemic events nor stigmata of multiple sclerosis PG Care Time/CCT Total # of Minutes Spent Total Time Spent with Patient: Total time spent is greater than 50% in coordination of care (as documented) at patient's floor/unit and/or counseling patient: Coding Level of Care Code 14694 SUB INP/OBS CARE 2/35MIN Diagnoses Progressive segmental demyelinating peripheral neuropathy G61.89 Paresthesia of right arm and leg R20.2 Small fiber neuropathy G62.9 Proteinuria, unspecified type R80.9 Proteinuria type: unspecified Type II diabetes mellitus, well controlled E11.9 (4) Proteinuria Proteinuria type: unspecified Qualified Code(s): R80.9 - Proteinuria, unspecified
[2025-04-03] MEDS: MAGNESIUM OXIDE 400 MG TAB PO SCH (08:09)
[2025-04-03] MEDS: CHOLECALCIFEROL 25 MCG (1000 UNITS) TAB PO SCH (08:09)
[2025-04-03 08:53] LABS: Hep B Surface Ag with confirm Negative (Negative)
[2025-04-03 08:58] LABS: Hep C Ab Rflx HepCQuant RNA Negative (Negative)
[2025-04-03 14:19] LABS: CSF Count Tube # 3; CSF Xanthrochromic No xanthochromia; Red Blood Cell CSF Manual 0 (0); White Blood Cell CSF Manual 0 (0-5)
--- NOTE | 2025-04-03 14:30 | Fluoroscopy Report ---
LUMBAR PUNCTURE CLINICAL HISTORY: Polyneuropathy PROCEDURE: Procedure and risks were explained. Informed consent was obtained. A final timeout was com pleted. The patient was placed prone on the fluoroscopic exam table. The lower lumbar region was prep ped and draped in sterile fashion. 1% lidocaine was utilized for skin anesthesia. Utilizing fluoroscopic guidance, a 22-gauge Sprotte spinal needle was advanced into the intrathecal s pace at the L2-3 disc space. Fluoroscopic spot images were obtained. Approximately 8 mL of clear CSF was removed and sent to the lab for analysis. The needle was removed and Band-Aid applied. The patien t tolerated the procedure well. Vital signs will be monitored postprocedure. Fluoroscopy time 5 seconds. Study dosed is 5.33 mGy. IMPRESSION: Lumbar puncture as above. Performed, dictated, and signed by Quinton Larson PA-C; to be co-signed by Dr. Gaetano Camejo. Electronically signed by: Gaetano Camejo M.D. 04/03/2025 2:41 PM
[2025-04-03] MEDS: MECLIZINE HCL 25 MG TAB PO STA (21:30)
[2025-04-04 07:19] VITALS: BP 98/64; RESP 20; TEMP 97.7; O2SAT 95
--- NOTE | 2025-04-04 07:39 | Hospitalist Progress Note ---
Date of Service April 04, 2025 Assessment & Plan (1) Progressive segmental demyelinating peripheral neuropathy: (2) Paresthesia of right arm and leg: (3) Small fiber neuropathy: (4) Proteinuria: (5) Type II diabetes mellitus, well controlled: Plan In summary this is a 55-year-old female presenting with waxing and waning symptoms of right upper and lower extremity paresthesia in the setting of an established unspecified small fiber polyneuropathy Paresthesia // Chronic, unspecified, small fiber polyneuropathy Patient initially presented with concern of possible TIA/CVA however there waxing waning symptomatology and the pattern of their neurologic findings are not consistent with a central neurologic pathology; they do a previous diagnosis of a chronic, unspecified small fiber polyneuropathy, with previous diagnostic testing performed at both [facility] and [facility]. Most recently an EMG was performed in 12/2024 which revealed left and right sural sensory nerve distal peak latency prolongation; there is no evidence of motor neuropathy nor myopathy. Given their symptoms of sensory loss, hyperreflexia, EMG with a demyelinating physiology without cavitary features, we will pursue additional laboratory assessment as detailed below. The patient's MRI brain was unremarkable for any acute pathology nor stigmata of multiple sclerosis, additional MRI of the cervical, thoracic spine may be warranted however not during an acute hospitalization pending SPEP, 24-hour UPEP Hepatitis B and C, HIV screens were all negative Lumbar puncture was obtained 04/03 without complication; at this time the unremarkable measures and elevated CSF protein, though this is nonspecific and additional testing is still pending as detailed above Outpatient testing for anti-MAG antibodies may be warranted if this assessment is unremarkable Continue home neuropathic pain management Admission and Anticipated Discharge Date Admission Date: April 02, 2025 Anticipated date of discharge: 04/04/25 Harry Lundberg is a 55-year-old female whose active medical conditions include unspecified small fiber polyneuropathy, fibromyalgia, metabolic associated steatotic liver disease, 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 No acute overnight events Review of Systems Review of Systems: Remaining review of constitutional, pulmonary, cardiovascular, gastrointestinal, genitourinary, musculoskeletal, neurologic, and integumentary systems was unremarkable except for pertinent positive and negative findings noted in the HPI above. Physical Exam Physical Exam: General: Adult female in no acute distress Vital Signs: reviewed HEENT: pupils equally round reactive to light; extraocular motion intact without nystagmus Pulmonary: unrestricted symmetric chest wall excursion; clear to auscultation bilaterally Cardiovascular: regular rate and rhythm without murmurs, rubs, gallops; S1 and S2 normal; bilateral radial and posterior tibial pulse 2+ without associated lower extremity edema Gastrointestinal: soft, nontender Neurologic: CN II-XII grossly intact Results & Data Results & Data Vital Signs (Past 12 Hours) Vital Signs Temp Pulse Pulse Resp BP Pulse Ox O2 Del Method 04/04/25 07:18 36.5 C 83 20 98/64 L 95 Room Air 04/04/25 02:58 36.6 C 82 18 104/68 94 Room Air 04/03/25 23:10 36.6 C 90 20 107/70 93 Room Air 04/03/25 21:45 108 H 04/03/25 19:40 36.5 C 96 H 18 127/77 96 Room Air Laboratory Results CSF studies available for review include white blood cell count, red blood cell count, glucose, total protein; the only remarkable result is a slightly elevated total protein of 56; IgG, myelin basic protein, IgG oligoclonal band are currently pending 24-hour urine collection for UPEP has been completed, results are pending; SPEP results are currently pending PG Care Time/CCT Total # of Minutes Spent Total Time Spent with Patient: Total time spent is greater than 50% in coordination of care (as documented) at patient's floor/unit and/or counseling patient: Coding Level of Care Code 50674 SUB INP/OBS CARE 2/35MIN Diagnoses Progressive segmental demyelinating peripheral neuropathy G61.89 Paresthesia of right arm and leg R20.2 Small fiber neuropathy G62.9 Proteinuria, unspecified type R80.9 Proteinuria type: unspecified Type II diabetes mellitus, well controlled E11.9 (4) Proteinuria Proteinuria type: unspecified Qualified Code(s): R80.9 - Proteinuria, unspecified
[2025-04-04 09:39] VITALS: PULSE 76
--- NOTE | 2025-04-04 20:03 | Discharge Summary ---
Discharge Summary Date of Service April 04, 2025 Principal Dx & Hospital Course #1 = Principal Diagnosis (1) Progressive segmental demyelinating peripheral neuropathy: (2) Paresthesia of right arm and leg: (3) Small fiber neuropathy: (4) Proteinuria: (5) Type II diabetes mellitus, well controlled: Plan In summary this is a 55-year-old female presenting with waxing and waning symptoms of right upper and lower extremity paresthesia in the setting of an established unspecified small fiber polyneuropathy Paresthesia // Chronic, unspecified, small fiber polyneuropathy Patient initially presented with concern of possible TIA/CVA however there waxing waning symptomatology and the pattern of their neurologic findings are not consistent with a central neurologic pathology; they do a previous diagnosis of a chronic, unspecified small fiber polyneuropathy, with previous diagnostic testing performed at both [facility] and [facility]. Most recently an EMG was performed in 12/2024 which revealed left and right sural sensory nerve distal peak latency prolongation; there is no evidence of motor neuropathy nor myopathy. Given their symptoms of sensory loss, hyperreflexia, EMG with a dem yelinating physiology without cavitary features, we will pursue additional laboratory assessment as detailed below. The patient's MRI brain was unremarkable for any acute pathology nor stigmata of multiple sclerosis, additional MRI of the cervical, thoracic spine may be warranted however not during an acute hospitalization pending SPEP, 24-hour UPEP Hepatitis B and C, HIV screens were all negative Lumbar puncture was obtained 04/03 without complication; at this time the unremarkable measures and elevated CSF protein, though this is nonspecific and additional testing is still pending as detailed above Outpatient testing for anti-MAG antibodies may be warranted if this assessment is unremarkable Continue home neuropathic pain management Notes For Next Care Provider Medication Changes From Visit Start dexamethasone 2 mg p.o. daily for 5 days Admission HPI Per Admitting Provider Ms. 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 The patient describes over the past 5 to 6 days they have had recurrent episodes of right upper and lower extremity "[id number]" beginning in the right hand extending proximally to involve the shoulder and extending along the right flank to eventually involve the entire right lower extremity. there are no alleviating or exacerbating factors per the patient's report. She is established with a local neurologist who primarily manages her symptomatology. She denies any focal weakness associated with her current symptom flare. They have a complicated neurologic history with previous assessment performed by [facility] and [facility] which led to a diagnosis of unspecified small fiber polyneuropathy. There has been no biopsy previously done for definitive diagnosis. Discharge Exam General: Adult female in no acute distress Vital Signs: reviewed HEENT: pupils equally round reactive to light; extraocular motion intact without nystagmus Pulmonary: unrestricted symmetric chest wall excursion; clear to auscultation bilaterally Cardiovascular: regular rate and rhythm without murmurs, rubs, gallops; S1 and S2 normal; bilateral radial and posterior tibial pulse 2+ without associated lo wer extremity edema Gastrointestinal: soft, nontender Neurologic: CN II-XII grossly intact Discharge Plan Discharge Items Patient Disposition: Home - Self-Care Reason For Visit: TIA/CVA Discharge Diagnosis: Progressive segmental demyelinating peripheral neuropathy Condition on Discharge: Fair Activity: Per Instructions section Non-emergency contact: Primary Care Provider and Neurologist Call non-emergency contact if: you have any medication questions and your symptoms worsen Follow-up/Referrals: Bayron Rangel MD [Physician] - (Neurology will call Pt to schedule follow up) Sarmad Ashley DO [Primary Care Provider] - 04/11/25 2:00 pm Diet: Carb Consistent or DM2 and Low Fat Fluids: 1800ml (7 cups) Addtl Attending Provider Instructions: You were admitted to [facility] for persistent and progressive "numbness and tingling" of the right upper and lower extremity involving the right flank. The symptoms mildly improved during your hospitalization however did not fully resolve. You were admitted due to concern possible TIA/CVA With regard to your presenting paresthesia, and MRI brain without contrast was obtained to rule out ischemic injury; there was no evidence of CVA. Given the persistence of your symptoms, a TIA is very unlikely. Additional testing for possible demyelinating peripheral neuropathy use was pursued including a lumbar puncture, serologic testing for viral conditions known to be associated with these conditions, as well as a SPEP and 24-hour UPEP; the results of these last 2 tests are currently pending at the time of your discharge. We will pursue a brief course of oral steroids to try and alleviate some of your symptomatology, while continuing your usual analgesic regimen. Recommend close follow-up with your neurologist for continued care and review of ordered laboratory studies during your hospitalization. Of note your diabetes and hyperlipidemia are very well-controlled; please c ontinue with your usual medication regimen and nonpharmacologic changes to continue maintaining control. Thank you for choosing [facility] as your healthcare provider. Pending Studies at Discharge: Yes Studies:: SPEP, UPEP, multiple sclerosis lumbar puncture panel, CSF [facility] Stand-Alone Forms: My [facility], Work/School Release Medications and DC Order Prescriptions: New dexamethasone 2 mg tablet 2 mg PO DAILY 5 Days Qty: 5 0RF Continued Ajovy Autoinjector 225 mg/1.5 mL auto-injector 225 mg subcut MONTHLY Qty: 1.5 6RF Rx Instructions: USUALLY THE 1ST OF THE MONTH Mounjaro 2.5 mg/0.5 mL pen injector 2.5 mg subcut .weekly Qty: 2 3RF Rx Instructions: PER PT "NOT STARTED YET". inc to 5 mg after 4 weeks cholecalciferol (vitamin D3) 50 mcg (2,000 unit) capsule 50 mcg PO QAM sucralfate 1 gram tablet 1 g PO BID atorvastatin [Lipitor] 40 mg tablet 40 mg PO QPM magnesium 200 mg tablet 200 mg PO DAILY amitriptyline 25 mg tablet 25 mg PO HS pregabalin 200 mg capsule 200 mg PO TID Qty: 90 5RF omeprazole 40 mg capsule,delayed release(DR/EC) 40 mg PO BID duloxetine 30 mg capsule,delayed release(DR/EC) 30 mg PO DAILY sumatriptan succinate [Imitrex] 100 mg tablet 1 tab PO DIRECTED PRN (Reason: Migraine Headache) estradiol 0.01 % (0.1 mg/gram) cream 1 appful vaginal 2XWK metformin 500 mg tablet extended release 24 hr 500 mg PO ACHS Nurtec ODT 75 mg tablet,disintegrating 75 mg PO DIRECTED PRN (Reason: migraine headache) Changed acetaminophen [Tylenol Extra Strength] 500 mg Tablet 1,000 mg PO TID PRN (Reason: Pain) Qty: 0 0RF Held meloxicam 15 mg tablet 15 mg PO DAILY Hold Instructions: Resume on 04/09/25. glycopyrrolate 2 mg Tablet 2 mg PO BID PRN (Reason: IBS symptoms) Hold Instructions: Resume on 04/09/25. Discharge Orders: Discharge Order (Routine); Ordered 04/04/25 Ordered By: Mark Calvillo/Other Patient Handouts: What Is a TIA?, Preventing Deep Vein Thrombosis Admission Data Admit Date/Time: 04/02/25 18:23 Attending Provider: Mark Talamantes Admit Provider: Mark Talamantes Primary Care Provider: Sarmad Ashley Other Providers: Myron Montoya Other Interventions: Discharge Summary Assessment (RN) Last Done: 04/04/25 08:36 Hospital Stay Data Consultations 04/02/25 17:01 ED Decision to Admit Stat Diagnostic Imagining Performed 04/02/25 14:54 CT head/brain wo con Stat CT thoracic spine wo con Stat CTA head w con [CT angio head w con] Stat CTA neck with con [CT angio neck with con] Stat 04/03/25 00:08 MR brain wo con Routine 04/03/25 07:59 IR lumbar puncture diagnostic Routine Pending Results Patient Have Any Pending Studies at Discharge: Yes Discharge Instructions Given to Patient (Per Discharging Provider) You were admitted to [facility] for persistent and progressive "numbness and tingling" of the right upper and lower extremity involving the right flank. The symptoms mildly improved during your hospitalization however did not fully resolve. You were admitted due to concern possible TIA/CVA With regard to your presenting paresthesia, and MRI brain without contrast was obtained to rule out ischemic injury; there was no evidence of CVA. Given the persistence of your symptoms, a TIA is very unlikely. Additional testing for possible demyelinating peripheral neuropathy use was pursued including a lumbar puncture, serologic testing for viral conditions known to be associated with these conditions, as well as a SPEP and 24-hour UPEP; the results of these last 2 tests are currently pending at the time of your discharge. We will pursue a brief course of oral steroids to try and alleviate some of your symptomatology, while continuing your usual analgesic regimen. Recommend close follow-up with your neurologist for continued care and review of ordered laboratory studies during your hospitalization. Of note your diabetes and hyperlipidemia are very well-controlled; please continue with your usual medication regimen and nonpharmacologic changes to continue maintaining control. Thank you for choosing [facility] as your healthcare provider. Total Time Total Time Spent Total Time Spent (In Minutes): I personally spent 65 minutes in today's discharge including reviewed patient's chart, my physical exam, discussion of the patient's plan of care with the patient and her spouse at bedside, coordination of laboratory results to be completed after the patient's discharge. Coding Level of Care Code 26666 INP/OBS DISCH >30 MIN Diagnoses Progressive segmental demyelinating peripheral neuropathy G61.89 Paresthesia of right arm and leg R20.2 Small fiber neuropathy G62.9 Proteinuria, unspecified type R80.9 Proteinuria type: unspecified Type II diabetes mellitus, well controlled E11.9
[2025-04-09 07:58] LABS: Albumin 3.9 g/dL (3.8-4.8); Beta-1-Globulin 0.4 g/dL (0.4-0.6); Gamma Globulin 1.1 g/dL (0.8-1.7); Total Protein 6.9 g/dL (6.1-8.1)
[2025-04-09 08:21] LABS: Creatinine, 24 hr Urine 0.98 g/24 h (0.50-2.15); Protein, Urine 24 Hour 168 mg/24 h (<150); Ur Albumin % 68 %; Ur Alpha-1-globulin % 4 %; Ur Alpha-2-globulin % 11 %; Ur Beta Globulin % 11 %; Ur Gamma Globulin % 7 %; Ur Protein/Creatinine Rat mg/g 171 mg/g creat (<150)
[2025-04-11 00:23] LABS: Albumin 4.4 g/dL (3.6-5.1); Albumin, CSF 32.9 mg/dL (8.0-42.0); Synthesis Rate, IgG CSF -4.1 mg/24 h (-9.9-3.3)
== END 2025-04-04 11:24 | disposition home or self-care (01) | DRG 74 ==
LOC: SUATTDRO → ED 12:03 → 2S 18:23 → INTOOBSV 18:23 → OBSVTOIN 18:23 → 2S 22:38